=== PATIENT | male | born 1980 | race Caucasian/White ===

== ENCOUNTER 2021-04-05 15:45 | Emergency (ER) | payer MEDICAID, SELFPAY ==
[2021-04-05 18:05] VITALS: BP 154/89; PULSE 71; RESP 16; TEMP 36.3; O2SAT 97; BMI 42.0
[2021-04-05 18:43] LABS: Glucose, Whole Blood 102 mg/dL (60-115)
--- NOTE | 2021-04-07 09:09 | ED.EXTPRO ---
HPI - Extremity Problem General Chief complaint: Extremity Problem Stated complaint: diabetic..foot and hand pain Time Seen by Provider: 04/05/21 18:36 History of Present Illness HPI Narrative: Patient complains of several months of pain in both hands and both feet with no injury He is a diabetic who stopped using his insulin about a year ago, but he does periodically check his fingersticks when they are usually around 200 He has no other complaint no fever no chills no dizziness no weakness Related Data Previous Rx's Medication Instructions Recorded nitrofurantoin 100 mg PO Q12H 5 Days #10 cap 04/05/21 monohydrate/macrocrystals 100 mg capsule (Macrobid) Allergies Allergy/AdvReac Type Severity Reaction Status Date / Time No Known Allergies Allergy Unverified 12/24/19 16:14 [No Known Allergies*] Review of Systems Review of Systems: Bilateral hand and foot pain are positive Negatives are no fever no chills no dizziness no weakness no fainting no feeling faint no headache no neck pain no chest pain no abdominal pain no dysuria no muscle weakness Yes all other systems are reviewed and are negative [facility] Past Medical History Source: nursing notes reviewed Medical History (Updated 04/06/21 @ 00:00 by Background Daemon) Diabetes mellitus, type 2 Social History Social History Advance Directives: No Advance Directives Information Provided: No Physical Exam Vital Signs: Vital Signs: Last Vital Signs Temp 97.3 F 04/05/21 18:05 Pulse 71 04/05/21 18:05 Resp 16 04/05/21 18:05 BP 154/89 H 04/05/21 18:05 Pulse Ox 97 04/05/21 18:05 BMI result Body Mass Index 42.0 General appearance is no acute distress Head is normocephalic atraumatic The pupils equal round reactive to light extraocular motions intact Chest is clear to auscultation bilateral no respiratory distress Extremities full range of motion x4 Exam of both feet does not reveal any redness or swelling or wounds, pulses are 2+ and symmetrical in dorsalis pedis which was easily palpated Both hands are normal in appearance with full range of motion no swelling no wounds Course Course Course Narrative: Patient with possible diabetic neuropathy, no sign of any infection, pulses were all good no sign of any ischemia and hands or feet no wounds, ambulates easily was discharged, prescription for starting dose of Neurontin was sent to pharmacy and he has an appointment with his primary care doctor on the 19 of April in 2 weeks MDM - Extremity (Nontraumatic) Lab Data Labs: Lab Results 04/05/21 Range/Units 18:39 POC Glucose 102 (60-115) mg/dL Discharge Plan Discharge Clinical Impression: Diabetic neuropathy Patient Disposition: Home, Self-Care Additional Instructions: pain in feet and hands may be from diabetic neuropathy which may be caused by untreated diabetes follow with your dr as scheduled apr 19 . it is very important to treat your diabetes and follow with your doctor return any time if worse Prescriptions: New nitrofurantoin monohyd/m-cryst [Macrobid] 100 mg capsule 100 mg PO Q12H 5 Days Qty: 10 RF: 0 Stand Alone Forms: Work/School Release Interventions: ED Discharge Assessment Last Done: 04/05/21 19:11 Discharge Date/Time: 04/05/21 19:19
== END 2021-04-05 19:19 | disposition home or self-care (01) ==
PROVIDERS: Emergency Provider Emergency Medicine Emergency Medical Services; PCP Family Medicine
DX: E11.40 Type 2 diabetes mellitus with diabetic neuropathy, unspecified (principal); M79.642 Pain in left hand; M79.641 Pain in right hand; M79.672 Pain in left foot; M79.671 Pain in right foot; Z91.14 Patient's other noncompliance with medication regimen
CPT/HCPCS: 82947; 99283

== ENCOUNTER 2021-07-23 06:11 | Emergency (ER) | payer MEDICAID, SELFPAY ==
--- NOTE | ~2021-07-23 | CT_ITS ---
EXAMINATION: CT ABDOMEN AND PELVIS WITHOUT CONTRAST CLINICAL INFORMATION: Left flank pain COMPARISON: January 21, 2019 TECHNIQUE: Multidetector volumetric imaging was performed from the superior aspect of the liver through the pubic symphysis. Sagittal and coronal reformatted images were obtained on the technologist's workstation. This CT examination was performed using dose optimization techniques as appropriate, variously including the following: *Automated exposure control *Adjustment of mA and/or kV according to patient size (this includes techniques or standardized protocols for targeted exams where dose is matched to indication/reason for exam; i.e. extremities or head) *Use of iterative reconstruction technique DLP: 625 mGy-cm FINDINGS: LUNG BASES: The visualized lung bases are unremarkable. No pleural or pericardial effusion. LIVER, GALLBLADDER, AND BILIARY TREE: The liver is normal in size, shape, and attenuation. No focal hepatic lesion or biliary ductal dilatation is present. The gallbladder is unremarkable with no evidence of radiopaque gallstones, gallbladder wall thickening, or obvious pericholecystic inflammatory changes. PANCREAS: Unremarkable. No abnormal mass or peripancreatic inflammatory change. SPLEEN: Unremarkable. ADRENAL GLANDS: Unremarkable. KIDNEYS AND URETERS: The right kidney has a nonobstructing 2 mm calculus within the upper pole. No right hydronephrosis identified. No right renal mass is present. Right ureter appears unremarkable. There is mild hydronephrosis of the left upper collecting system. There is a 3 mm partially obstructing proximal left ureteral calculus present. There is also a 1 mm nonobstructing lower pole calculus. BLADDER: Unremarkable. GASTROINTESTINAL TRACT: No dilated loops of large or small bowel are seen. No free air or free fluid. No pericolonic inflammatory change. The appendix appears unremarkable. ABDOMINAL WALL: No significant hernia is appreciated. LYMPH NODES: No lymphadenopathy appreciated. VASCULAR: Unremarkable. PELVIC VISCERA: Prostate gland calcifications present. OSSEOUS STRUCTURES: Unremarkable. There is anterior bridging of the L3-L4 vertebral bodies. CT/CT abdomen pelvis wo con IMPRESSION: Partially obstructing 3 mm proximal left ureteral calculus with mild left hydronephrosis. Bilateral nephrolithiasis. Fleischner guidelines were followed.
[2021-07-23 06:20] VITALS: BP 140/89; PULSE 76; RESP 14; TEMP 36.7; O2SAT 99; BMI 41.1
[2021-07-23 07:26] VITALS: BP 128/82; PULSE 73; RESP 18; TEMP 36.9; O2SAT 97
[2021-07-23 07:40] LABS: MANUAL DIFF FLAG NO
[2021-07-23 07:41] LABS: Basophils Absolute Auto 0.1 X10*3/uL (0.0-0.2); Basophils Percent Auto 0.5 % (0-2); Eosinophils Absolute Auto 0.2 X10*3/uL (0.0-0.4); Eosinophils Percent Auto 1.5 % (0-4); Hematocrit 39.7 % (42.0-52.0); Hemoglobin 13.7 g/dl (14.0-18.0); Imm Gran Abs Auto 0.06 X10*3/uL (0.00-0.03); Imm Gran Pct Auto 0.6 % (0.0-0.4); Lymphocytes Absolute Auto 1.8 X10*3/uL (1.2-4.9); Lymphocytes Percent Auto 17.4 % (20-40); Mean Corpuscular HGB Conc 34.5 g/dl (31.0-36.0); Mean Corpuscular Hemoglobin 31.3 pg (27.0-33.0); Mean Corpuscular Volume 90.6 fL (80.0-98.0); Mean Platelet Volume 10.8 fL (9.4-12.4); Monocytes Absolute Auto 0.8 X10*3/uL (0.1-1.2); Monocytes Percent Auto 7.6 % (2-11); Neutrophils Absolute Auto 7.6 x10*3/uL (2.0-8.3); Neutrophils Percent Auto 72.4 % (45-73); Platelet Count 285 X10*3/uL (160-400); Red Blood Count 4.38 X10*6/uL (4.60-5.80); Red Cell Distribution Width 11.9 % (11.0-16.0); White Blood Count 10.4 X10*3/uL (4.8-10.8)
[2021-07-23 08:03] LABS: Alanine Aminotransferase 11 U/L (0-40); Albumin Level 4.1 g/dL (3.5-5.0); Alkaline Phosphatase 70 U/L (39-117); Anion Gap 12 (12-20); Aspartate Amino Transferase 13 U/L (5-37); Bilirubin Total 0.8 mg/dL (0.0-1.0); Blood Urea Nitrogen 17 mg/dL (9-16); Calcium 9.4 mg/dL (8.4-10.2); Carbon Dioxide 24 mmol/L (22-29); Chloride 105 mmol/L (96-108); Creatinine Clr Calc Pharmacy 131.9; Estimated Glomerular Filt Rate > 60; Glucose Random 144 mg/dL (60-115); Potassium 4.3 mmol/L (3.3-5.1); Sodium 137 mmol/L (135-145); Total Protein 7.2 g/dL (6.5-8.0)
--- NOTE | 2021-07-23 08:07 | ED_ITS ---
HPI - Back Pain/Injury General Chief Complaint: Back Pain/Injury Stated Complaint: left lower back pain Time Seen by Provider: 07/23/21 07:42 Source: patient Mode of arrival: ambulatory Limitations: no limitations History of Present Illness HPI Narrative: 40-year-old male came in for evaluation of left flank pain. Walked into the emergency department for left flank pain that started early this morning woke him up from sleep, pain started as 10/10 severe colicky pain that radiated to the left groin area, associated with dark urine but no blood, no fever, no chills, no nausea, no vomiting. Related Data Previous Rx's Medication Instructions Recorded nitrofurantoin 100 mg PO Q12H 5 Days #10 cap 04/05/21 monohydrate/macrocrystals 100 mg capsule (Macrobid) oxycodone 5 mg tablet 5 mg PO TID PRN #8 tab 07/23/21 prednisone 20 mg tablet 20 mg PO BID #10 tab 07/23/21 tamsulosin 0.4 mg capsule (Flomax) 0.4 mg PO DAILY #7 cap 07/23/21 Allergies Allergy/AdvReac Type Severity Reaction Status Date / Time No Known Allergies Allergy Unverified 12/24/19 16:14 [No Known Allergies*] Review of Systems Review of Systems: All other systems are reviewed and are negative Constitutional: Reports as per HPI and Reports no additional constitutional complaints Eyes: Reports as per HPI and Reports no additional eye complaints Reports system reviewed and no additional complaints, except as documented Cardiovascular: Reports as per HPI and Reports no additional cardiovascular complaints Respiratory: Reports as per HPI and Reports no additional respiratory complaints Gastrointestinal: Reports as per HPI and Reports no additional gastrointestinal complaints Genitourinary: Reports no additional female genitourinary complaints Musculoskeletal: Reports no additional musculoskeletal complaints Skin/Breast: Reports system reviewed and no additional complaints, except as docu Psychiatric: Reports no additional psychiatric complaints Endocrine: Reports no additional endocrine complaints Hematologic/Lymphatic: Reports no additional hematologic/lymphatic complaints Allergic/Immunologic: Reports no additional allergic/immunologic complaints Reports system reviewed and no additional complaints, except as documented and Reports Abnormal speech present [facility] Past Medical History Medical History Diabetes mellitus, type 2 Social History Social History Advance Directives: Yes Advance Directives Information Provided: Yes Advance Directives on File: No Physical Exam Vital Signs: Vital Signs: Last Vital Signs Temp 98.4 F 07/23/21 07:26 Pulse 73 07/23/21 07:26 Resp 18 07/23/21 07:26 BP 128/82 07/23/21 07:26 Pulse Ox 97 07/23/21 07:26 BMI result Body Mass Index 41.1 Vital signs have been reviewed as appeared to be correct. Blood pressure normal. Heart rate normal. Respiration rate normal. Temperature normal. Oxygen saturation normal. Appearance: Alert. Oriented X3. No acute distress. Head: Normal external exam. Normocephalic. Atraumatic. No [place] signs noted. No raccoon eyes noted Eyes: PERRLA. EOMI. Conjunctiva and sclera normal. Eyelids normal. ENT: TM's Normal. Pharynx normal. Uvula midline. Moist mucous membranes. No trismus noted. No drooling noted. No muffled voice noted. Neck: Normal inspection. Neck supple. FROM. No adenopathy. Thyroid Normal. No m eningeal signs. No neck mass noted. CVS: Normal heart rate and rhythm. Heart sound normal. No murmurs noted. Pulses normal throughout. Respiratory: No respiratory distress. Painless inspiration. Breath sounds normal. No wheezes/rales/rhonchi noted. Chest nontender. No accessory muscle usage noted or decreased air movement noted. Abdomen: Soft and nontender. Bowel sounds normal in all 4 quadrants. No distention noted. No organomegaly noted. No visible injury noted. Back: Left CVA tenderness. Full range of motion noted. Skin: Skin warm and dry. Normal skin color. Normal skin turgor. No rashes/lesions/lacerations noted. Extremities: No lower extremity edema. Extremities exhibit normal range of motion. Extremities nontender. Neuro: Oriented X 3. Cranial nerve exam: II-XII are grossly intact No motor deficit. No sensory deficit. Reflexes normal. Course Course Course Narrative: Assessment and plan. 40-year-old male came in with left flank/left abdominal pain, physical exam/CT abdomen and pelvis is consistent with left ureteric 3 mm proximal stone with hydronephrosis, patient now is comfortable. Will discharge the patient on Flomax/prednisone/oxycodone. Patient stated that he does not have an ID which may be an issue for pharmacy to fill the narcotic prescription. Patient is able to tolerate p.o. intake. MDM - Back Pain/Injury Medical Records Attestation: I reviewed the patient's medical records. Lab Data Attestation: I reviewed the patient's lab results. Result diagrams: 07/23/21 07:34 07/23/21 07:34 Labs: Lab Results 07/23/21 07/23/21 07/23/21 Range/Units 07:34 07:34 08:48 WBC 10.4 (4.8-10.8) X10*3/uL RBC 4.38 L (4.60-5.80) X10*6/uL Hgb 13.7 L (14.0-18.0) g/dl Hct 39.7 L (42.0-52.0) % MCV 90.6 (80.0-98.0) fL MCH 31.3 (27.0-33.0) pg MCHC 34.5 (31.0-36.0) g/dl RDW 11.9 (11.0-16.0) % Plt Count 285 (160-400) X10*3/uL MPV 10.8 (9.4-12.4) fL Immature Gran % (Auto) 0.6 H (0.0-0.4) % Neut % (Auto) 72.4 (45-73) % Lymph % (Auto) 17.4 L (20-40) % [place] % (Auto) 7.6 (2-11) % Eos % (Auto) 1.5 (0-4) % Baso % (Auto) 0.5 (0-2) % Lymph # (Auto) 1.8 (1.2-4.9) X10*3/uL [place] # (Auto) 0.8 (0.1-1.2) X10*3/uL Eos # (Auto) 0.2 (0.0-0.4) X10*3/uL Baso # (Auto) 0.1 (0.0-0.2) X10*3/uL Abs Immat Gran (auto) 0.06 H (0.00-0.03) X10*3/uL Absolute Neuts (auto) 7.6 (2.0-8.3) x10*3/uL Absolute Nucleated RBC 0.000 (0.0-0.012) X10*3/uL Nucleated RBC % (auto) 0.0 (0.0-0.2) /100WBC Sodium 137 (135-145) mmol/L Potassium 4.3 (3.3-5.1) mmol/L Chloride 105 (96-108) mmol/L Carbon Dioxide 24 (22-29) mmol/L Anion Gap 12 (12-20) BUN 17 H (9-16) mg/dL Creatinine 0.79 (0.5-1.4) mg/dL Estim Creat Clear Calc 131.9 Estimated GFR > 60 Random Glucose 144 H (60-115) mg/dL Calcium 9.4 (8.4-10.2) mg/dL Total Bilirubin 0.8 (0.0-1.0) mg/dL AST 13 (5-37) U/L ALT 11 (0-40) U/L Alkaline Phosphatase 70 (39-117) U/L Total Protein 7.2 (6.5-8.0) g/dL Albumin 4.1 (3.5-5.0) g/dL Urine Color YELLOW Urine Appearance CLOUDY Urine pH 5.5 (5.0-8.0) Ur Specific [place] >= 1.030 H (1.005-1.025) Urine Protein 1+ H (NEG-TRACE) MG/DL Urine Glucose (UA) NEG (NEG) MG/DL Urine Ketones NEG (NEG) MG/DL Urine Blood 3+ H (NEG) Urine Nitrite NEG (NEG) Ur Leukocyte Esterase NEG (NEG) Urine RBC TNTC H (0) /HPF Urine WBC 0-2 (0-4) /HPF Ur Squamous Epith Cells TRACE /LPF Urine Bacteria TRACE /LPF Urine Mucus TRACE /LPF Imaging Data Abdomen pelvis CT: Attestation: I personally reviewed and interpreted this imaging study as follows: Radiologist's impression: Partially obstructing 3 mm proximal left ureteral calculus with mild left hydronephrosis. ? Discharge Plan Discharge Clinical Impression: Renal colic, Calculus of left ureter Patient Disposition: Home, Self-Care Instructions: Renal Colic (ED) Additional Instructions: Drink plenty of fluid. Prescriptions: New tamsulosin [Flomax] 0.4 mg capsule 0.4 mg PO DAILY Qty: 7 0RF prednisone 20 mg tablet 20 mg PO BID Qty: 10 0RF oxycodone 5 mg tablet 5 mg PO TID PRN (Reason: pain) Qty: 8 0RF No Action nitrofurantoin monohyd/m-cryst [Macrobid] 100 mg capsule 100 mg PO Q12H 5 Days Qty: 10 0RF Rx Instructions: must administer with a meal/food Referrals: Jeremias Oakes MD [Physician] -
[2021-07-23] MEDS: Ketorolac Tromethamine 30 MG/ML VIAL IVPUSH (08:46)
[2021-07-23] MEDS: Morphine Sulfate 2 MG/ML CARTRIDGE 1 MG IVPUSH (08:46)
[2021-07-23 08:58] LABS: Appearance Urine CLOUDY; Color Urine YELLOW; Glucose Urine UA NEG (NEG); Leukocyte Esterase Urine NEG (NEG); Nitrite Urine NEG (NEG); PH 5.5 (5.0-8.0); Specific Gravity - Urine >= 1.030 (1.005-1.025); UACC Culture Trigger NO; Urine Blood 3+ (NEG); Urine Ketones NEG (NEG); Urine Protein 1+ MG/DL (NEG-TRACE)
[2021-07-23 09:06] LABS: Bacteria Urine TRACE /LPF; Mucus Urine TRACE /LPF; RBC Urine TNTC /HPF (0); Squamous Epithelial Cell Urine TRACE /LPF; WBC Urine 0-2 /HPF (0-4)
== END 2021-07-23 11:13 | disposition home or self-care (01) ==
PROVIDERS: Emergency Provider Emergency Medicine
DX: N13.2 Hydronephrosis with renal and ureteral calculous obstruction (principal); E11.9 Type 2 diabetes mellitus without complications
CPT/HCPCS: 36415; 74176; 80053; 81001; 81003; 85025; 96374; 96375; 99284; J1885; J2270

== ENCOUNTER 2021-09-20 08:23 | Outpatient (REF) | payer MEDICAID, SELFPAY ==
--- NOTE | ~2021-09-20 | XR_ITS ---
EXAMINATION: BILATERAL FOOT X-RAY CLINICAL INFORMATION: Pain COMPARISON: None TECHNIQUE: 3 views each foot FINDINGS: Right: Bone alignment is normal. No fracture or dislocation is seen. The joint spaces are normal. There are calcaneal spurs. Left: There is orthopedic hardware with 2 screws in the medial malleolus. Bone alignment is normal. No acute fracture or dislocation is seen the joint spaces are normal. There are calcaneal spurs. XR/XR foot RT min 3V IMPRESSION: Bilateral calcaneal spurs. Orthopedic hardware in the left medial malleolus.
--- NOTE | ~2021-09-20 | XR_ITS ---
EXAMINATION: BILATERAL KNEE X-RAY CLINICAL INFORMATION: Pain COMPARISON: None TECHNIQUE: 3 views of each knee FINDINGS: Left: Bone alignment is normal. No fracture or dislocation is seen. Joint spaces are normal. There is no joint effusion. Right knee: Bone alignment is normal. No fracture or dislocation is seen. Joint spaces are normal. There is no joint effusion. XR/XR knee LT 3V IMPRESSION: Unremarkable exam.
--- NOTE | ~2021-09-20 | XR_ITS ---
EXAMINATION: BILATERAL KNEE X-RAY CLINICAL INFORMATION: Pain COMPARISON: None TECHNIQUE: 3 views of each knee FINDINGS: Left: Bone alignment is normal. No fracture or dislocation is seen. Joint spaces are normal. There is no joint effusion. Right knee: Bone alignment is normal. No fracture or dislocation is seen. Joint spaces are normal. There is no joint effusion. XR/XR knee RT 3V IMPRESSION: Unremarkable exam.
--- NOTE | ~2021-09-20 | XR_ITS ---
EXAMINATION: BILATERAL FOOT X-RAY CLINICAL INFORMATION: Pain COMPARISON: None TECHNIQUE: 3 views each foot FINDINGS: Right: Bone alignment is normal. No fracture or dislocation is seen. The joint spaces are normal. There are calcaneal spurs. Left: There is orthopedic hardware with 2 screws in the medial malleolus. Bone alignment is normal. No acute fracture or dislocation is seen the joint spaces are normal. There are calcaneal spurs. XR/XR foot LT min 3V IMPRESSION: Bilateral calcaneal spurs. Orthopedic hardware in the left medial malleolus.
--- NOTE | 2021-09-20 08:36 | EMG_ITS ---
HISTORY OF PRESENT ILLNESS: This is a 40-year-old man with a 5 year history of type 1 diabetes, on insulin, who comes in with 3 month history of pins and needles paresthesia and pain in his lower extremities. PHYSICAL EXAMINATION: On examination, his strength is normal. No atrophy or fasciculations. Normal reflexes and sensation. IMPRESSION: Rule out peripheral neuropathy. 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 Normal EMG of the right L4 through S1 innervated muscles. MD LUZ ELENA Fernandez/ROMULO / [id number]
== END 2021-09-20 08:24 | disposition home or self-care (01) ==
LOC: HO.NEURO 08:23
PROVIDERS: PCP Family Medicine; Visit Provider Family Medicine
DX: M25.561 Pain in right knee (principal); M25.562 Pain in left knee; M79.671 Pain in right foot; M79.672 Pain in left foot; M79.604 Pain in right leg; M79.605 Pain in left leg; E11.42 Type 2 diabetes mellitus with diabetic polyneuropathy
CPT/HCPCS: 73562; 73630; 95885; 95911

== ENCOUNTER 2021-12-03 20:08 | Emergency (ER) | payer MEDICAID, SELFPAY ==
[2021-12-03 20:12] VITALS: BP 135/74; PULSE 74; RESP 17; TEMP 36.7; O2SAT 100; BMI 36.6
--- NOTE | 2021-12-03 20:44 | ED_ITS ---
HPI - Wound/Laceration General Chief Complaint: Wound/Laceration Stated Complaint: bubble in nail popped, nail coming out, diabetic Source: patient Mode of arrival: ambulatory Limitations: no limitations History of Present Illness HPI narrative: 40-year-old male presents with left 2nd toenail avulsion. States that he is diabetic and is concerned about infection. He does not report fevers or chills, and does not report pain on ambulation. Onset (ago): week(s) Extremity Location: left: foot (Second toe) Place: home Patient tetanus UTD: Yes Context: accidental Associated symptoms: none Related Data Previous Rx's Medication Instructions Recorded nitrofurantoin 100 mg PO Q12H 5 days #10 caps 04/05/21 monohydrate/macrocrystals 100 mg capsule (Macrobid) oxycodone 5 mg tablet 5 mg PO TID PRN pain #8 tabs 07/23/21 prednisone 20 mg tablet 20 mg PO BID #10 tabs 07/23/21 tamsulosin 0.4 mg capsule (Flomax) 0.4 mg PO DAILY #7 caps 07/23/21 tamsulosin 0.4 mg capsule 0.4 mg PO DAILY 7 days #7 caps 07/25/21 Allergies Allergy/AdvReac Type Severity Reaction Status Date / Time No Known Allergies Allergy Verified 12/03/21 20:14 [No Known Allergies*] Review of Systems Review of Systems: Constitutional: No Fever, No Chills ENT/Mouth: No Ear Pain, No Hoarseness, No sore throat Eyes: No Eye Pain, No Swelling, No Redness, No Foreign Body Cardiovascular: No Chest Pain, No SOB Respiratory: No Cough, No Dyspnea Gastrointestinal: No Nausea, No Vomiting, No Diarrhea, No abdominal Pain Genitourinary: No Dysuria, No Hematuria Musculoskeletal: No joint pain, No Myalgias, No Joint Swelling Skin: Left 2nd toe toenail avulsion, No Skin lacerations, No rash Neuro: No Weakness, No Numbness, No Paresthesias, No Loss of Consciousness, No Dizziness, No Headache Psych: No Anxiety/Panic, No Depression Heme/Lymph: no easy bruising, no Lymphadenopathy Endocrine: No Polyuria, No Polydipsia Yes all other systems are reviewed and are negative PMFSH Past Medical History Attestation statement: The following information was validated with the patient. Source: old records reviewed Medical History Diabetes mellitus, type 2 Social History Social History Advance Directives: No Advance Directives Information Provided: No Physical Exam Vital Signs: Vital Signs: Last Vital Signs Temp 98.1 F 12/03/21 20:12 Pulse 74 12/03/21 20:12 Resp 17 12/03/21 20:12 BP 135/74 12/03/21 20:12 Pulse Ox 100 12/03/21 20:12 O2 Del Method 12/03/21 20:12 BMI result Body Mass Index 36.6 Appearance: Alert. Oriented X3. No acute distress. Eyes: Pupils equal, round and reactive to light. ENT: Pharynx normal. Neck: Normal inspection. Neck supple. CVS: Normal heart rate and rhythm. Pulses normal. Respiratory: No respiratory distress. Breath sounds normal. Abdomen: Soft and nontender. Skin: Left 2nd toenail avulsion, Skin warm and dry. Normal skin color. Normal skin turgor. Extremities: No lower extremity edema. Gait well-balanced well coordinated. Neuro: No motor deficit. No sensory deficit. Cranial nerves 2-12 intact Course Course Course Narrative: 40-year-old male presents for evaluation for a left 2nd toenail avulsion, it appears that this toenail has been avulsed from his nail bed for quite some time, there is no tenderness, erythema, or purulent drainage from the site. No indication of infection. Patient was able to remove his toenail in the emergency department without any difficulty. Will have patient follow-up with Podiatry as he is diabetic. No further action required at this time. Patient verbalized understanding of and agrees to plan of care of signs and symptoms indicating need for emergent intervention. MDM - Wound/Laceration Differential Diagnosis Differential diagnosis: Likely avulsion of skin Medical Records Attestation: I reviewed the patient's medical records. Discharge Plan Discharge Clinical Impression: Avulsed toenail Patient Disposition: Home, Self-Care Instructions: Nail Avulsion (ED), Nail Removal (ED) Additional Instructions: You were evaluated for a toenail avulsion. You removed the toenail on her own while you were in the emergency department. There are no signs of infection. Please follow-up with a rehabilitation services manager. You should follow-up with a rehabilitation services manager at least once a year or as recommended because of your diabetes. Return to the emergency department for any new, concerning, or worsening symptoms. Prescriptions: No Action tamsulosin 0.4 mg capsule 0.4 mg PO DAILY 7 Days Qty: 7 0RF nitrofurantoin monohyd/m-cryst [Macrobid] 100 mg capsule 100 mg PO Q12H 5 Days Qty: 10 0RF Rx Instructions: must administer with a meal/food tamsulosin [Flomax] 0.4 mg capsule 0.4 mg PO DAILY Qty: 7 0RF prednisone 20 mg tablet 20 mg PO BID Qty: 10 0RF oxycodone 5 mg tablet 5 mg PO TID PRN (Reason: pain) Qty: 8 0RF Referrals: Martin Escamilla [Physician] - 1 week (Toenail avulsion, diabetic foot check) Interventions: ED Discharge Assessment Last Done: 12/03/21 21:03 Discharge Date/Time: 12/03/21 21:05
== END 2021-12-03 21:05 | disposition home or self-care (01) ==
PROVIDERS: Emergency Provider Internal Medicine; PCP Family Medicine
DX: S91.205A Unspecified open wound of left lesser toe(s) with damage to nail, initial encounter (principal); X58.XXXA Exposure to other specified factors, initial encounter; Y93.9 Activity, unspecified; Y92.9 Unspecified place or not applicable; Y99.9 Unspecified external cause status
CPT/HCPCS: 99282

== ENCOUNTER 2022-08-09 10:26 | Emergency (ER) | payer MEDICAID, SELFPAY ==
[2022-08-09 11:10] VITALS: BP 151/95; PULSE 85; RESP 16; TEMP 36.2; O2SAT 97; BMI 41.1
--- NOTE | 2022-08-09 11:11 | ED_ITS ---
HPI - General Adult General Chief complaint: Abdominal Pain <MADI Beth - Last Filed: 08/09/22 11:13> Stated complaint: vomiting diarrhea abd pain <MADI Beth - Last Filed: 08/09/22 11:13> Time Seen by Provider: 08/09/22 16:02 <MADI Beth - Last Filed: 08/09/22 11:13> Source: patient, RN notes reviewed and old records reviewed <Tommie Rae - Last Filed: 08/09/22 16:17> Mode of arrival: ambulatory <Tommie Rae - Last Filed: 08/09/22 16:17> Limitations: no limitations <Tommie Rae - Last Filed: 08/09/22 16:17> History of Present Illness HPI narrative: 41-year-old male with past medical history significant for diabetes and asthma presents for evaluation of abdominal pain and vomiting Patient reports that his symptoms started yesterday morning. His pain has been intermittent and he has had associated non bloody diarrhea Currently, he actually reports that his pain has resolved and he is not nauseous He denies any history of abdominal surgeries. 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 Denies recent travel or sick contacts <Tommie Rae - Last Filed: 08/09/22 16:17> Related Data Home medications: Previous Rx's Medication Instructions Recorded nitrofurantoin 100 mg PO Q12H 5 days #10 caps 04/05/21 monohydrate/macrocrystals 100 mg capsule (Macrobid) oxycodone 5 mg tablet 5 mg PO TID PRN pain #8 tabs 07/23/21 prednisone 20 mg tablet 20 mg PO BID #10 tabs 07/23/21 tamsulosin 0.4 mg capsule (Flomax) 0.4 mg PO DAILY #7 caps 07/23/21 tamsulosin 0.4 mg capsule 0.4 mg PO DAILY 7 days #7 caps 07/25/21 ondansetron 4 mg disintegrating 4 mg PO Q8H PRN nausea and 08/09/22 tablet vomiting #20 tabs <MADI Beth Last Filed: 08/09/22 11:13> Allergies/adverse reactions: Allergies Allergy/AdvReac Type Severity Reaction Status Date / Time No Known Allergies Allergy Verified 08/09/22 11:10 [No Known Allergies*] <MADI Beth - Last Filed: 08/09/22 11:13> Review of Systems Constitutional: Constitutional: Reports as per HPI, Denies chills, Denies fatigue, Denies fever(s) and Denies headache(s) <Tommie Rae - Last Filed: 08/09/22 16:17> ENT: Denies headache(s) <Tommie Rae - Last Filed: 08/09/22 16:17> Cardiovascular: Cardiovascular: Denies chest pain and Denies dyspnea <Tommie Rae - Last Filed: 08/09/22 16:17> Respiratory: Respiratory: Denies cough and Denies dyspnea <Tommie Rae Last Filed: 08/09/22 16:17> Gastrointestinal: Gastrointestinal: Reports abdominal pain, Denies hematochezia, Denies constipation, Reports diarrhea, Reports nausea and Reports vomiting <Tommie Rae - Last Filed: 08/09/22 16:17> Genitourinary: Genitourinary: Denies difficulty urinating and Denies dysuria <Tommie Rae - Last Filed: 08/09/22 16:17> Neurologic: Denies headache(s) and Denies focal weakness <Tommie Rae - Last Filed: 08/09/22 16:17> Endocrine: Endocrine: Denies fatigue <Tommie Rae - Last Filed: 08/09/22 16:17> [facility] Past Medical History Medical History: Medical History Diabetes mellitus, type 2 <MADI Beth - Last Filed: 08/09/22 11:13> Social History Social History: Social History Advance Directives: No <MADI Beth - Last Filed: 08/09/22 11:13> Physical Exam ED Vital Signs: Vital Signs - 24 hr 08/09/22 11:10 08/09/22 15:53 Temperature 97.1 F Pulse Rate 85 84 Respiratory Rate 16 16 Blood Pressure 151/95 H 146/95 H Pulse Oximetry 97 98 Oxygen Delivery Method Room Air Room Air BMI result Body Mass Index 41.1 <MADI Beth - Last Filed: 08/09/22 11:13> Vital Signs - 24 hr 08/09/22 11:10 08/09/22 15:53 Temperature 97.1 F Pulse Rate 85 84 Respiratory Rate 16 16 Blood Pressure 151/95 H 146/95 H Pulse Oximetry 97 98 Oxygen Delivery Method Room Air Room Air BMI result Body Mass Index 41.1 <Tommie Rae - Last Filed: 08/09/22 16:17> Const General: healthy appearing, comfortable, no acute distress, alert and awake <Tommie Rae - Last Filed: 08/09/22 16:17> Nutritional Appearance: well nourished <Tommie Rae - Last Filed: 08/09/22 16:17> Orientation/consciousness: patient oriented x3 <Tommie Rae - Last Filed: 08/09/22 16:17> HENMT Head: Yes normocephalic and Yes atraumatic <Tommie Rae - Last Filed: 08/09/22 16:17> Throat: Yes posterior oropharynx normal <Tommie Rae - Last Filed: 08/09/22 16:17> Eyes Eyelids: Yes eyelids normal <Tommie Rae - Last Filed: 08/09/22 16:17> Conjunctivae: conjunctivae normal <Tommie Rae - Last Filed: 08/09/22 16:17> Sclerae: sclerae normal <Tommie Rae - Last Filed: 08/09/22 16:17> Corneas: corneas normal <Tommie Rae - Last Filed: 08/09/22 16:17> Pupils: Equal, round and reactive pupils present <Tommie Rae - Last Filed: 08/09/22 16:17> EOM: EOMs intact bilaterally <Tommie Rae - Last Filed: 08/09/22 16:17> Neck Neck: Yes full ROM <Tommie Rae - Last Filed: 08/09/22 16:17> Resp Effort & Inspection: normal respiratory effort, able to speak in complete sentences, no audible wheezes and not labored <Tommie Rae - Last Filed: 08/09/22 16:17> Auscultation: clear to auscultation bilaterally <Tommie Rae - Last Filed: 08/09/22 16:17> Cardio Rate: regular rate <Tommie Rae - Last Filed: 08/09/22 16:17> Rhythm: regular rhythm <Tommie Rae - Last Filed: 08/09/22 16:17> GI Inspection: No distended <Tommie Rae - Last Filed: 08/09/22 16:17> Palpation (GI): Soft to palpation, not firm, nontender, no guarding and not rigid <Tommie Rae - Last Filed: 08/09/22 16:17> Auscultation: normoactive bowel sounds <Tommie Rae - Last Filed: 08/09/22 16:17> Skin General skin exam: no rashes or lesions noted and elasticity normal <Tommie Rae - Last Filed: 08/09/22 16:17> Neuro General: patient oriented x3 <Tommie Rae - Last Filed: 08/09/22 16:17> Cranial nerves: Yes Equal, round and reactive pupils present and Yes Bilaterally intact EOM present <Tommie Rae - Last Filed: 08/09/22 16:17> Cognition (Neuro): normal cognition <Tommie Rae - Last Filed: 08/09/22 16:17> Extrem Other: Moving all extremities well without any obvious deformities <Tommie Rae - Last Filed: 08/09/22 16:17> Course Course Course Narrative: This is an RME: Additional HPI, ROS, PE not included below will be deferred to primary provider. 41 year old male hx of neuropathy, DM and asthma presents w/ diffuse abd pain, N/V/D X 2 days also reports funny smelling burps. No fevers or chills. No sick contacts PE- benign, well appearing. Plan- labs <MADI Beth - Last Filed: 08/09/22 11:13> Medications Administered Discontinued Medications Generic Name Dose Route Start Last Admin Trade Name Freq PRN Reason Stop Dose Admin Al Hydroxide/Mg Hydroxide 30 ml 08/09/22 11:11 08/09/22 15:57 Magnesium Hydrox/Alum Hydrox 30 Ml Oral.Susp PO 08/09/22 11:12 30 ml ONCE ONE Administration <MADI Beth - Last Filed: 08/09/22 11:13> Medications Administered Discontinued Medications Generic Name Dose Route Start Last Admin Trade Name Freq PRN Reason Stop Dose Admin Al Hydroxide/Mg Hydroxide 30 ml 08/09/22 11:11 08/09/22 15:57 Magnesium Hydrox/Alum Hydrox 30 Ml Oral.Susp PO 08/09/22 11:12 30 ml ONCE ONE Administration <Tommie Rae - Last Filed: 08/09/22 16:17> Medical Decision Making Medical Decision Making [facility] Narrative: 41-year-old male past medical history stated for diabetes and asthma presents for evaluation of abdominal pain and vomiting. At the time my evaluation he reports he feels much better is not having abdominal pain or nausea. His physical exam is reassuring as he is nontender. The patient is mildly hypertensive otherwise his vital signs are within normal limits. Patient has a slight leukocytosis of 13.4kwhich may be reactive related to his vomiting. He has a sodium of 134 over just below normal and a mild hyperglycemia of 170 but no evidence of DKA. Discussed possible CT imaging with the patient, however because he is feeling much better and has reassuring exam I feel this is not necessary at this time and the patient agrees. <Tommie Rae - Last Filed: 08/09/22 16:17> Differential Diagnosis Abdominal pain Gastroenteritis Colitis Diverticulitis Cholecystitis Acute appendicitis <Tommie Rae - Last Filed: 08/09/22 16:17> Lab Data [facility] Lab Attestation statement: I reviewed the patient's lab results. <Tommie Rae - Last Filed: 08/09/22 16:17> Result Diagrams: 08/09/22 11:18 08/09/22 11:18 <MADI Beth - Last Filed: 08/09/22 11:13> Labs: Lab Results 08/09/22 08/09/2223 Range/Units 11:18 11:18 11:18 WBC 13.4 H (4.8-10.8) X10*3/uL RBC 4.85 (4.60-5.80) X10*6/uL Hgb 15.1 (14.0-18.0) g/dl Hct 43.8 (42.0-52.0) % MCV 90.3 (80.0-98.0) fL MCH 31.1 (27.0-33.0) pg MCHC 34.5 (31.0-36.0) g/dl RDW 12.0 (11.0-16.0) % Plt Count 300 (160-400) X10*3/uL MPV 10.7 (9.4-12.4) fL Immature Gran % (Auto) 0.7 H (0.0-0.4) % Neut % (Auto) 71.6 (45-73) % Lymph % (Auto) 14.8 L (20-40) % [place] % (Auto) 9.9 (2-11) % Eos % (Auto) 2.6 (0-4) % Baso % (Auto) 0.4 (0-2) % Lymph # (Auto) 2.0 (1.2-4.9) X10*3/uL [place] # (Auto) 1.3 H (0.1-1.2) X10*3/uL Eos # (Auto) 0.4 (0.0-0.4) X10*3/uL Baso # (Auto) 0.1 (0.0-0.2) X10*3/uL Abs Immat Gran (auto) 0.10 H (0.00-0.03) X10*3/uL Absolute Neuts (auto) 9.6 H (2.0-8.3) x10*3/uL Absolute Nucleated RBC 0.000 (0.0-0.012) X10*3/uL Nucleated RBC % (auto) 0.0 (0.0-0.2) /100WBC Sodium 134 L (135-145) mmol/L Potassium 4.4 (3.3-5.1) mmol/L Chloride 107 (96-108) mmol/L Carbon Dioxide 20 L (22-29) mmol/L Anion Gap 11 L (12-20) BUN 14 (9-16) mg/dL Creatinine 0.85 (0.5-1.4) mg/dL Estim Creat Clear Calc 121.4 Estimated GFR > 60 Random Glucose 170 H (60-115) mg/dL Calcium 9.4 (8.4-10.2) mg/dL Magnesium 1.9 (1.6-2.6) mg/dL Total Bilirubin 0.8 (0.0-1.0) mg/dL AST 14 (5-37) U/L ALT 15 (0-40) U/L Alkaline Phosphatase 92 (39-117) U/L Total Protein 7.8 (6.5-8.0) g/dL Albumin 4.5 (3.5-5.0) g/dL Lipase 40 (8-78) U/L COVID-19 (ROMI) (Negative) COVID-19 Clin Com Influenza Type A (ABUNDIO) Negative (Negative) Influenza Type B (ABUNDIO) Negative (Negative) Influenza A & B Note See Note 08/09/22 Range/Units 11:18 WBC (4.8-10.8) X10*3/uL RBC (4.60-5.80) X10*6/uL Hgb (14.0-18.0) g/dl Hct (42.0-52.0) % MCV (80.0-98.0) fL MCH (27.0-33.0) pg MCHC (31.0-36.0) g/dl RDW (11.0-16.0) % Plt Count (160-400) X10*3/uL MPV (9.4-12.4) fL Immature Gran % (Auto) (0.0-0.4) % Neut % (Auto) (45-73) % Lymph % (Auto) (20-40) % [place] % (Auto) (2-11) % Eos % (Auto) (0-4) % Baso % (Auto) (0-2) % Lymph # (Auto) (1.2-4.9) X10*3/uL [place] # (Auto) (0.1-1.2) X10*3/uL Eos # (Auto) (0.0-0.4) X10*3/uL Baso # (Auto) (0.0-0.2) X10*3/uL Abs Immat Gran (auto) (0.00-0.03) X10*3/uL Absolute Neuts (auto) (2.0-8.3) x10*3/uL Absolute Nucleated RBC (0.0-0.012) X10*3/uL Nucleated RBC % (auto) (0.0-0.2) /100WBC Sodium (135-145) mmol/L Potassium (3.3-5.1) mmol/L Chloride (96-108) mmol/L Carbon Dioxide (22-29) mmol/L Anion Gap (12-20) BUN (9-16) mg/dL Creatinine (0.5-1.4) mg/dL Estim Creat Clear Calc Estimated GFR Random Glucose (60-115) mg/dL Calcium (8.4-10.2) mg/dL Magnesium (1.6-2.6) mg/dL Total Bilirubin (0.0-1.0) mg/dL AST (5-37) U/L ALT (0-40) U/L Alkaline Phosphatase (39-117) U/L Total Protein (6.5-8.0) g/dL Albumin (3.5-5.0) g/dL Lipase (8-78) U/L COVID-19 (ROMI) Negative (Negative) COVID-19 Clin Com See Note Influenza Type A (ABUNDIO) (Negative) Influenza Type B (ABUNDIO) (Negative) Influenza A & B Note <MADI Beth - Last Filed: 08/09/22 11:13> Lab Results 08/09/22 08/09/22 08/09/22 Range/Units 11:18 11:18 11:18 WBC 13.4 H (4.8-10.8) X10*3/uL RBC 4.85 (4.60-5.80) X10*6/uL Hgb 15.1 (14.0-18.0) g/dl Hct 43.8 (42.0-52.0) % MCV 90.3 (80.0-98.0) fL MCH 31.1 (27.0-33.0) pg MCHC 34.5 (31.0-36.0) g/dl RDW 12.0 (11.0-16.0) % Plt Count 300 (160-400) X10*3/uL MPV 10.7 (9.4-12.4) fL Immature Gran % (Auto) 0.7 H (0.0-0.4) % Neut % (Auto) 71.6 (45-73) % Lymph % (Auto) 14.8 L (20-40) % [place] % (Auto) 9.9 (2-11) % Eos % (Auto) 2.6 (0-4) % Baso % (Auto) 0.4 (0-2) % Lymph # (Auto) 2.0 (1.2-4.9) X10*3/uL [place] # (Auto) 1.3 H (0.1-1.2) X10*3/uL Eos # (Auto) 0.4 (0.0-0.4) X10*3/uL Baso # (Auto) 0.1 (0.0-0.2) X10*3/uL Abs Immat Gran (auto) 0.10 H (0.00-0.03) X10*3/uL Absolute Neuts (auto) 9.6 H (2.0-8.3) x10*3/uL Absolute Nucleated RBC 0.000 (0.0-0.012) X10*3/uL Nucleated RBC % (auto) 0.0 (0.0-0.2) /100WBC Sodium 134 L (135-145) mmol/L Potassium 4.4 (3.3-5.1) mmol/L Chloride 107 (96-108) mmol/L Carbon Dioxide 20 L (22-29) mmol/L Anion Gap 11 L (12-20) BUN 14 (9-16) mg/dL Creatinine 0.85 (0.5-1.4) mg/dL Estim Creat Clear Calc 121.4 Estimated GFR > 60 Random Glucose 170 H (60-115) mg/dL Calcium 9.4 (8.4-10.2) mg/dL Magnesium 1.9 (1.6-2.6) mg/dL Total Bilirubin 0.8 (0.0-1.0) mg/dL AST 14 (5-37) U/L ALT 15 (0-40) U/L Alkaline Phosphatase 92 (39-117) U/L Total Protein 7.8 (6.5-8.0) g/dL Albumin 4.5 (3.5-5.0) g/dL Lipase 40 (8-78) U/L COVID-19 (ROMI) (Negative) COVID-19 Clin Com Influenza Type A (ABUNDIO) Negative (Negative) Influenza Type B (ABUNDIO) Negative (Negative) Influenza A & B Note See Note 08/09/22 Range/Units 11:18 WBC (4.8-10.8) X10*3/uL RBC (4.60-5.80) X10*6/uL Hgb (14.0-18.0) g/dl Hct (42.0-52.0) % MCV (80.0-98.0) fL MCH (27.0-33.0) pg MCHC (31.0-36.0) g/dl RDW (11.0-16.0) % Plt Count (160-400) X10*3/uL MPV (9.4-12.4) fL Immature Gran % (Auto) (0.0-0.4) % Neut % (Auto) (45-73) % Lymph % (Auto) (20-40) % [place] % (Auto) (2-11) % Eos % (Auto) (0-4) % Baso % (Auto) (0-2) % Lymph # (Auto) (1.2-4.9) X10*3/uL [place] # (Auto) (0.1-1.2) X10*3/uL Eos # (Auto) (0.0-0.4) X10*3/uL Baso # (Auto) (0.0-0.2) X10*3/uL Abs Immat Gran (auto) (0.00-0.03) X10*3/uL Absolute Neuts (auto) (2.0-8.3) x10*3/uL Absolute Nucleated RBC (0.0-0.012) X10*3/uL Nucleated RBC % (auto) (0.0-0.2) /100WBC Sodium (135-145) mmol/L Potassium (3.3-5.1) mmol/L Chloride (96-108) mmol/L Carbon Dioxide (22-29) mmol/L Anion Gap (12-20) BUN (9-16) mg/dL Creatinine (0.5-1.4) mg/dL Estim Creat Clear Calc Estimated GFR Random Glucose (60-115) mg/dL Calcium (8.4-10.2) mg/dL Magnesium (1.6-2.6) mg/dL Total Bilirubin (0.0-1.0) mg/dL AST (5-37) U/L ALT (0-40) U/L Alkaline Phosphatase (39-117) U/L Total Protein (6.5-8.0) g/dL Albumin (3.5-5.0) g/dL Lipase (8-78) U/L COVID-19 (ROMI) Negative (Negative) COVID-19 Clin Com See Note Influenza Type A (ABUNDIO) (Negative) Influenza Type B (ABUNDIO) (Negative) Influenza A & B Note <Tommie Rae - Last Filed: 08/09/22 16:17> Discharge Plan Discharge Clinical Impression: Acute nausea with nonbilious vomiting <MADI Beth - Last Filed: 08/09/22 11:13> Patient Disposition: Home, Self-Care <MADI Beth - Last Filed: 08/09/22 11:13> Instructions: Acute Nausea and Vomiting (ED) <MADI Beth - Last Filed: 08/09/22 11:13> Additional Instructions: Your pain and vomiting is most likely related to a stomach virus Your blood work was reassuring Take Zofran as needed for any further nausea and vomiting Use Tylenol as needed for pain Return to the ER if your pain returns or if you develop a fever for possible CT imaging Follow-up with your primary doctor <MADI Beth - Last Filed: 08/09/22 11:13> Prescriptions: New ondansetron 4 mg tablet,disintegrating 4 mg PO Q8H PRN (Reason: nausea and vomiting) Qty: 20 0RF No Action tamsulosin 0.4 mg capsule 0.4 mg PO DAILY 7 Days Qty: 7 0RF nitrofurantoin monohyd/m-cryst [Macrobid] 100 mg capsule 100 mg PO Q12H 5 Days Qty: 10 0RF Rx Instructions: must administer with a meal/food tamsulosin [Flomax] 0.4 mg capsule 0.4 mg PO DAILY Qty: 7 0RF prednisone 20 mg tablet 20 mg PO BID Qty: 10 0RF oxycodone 5 mg tablet 5 mg PO TID PRN (Reason: pain) Qty: 8 0RF <MADI Beth - Last Filed: 08/09/22 11:13> Stand Alone Forms: Work/School Release <MADI Beth - Last Filed: 08/09/22 11:13>
[2022-08-09 11:23] LABS: MANUAL DIFF FLAG NO
[2022-08-09 11:30] LABS: Basophils Absolute Auto 0.1 X10*3/uL (0.0-0.2); Basophils Percent Auto 0.4 % (0-2); Eosinophils Absolute Auto 0.4 X10*3/uL (0.0-0.4); Eosinophils Percent Auto 2.6 % (0-4); Hematocrit 43.8 % (42.0-52.0); Hemoglobin 15.1 g/dl (14.0-18.0); Imm Gran Pct Auto 0.7 % (0.0-0.4); Lymphocytes Percent Auto 14.8 % (20-40); Mean Corpuscular HGB Conc 34.5 g/dl (31.0-36.0); Mean Corpuscular Hemoglobin 31.1 pg (27.0-33.0); Mean Corpuscular Volume 90.3 fL (80.0-98.0); Mean Platelet Volume 10.7 fL (9.4-12.4); Monocytes Absolute Auto 1.3 X10*3/uL (0.1-1.2); Monocytes Percent Auto 9.9 % (2-11); Neutrophils Absolute Auto 9.6 x10*3/uL (2.0-8.3); Neutrophils Percent Auto 71.6 % (45-73); Platelet Count 300 X10*3/uL (160-400); Red Blood Count 4.85 X10*6/uL (4.60-5.80); White Blood Count 13.4 X10*3/uL (4.8-10.8)
[2022-08-09 11:45] LABS: COVID-19 Test Negative (Negative); IDNOW Serial# BCCEAD1C
[2022-08-09 11:46] LABS: IDNOW Serial# 9DB6401D; Influenza A Negative (Negative); Influenza B2 Negative (Negative)
[2022-08-09 11:49] LABS: Alanine Aminotransferase 15 U/L (0-40); Albumin Level 4.5 g/dL (3.5-5.0); Alkaline Phosphatase 92 U/L (39-117); Anion Gap 11 (12-20); Aspartate Amino Transferase 14 U/L (5-37); Bilirubin Total 0.8 mg/dL (0.0-1.0); Blood Urea Nitrogen 14 mg/dL (9-16); Calcium 9.4 mg/dL (8.4-10.2); Carbon Dioxide 20 mmol/L (22-29); Chloride 107 mmol/L (96-108); Creatinine Clr Calc Pharmacy 121.4; Estimated Glomerular Filt Rate > 60; Glucose Random 170 mg/dL (60-115); Lipase 40 U/L (8-78); Magnesium 1.9 mg/dL (1.6-2.6); Potassium 4.4 mmol/L (3.3-5.1); Sodium 134 mmol/L (135-145); Total Protein 7.8 g/dL (6.5-8.0)
[2022-08-09 15:53] VITALS: BP 146/95; PULSE 84; RESP 16; O2SAT 98
[2022-08-09] MEDS: Magnesium Hydrox/Alum Hydrox 30 ML ORAL.SUSP PO (15:57)
== END 2022-08-09 16:21 | disposition home or self-care (01) ==
PROVIDERS: Physician Assistant; Emergency Provider Student in an Organized Health Care Education/Training Program; PCP Family Medicine
DX: R11.2 Nausea with vomiting, unspecified (principal); E11.9 Type 2 diabetes mellitus without complications; Z20.822 Contact with and (suspected) exposure to COVID-19; Z79.899 Other long term (current) drug therapy
CPT/HCPCS: 80053; 83690; 83735; 85025; 87502; 87635; 99282; 99283

== ENCOUNTER 2023-01-01 12:55 | Outpatient (AMB) | payer MEDICAID, SELFPAY ==
--- NOTE | 2023-01-01 12:56 | MHC.OFFVIS ---
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 Patient states I have neuropathy and I'm constantlly moving in my bed, the mask was too uncomfortable. im also having issues falling alseep. Allergies No Known Allergies [No Known Allergies*] Allergy (Verified 01/01/23 13:04) Medication List - Last Reconciled 01/01/23 by Tasha Ha CNP gabapentin 400 mg PO BEDTIME insulin glargine (Lantus Solostar U-100 Insulin) 10 units subcut QPM insulin lispro (Humalog Cristian KwikPen (U-100)) 1 sliding scale dose subcut USEASDIRECTD lisinopril 10 mg PO DAILY nitrofurantoin monohyd/m-cryst 100 mg (Macrobid) 100 mg PO Q12H 5 days ondansetron 4 mg PO Q8H PRN oxycodone 5 mg PO TID PRN tamsulosin (Flomax) 0.4 mg PO DAILY tamsulosin 0.4 mg PO DAILY 7 days HPI HPI Comments History of Present Illness Details 42 y/o male patient with HTN, T2DM and ALEC presents for new in-person visit to manage ALEC. Pt was diagnosed with ALEC in November 2021, and tried CPAP. Pt did not tolerate CPAP at that time and returned CPAP. His noticed that his symptoms has been worsened. He gained about 40 lb since the last sleep study and snores more. He has non refreshing sleep, wakes up at least 4 times at night and having daytime tiredness and sleepiness. Sleep questionnaire: Have you ever been diagnosed with a sleep disorder? Yes, ALEC and PLMD. Have you ever had a sleep study in the past? Yes. Have you ever been treated for a sleep disorder? Yes, CPAP but very short time of period. Do you take medications for a sleep disorder? gabapentin 400 mg. Do you snore? Yes. Do you wake up gasping at night? No. Do you have episodes of apneas? Yes. If yes, are they witnessed? Yes, by his . Do you have episodes of nocturnal chest pain or dyspnea? Yes. Do you have difficulty initiating sleep? Yes. Do you have difficulty maintaining sleep? Yes. Do you wake up tired? Yes. Do you have headaches upon awakening? No. Do you wake up with dry mouth or throat? Yes. Do you have GERD? No. Do you have nocturia? Yes, 3-4 times at night. Do you have nocturnal leg cramps? Yes. Do you have symptoms of restless legs? Yes. Do you act out your dreams? No. Sleep hygiene questionnaire: What is your usual sleep routine? Usual bedtime is at 10 pm; Usual wake up time is at 6 am. Do you take naps? No. Is your sleep environment cool, dark, and quiet? No, TV is on. Do you exercise? Not really, but work and not sitting at work. Do you take caffeine or other stimulants? 2 cup of coffee a day. Do you use electronics in bed? Yes, watches TV. What is your work schedule? 7 am to 3 pm. Hypersomnolence questionnaire: Do you have daytime tiredness or fatigue? Yes. Do you easily fall asleep when inactive? Yes. Have you ever had episodes of sudden weakness? No. Have you ever had episodes of sudden weakness associated with strong emotions? No. [facility] Medical History (Updated 01/01/23 @ 13:42 by Tasha Ha CNP) Diabetes mellitus, type 2 Surgical History (Updated 01/01/23 @ 13:06 by ANNAMARIA Marmloejo) History of ankle surgery Family History (Updated 01/01/23 @ 13:07 by ANNAMARIA Marmolejo) Father Cancer Mother Cancer Social History (Updated 01/01/23 @ 13:07 by ANNAMARIA Marmolejo) Alcohol intake: never Patient Tobacco Use Status: Never used Tobacco Review of Systems Const All systems reviewed & are unremarkable except as noted in HPI and below ENT Reports Normal hearing present Neuro Reports Normal hearing present Physical Exam Vital Signs: Last Vital Signs Pulse 97 01/01/23 13:07 BP 144/72 H 01/01/23 13:07 Pulse Ox 98 01/01/23 13:07 Oxygen Delivery Method Room Air 01/01/23 13:07 BMI result Body Mass Index 43.5 Const General: cooperative and tired appearing Nutritional Appearance: obese Orientation/consciousness: patient oriented x3 Neck Neck: Yes full ROM and Yes supple Resp Effort & Inspection: normal respiratory effort and able to speak in complete sentences Neuro General: patient oriented x3, gait normal and moves all extremities Cranial nerves: Yes Bilaterally intact EOM present, Yes Normal facial strength present, Yes Midline tongue present, Yes Symmetric palate elevation present, Yes Normal hearing present, Yes Ability to bilaterally rotate head present and Yes Ability to bilaterally elevate shoulders present Cognition (Neuro): normal cognition Gait exam (Neuro): Normal gait present Motor exam (neuro): 5/5 motor strength present throughout and Pronator motor function not present Psych Appearance: grossly normal Mental Status: mental status grossly normal Speech and movement: Normal speech and movement present Affect: normal affect Attitude: cooperative Assessment & Plan Assessment & Plan (1) Excessive daytime sleepiness: Code(s): G47.19 - Other hypersomnia (2) ALEC (obstructive sleep apnea): Code(s): G47.33 - Obstructive sleep apnea (adult) (pediatric) Plan Pt is advised to undergo in lab sleep study to assess for sleep apnea. Will f/u with pt after study to discuss results and appropriate treatment options. Wt reduction advised. Sleep hygiene education provided. Pt to call with any worsening concerns or questions. Orders: Orders RT PSG in-lab sleep study 01/01/23 E11.9 - Type 2 diabetes mellitus without complications, E66.01 - Morbid (severe) obesity due to excess calories, G47.19 - Other hypersomnia, G47.33 - Obstructive sleep apnea (adult) (pediatric), I10 - Essential (primary) hypertension Medications: New B-complex with vitamin C 1 cap PO DAILY 30 caps 5RF 30 days Coding Level of Care Code New Pt Level 4 (65997) Diagnoses Excessive daytime sleepiness G47.19 ALEC (obstructive sleep apnea) G47.33
[2023-01-01 13:07] VITALS: BP 144/72; PULSE 97; O2SAT 98; BMI 43.5
== END 2023-01-01 13:47 | disposition home or self-care (01) ==
LOC: HO.HSMC 12:55
PROVIDERS: PCP Family Medicine; Visit Provider Nurse Practitioner Family
DX: G47.19 Other hypersomnia (principal); G47.33 Obstructive sleep apnea (adult) (pediatric)
CPT/HCPCS: 99204

== ENCOUNTER → 2023-01-01 12:55 | Outpatient (BNVA) | payer OTHER, SELFPAY | PROVIDERS: PCP Family Medicine; Visit Provider Nurse Practitioner Family | DX: G47.33 Obstructive sleep apnea (adult) (pediatric) (principal); G47.19 Other hypersomnia | CPT/HCPCS: 99212 ==

== ENCOUNTER 2023-01-07 11:30 | Outpatient (REF) | payer OTHER, SELFPAY ==
[2023-01-07 14:14] LABS: Microalbum/Creatinine Ratio Ur 23.5 ug/mg cr (<30)
[2023-01-07 14:29] LABS: Alanine Aminotransferase 21 U/L (0-40); Albumin Level 4.4 g/dL (3.5-5.0); Alkaline Phosphatase 101 U/L (39-117); Anion Gap 16 (12-20); Aspartate Amino Transferase 17 U/L (5-37); Bilirubin Total 0.5 mg/dL (0.0-1.0); Blood Urea Nitrogen 17 mg/dL (9-16); Calcium 10.1 mg/dL (8.4-10.2); Carbon Dioxide 23 mmol/L (22-29); Chloride 100 mmol/L (96-108); Estimated Glomerular Filt Rate > 60; Glucose Random 307 mg/dL (60-115); Magnesium 1.9 mg/dL (1.6-2.6); Potassium 4.6 mmol/L (3.3-5.1); Sodium 134 mmol/L (135-145); TSH reflex Free T4 0.96 uIU/mL (0.32-4.0); Total Protein 8.1 g/dL (6.5-8.0)
[2023-01-07 14:48] LABS: Cholesterol 170 mg/dL (<200); HDL Cholesterol 38 mg/dL (>40); LDL Cholesterol Calculated 104 mg/dL (<100); Triglycerides 142 mg/dL (<150)
[2023-01-07 15:03] LABS: Prostate Specific Antigen 0.56 ng/mL (<0.05-4.0); Vitamin B12 453 pg/mL (200-900)
[2023-01-07 15:04] LABS: ~HepC Num1 0.11 S/CO (0.00-0.79); ~Hepatitis C Antibody Nonreactive (Nonreactive)
[2023-01-07 15:47] LABS: Reflex LDLD? No
== END 2023-01-07 11:31 | disposition home or self-care (01) ==
LOC: HO.HHCL 11:30
PROVIDERS: Visit Provider Family Medicine
DX: Z12.5 Encounter for screening for malignant neoplasm of prostate (principal); E11.42 Type 2 diabetes mellitus with diabetic polyneuropathy; R39.11 Hesitancy of micturition; R25.2 Cramp and spasm; Z79.4 Long term (current) use of insulin
CPT/HCPCS: 36415; 80053; 80061; 82043; 82570; 82607; 82746; 83735; 84153; 84443; 86803

== ENCOUNTER 2023-03-19 15:28 | Outpatient (REF) | payer OTHER, SELFPAY ==
[2023-03-19 16:47] LABS: Anion Gap 13 (12-20); Blood Urea Nitrogen 16 mg/dL (9-16); Calcium 9.9 mg/dL (8.4-10.2); Carbon Dioxide 28 mmol/L (22-29); Chloride 100 mmol/L (96-108); Estimated Glomerular Filt Rate > 60; Glucose Random 272 mg/dL (60-115); Potassium 4.4 mmol/L (3.3-5.1); Sodium 137 mmol/L (135-145)
== END 2023-03-19 15:29 | disposition home or self-care (01) ==
LOC: HO.HHCL 15:28
PROVIDERS: Visit Provider Family Medicine
DX: I10 Essential (primary) hypertension (principal)
CPT/HCPCS: 36415; 80048

== ENCOUNTER 2023-03-22 12:24 | Emergency (ER) | payer OTHER, SELFPAY ==
--- NOTE | ~2023-03-22 | CT_ITS ---
EXAMINATION: CT HEAD WITHOUT CONTRAST CLINICAL INFORMATION: Dizziness and headache. COMPARISON: No relevant prior imaging. TECHNIQUE: Contiguous axial imaging was performed from the skull base to vertex without intravenous administration of contrast. This CT examination was performed using dose optimization techniques as appropriate, variously including the following: *Automated exposure control *Adjustment of mA and/or kV according to patient size (this includes techniques or standardized protocols for targeted exams where dose is matched to indication/reason for exam; i.e. extremities or head) *Use of iterative reconstruction technique DLP: 755 mGy-cm FINDINGS: There is no acute intracranial hemorrhage or abnormal extra-axial collection. No intracranial mass effect or midline shift. Lateral and third ventricles are normal. No hydrocephalus. Serra-white matter differentiation is preserved and there is no evidence of acute territorial infarct. The calvarium and skull base are intact. Mastoid air cells and middle ear cavities are well aerated. There is a retention cyst is partially visualized within the alveolar recess of the left maxillary sinus and there is partial opacification of the ethmoid air cells. CT/CT head/brain wo IV con IMPRESSION: Unremarkable CT scan of the head. No evidence of acute territorial infarct or hemorrhage.
--- NOTE | ~2023-03-22 | XR_ITS ---
EXAMINATION: XR CHEST CLINICAL INFORMATION: Dizziness. COMPARISON: None available. TECHNIQUE: 2 views of the chest were obtained. FINDINGS: No significant abnormality is noted involving the heart, lungs, mediastinum, bony thorax or soft tissues. XR/XR chest 2V IMPRESSION: Unremarkable chest examination.
[2023-03-22 12:30] VITALS: BP 136/88; PULSE 89; RESP 20; TEMP 36.1; O2SAT 96; BMI 42.1
--- NOTE | 2023-03-22 12:30 | ED_ITS ---
HPI - General Adult General Chief complaint: General Medical Stated complaint: Headache Dizzy High Blood Pressure Time Seen by Provider: 03/22/23 13:01 Source: patient Mode of arrival: ambulatory Limitations: no limitations History of Present Illness HPI narrative: 42 yo male with PMH of obesity, HTN, DM, ALEC notes for the past week his BP have been running 170/100 with some AM headaches and dizziness at times but no weakness, numbness or chest pain. He went to urgent care and they increased his lisinopril to 20mg from 10mg and start amlodipine 2.5mg. He notes he has been taking it x 2 days and his BP is still up. He also notes due to insurance issues he has not been able to use his CPAP. He has also gained some weight. MD complaint: HTN Onset (ago): week(s) (1) Location: head Radiation: non-radiation Severity: mild Quality: aching Pain Consistency: intermittent Relieving factors: none Exacerbating factors: medication Associated symptoms: denies other symptoms Treatments prior to arrival: other (both BP medications) Related Data Home Medications Medication Instructions Recorded Confirmed gabapentin 400 mg capsule 400 mg PO BEDTIME 01/01/23 01/01/23 insulin glargine 100 unit/mL (3 10 unit subcut QPM 01/01/23 01/01/23 mL) subcutaneous pen (Lantus Solostar U-100 Insulin) insulin lispro 100 unit/mL 1 sliding scale dose subcut 01/01/23 01/01/23 subcutaneous half-unit pen USEASDIRECTD (Humalog Cristian KwikPen (U-100)) lisinopril 10 mg tablet 10 mg PO DAILY 01/01/23 01/01/23 Previous Rx's Medication Instructions Recorded nitrofurantoin 100 mg PO Q12H 5 days #10 caps 04/05/21 monohydrate/macrocrystals 100 mg capsule (Macrobid) oxycodone 5 mg tablet 5 mg PO TID PRN pain #8 tabs 07/23/21 tamsulosin 0.4 mg capsule (Flomax) 0.4 mg PO DAILY #7 caps 07/23/21 tamsulosin 0.4 mg capsule 0.4 mg PO DAILY 7 days #7 caps 07/25/21 ondansetron 4 mg disintegrating 4 mg PO Q8H PRN nausea and 08/09/22 tablet vomiting #20 tabs B-complex with vitamin C 1 cap PO DAILY 30 days #30 caps 01/01/23 amlodipine 5 mg tablet 5 mg PO DAILY #30 tabs 03/22/23 Allergies Allergy/AdvReac Type Severity Reaction Status Date / Time No Known Allergies Allergy Verified 01/01/23 13:04 [No Known Allergies*] Review of Systems 2 Review of Systems: Constitutional : No Fever, No Chills, No Fatigue ENT/Mouth : No sore throat, No Rhinorrhea Eyes: No Eye Pain, No Swelling, No Redness Cardiovascular : No Chest Pain, No SOB, No Dyspnea on Exertion Respiratory : No Cough, No Sputum Gastrointestinal : No Nausea, No Vomiting, No Diarrhea, No abdominal Pain Genitourinary : No Dysuria, No Urinary Frequency, No Hematuria, Musculoskeletal : No joint pain, No Myalgias, No Joint Swelling Skin : No Skin Lesions, No rash Neuro : No Weakness, No Numbness, pos Dizziness, positive Headache Psych : No Anxiety/Panic, No Depression Heme/Lymph: No Bruising, No Bleeding,No Lymphadenopathy Endocrine : No Polyuria, No Polydipsia All other systems reviewed and are negative FORMERLY [facility], [facility]–1983 Past Medical History Attestation statement: The following information was validated with the patient. Source: old records reviewed Medical History Diabetes mellitus, type 2 Surgical History History of ankle surgery Family History Family History (Updated 01/01/23 @ 13:07 by ANNAMARIA Marmolejo) Father Cancer Mother Cancer Social History Social History Alcohol intake: never Patient Tobacco Use Status: Never used Tobacco Advance Directives: No Advance Directives Information Provided: Yes Physical Exam ED Vital Signs: Vital Signs - 24 hr 03/22/23 12:30 03/22/23 14:32 Temperature 97.0 F 98.3 F Pulse Rate 89 89 Respiratory Rate 20 18 Blood Pressure 136/88 137/88 Pulse Oximetry 96 98 Oxygen Delivery Method Room Air Room Air BMI result Body Mass Index 42.1 Appearance: Alert. Oriented X3. No acute distress. Eyes: Pupils equal, round and reactive to light. ENT: Pharynx normal. Neck: Normal inspection. Neck supple. CVS: Normal heart rate and rhythm. Pulses normal. Respiratory: No respiratory distress. Breath sounds normal. Abdomen: Soft and nontender. Skin: Skin warm and dry. Normal skin color. Normal skin turgor. Extremities: No lower extremity edema. No calf ttp Neuro: Oriented X 3. No motor deficit. No sensory deficit. normal gait Course Course Course Narrative: RME performed by Ashlee Mckeon PA-C. Patient is a 42 year old assigned male at presenting to the emergency department with a headache and dizziness. Patient has a history of HTN and is concerned his pressure is too high. Patient states that he took his medicine as prescribed. Labs, imaging, and swabs ordered. Patient placed back in the waiting room pending room availability and results. Medical Decision Making Medical Decision Making [facility] Narrative: 42 yo male with PMH of obesity, HTN, DM, ALEC here with elevated BP x 1 week and mild symptoms of headache and dizziness at times mostly in the AM. He has no focal weakness or numbness, no chest pain. Just increased his lisinopril to 20mg and started on amlodipine 2.5mg 2 days ago. He does not use his CPAP so this could be the cause of his AM symptoms. At thist vivian basic labs, given persistent HTN after 2 days of medications may increase his amlodipine to 5mg daily. Doubt end organ damage. Differential Diagnosis Differential Diagnoses: The differential diagnosis associated with the presentation includes HTN, poor compliance with CPAP Admission/Observation Consideration of admission/observation: Escalation of care including admission/observation considered BP stable, work up negative stable for DC Lab Data [facility] Lab Attestation statement: I reviewed the patient's lab results. 03/22/23 12:49 03/22/23 12:49 Labs: Lab Results 03/22/23 Range/Units 12:49 WBC 8.4 (4.8-10.8) X10*3/uL RBC 4.58 L (4.60-5.80) X10*6/uL Hgb 13.8 L (14.0-18.0) g/dl Hct 40.6 L (42.0-52.0) % MCV 88.6 (80.0-98.0) fL MCH 30.1 (27.0-33.0) pg MCHC 34.0 (31.0-36.0) g/dl RDW 12.3 (11.0-16.0) % Plt Count 302 (160-400) X10*3/uL MPV 10.7 (9.4-12.4) fL Immature Gran % (Auto) 1.4 H (0.0-0.4) % Neut % (Auto) 60.1 (45-73) % Lymph % (Auto) 25.3 (20-40) % [place] % (Auto) 8.0 (2-11) % Eos % (Auto) 4.2 H (0-4) % Baso % (Auto) 1.0 (0-2) % Lymph # (Auto) 2.1 (1.2-4.9) X10*3/uL [place] # (Auto) 0.7 (0.1-1.2) X10*3/uL Eos # (Auto) 0.4 (0.0-0.4) X10*3/uL Baso # (Auto) 0.1 (0.0-0.2) X10*3/uL Abs Immat Gran (auto) 0.12 H (0.00-0.03) X10*3/uL Absolute Neuts (auto) 5.0 (2.0-8.3) x10*3/uL Absolute Nucleated RBC 0.000 (0.0-0.012) X10*3/uL Nucleated RBC % (auto) 0.0 (0.0-0.2) /100WBC PT 11.0 L (11.1-13.3) SEC INR 0.9 (0.9-1.1) APTT 29.8 (26.0-36.4) SEC Sodium 137 (135-145) mmol/L Potassium 4.5 (3.3-5.1) mmol/L Chloride 102 (96-108) mmol/L Carbon Dioxide 28 (22-29) mmol/L Anion Gap 12 (12-20) BUN 13 (9-16) mg/dL Creatinine 0.87 (0.5-1.4) mg/dL Estim Creat Clear Calc 118.9 Estimated GFR > 60 Random Glucose 197 H (60-115) mg/dL Calcium 9.6 (8.4-10.2) mg/dL Magnesium 2.0 (1.6-2.6) mg/dL Total Bilirubin 0.5 (0.0-1.0) mg/dL AST 20 (5-37) U/L ALT 24 (0-40) U/L Alkaline Phosphatase 87 (39-117) U/L Troponin I High Sens < 2.7 (<3.5-35.0) ng/L Total Protein 8.0 (6.5-8.0) g/dL Albumin 4.3 (3.5-5.0) g/dL Influenza Type A (PCR) NEGATIVE (Negative) Influenza Type B (PCR) NEGATIVE (Negative) RSV RNA Qual (PCR) NEGATIVE (Negative) SARS-CoV-2 RNA (RT-PCR) NEGATIVE (Negative) Independent Interpretation I performed an independent interpretation of an: EKG, Plain X-Ray (normal ) and CT Scan (normal ) Interpretation: Rate: 90 Rhythm: NSR [place]: normal Normal P waves. Normal SAMANTHA. Normal QRS complex. ST T wave : normal no MELINDA qTC: normal prior studies: no acute ischemia The study has been interpreted contemporaneously by me. . Radiology Impression Discussion of test interpretation with radiology: I have reviewed the radiologist's reading. External Record Review External record reviewed: Office record Prescription Management I considered prescription management with: Other Chronic Conditions Patient?s care impacted by: Hypertension Discharge Plan Discharge Clinical Impression: HTN (hypertension) Qualifiers: Hypertension type: unspecified Qualified Code(s): I10 - Essential (primary) hypertension Patient Disposition: Home, Self-Care Instructions: Chronic Hypertension (ED) Additional Instructions: you need to talk to your doctor and follow up in the next 2 weeks about your CPAP. at this time start on amlodipine 5mg if you notice your blood pressure is still elevated tomorrow > 150/100. hold the amlodipine if your blood pressure is less than 100. return for weakness, numbness, dizziness, or any other concerns. Prescriptions: New amlodipine 5 mg tablet 5 mg PO DAILY Qty: 30 0RF No Action tamsulosin 0.4 mg capsule 0.4 mg PO DAILY 7 Days Qty: 7 0RF nitrofurantoin monohyd/m-cryst [Macrobid] 100 mg capsule 100 mg PO Q12H 5 Days Qty: 10 0RF Rx Instructions: must administer with a meal/food tamsulosin [Flomax] 0.4 mg capsule 0.4 mg PO DAILY Qty: 7 0RF oxycodone 5 mg tablet 5 mg PO TID PRN (Reason: pain) Qty: 8 0RF ondansetron 4 mg tablet,disintegrating 4 mg PO Q8H PRN (Reason: nausea and vomiting) Qty: 20 0RF gabapentin 400 mg capsule 400 mg PO BEDTIME insulin glargine [Lantus Solostar U-100 Insulin] 100 unit/mL (3 mL) insulin pen 10 unit subcut QPM insulin lispro [Humalog Cristian KwikPen U-100] 100 unit/mL insulin pen, half- unit 1 sliding scale dose subcut USEASDIRECTD lisinopril 10 mg tablet 10 mg PO DAILY B-complex with vitamin C Capsule 1 cap PO DAILY 30 Days Qty: 30 5RF Stand Alone Forms: Work/School Release
--- NOTE | 2023-03-22 12:31 | ECG_ITS ---
Test Reason : htn Blood Pressure : / mmHG Vent. Rate : 090 BPM Atrial Rate : 090 BPM P-R Int : 166 ms QRS Dur : 078 ms QT Int : 338 ms P-R-T Axes : 037 007 023 degrees QTc Int : 413 ms Normal sinus rhythm Normal ECG When compared to the previous EKG of No significant changes seen Referred By: Ashlee Mckeon Electronically Signed By:Fredo Kwok
[2023-03-22 12:55] LABS: MANUAL DIFF FLAG NO
[2023-03-22 13:00] LABS: Basophils Absolute Auto 0.1 X10*3/uL (0.0-0.2); Eosinophils Absolute Auto 0.4 X10*3/uL (0.0-0.4); Eosinophils Percent Auto 4.2 % (0-4); Hematocrit 40.6 % (42.0-52.0); Hemoglobin 13.8 g/dl (14.0-18.0); Imm Gran Abs Auto 0.12 X10*3/uL (0.00-0.03); Imm Gran Pct Auto 1.4 % (0.0-0.4); Lymphocytes Absolute Auto 2.1 X10*3/uL (1.2-4.9); Lymphocytes Percent Auto 25.3 % (20-40); Mean Corpuscular Hemoglobin 30.1 pg (27.0-33.0); Mean Corpuscular Volume 88.6 fL (80.0-98.0); Mean Platelet Volume 10.7 fL (9.4-12.4); Monocytes Absolute Auto 0.7 X10*3/uL (0.1-1.2); Neutrophils Percent Auto 60.1 % (45-73); Platelet Count 302 X10*3/uL (160-400); Red Blood Count 4.58 X10*6/uL (4.60-5.80); Red Cell Distribution Width 12.3 % (11.0-16.0); White Blood Count 8.4 X10*3/uL (4.8-10.8)
[2023-03-22 13:01] LABS: INTERNATIONAL NORM RATIO 0.9 (0.9-1.1)
[2023-03-22 13:03] LABS: Partial Thromboplastin Time 29.8 SEC (26.0-36.4)
[2023-03-22 13:10] LABS: Alanine Aminotransferase 24 U/L (0-40); Albumin Level 4.3 g/dL (3.5-5.0); Alkaline Phosphatase 87 U/L (39-117); Anion Gap 12 (12-20); Aspartate Amino Transferase 20 U/L (5-37); Bilirubin Total 0.5 mg/dL (0.0-1.0); Blood Urea Nitrogen 13 mg/dL (9-16); Calcium 9.6 mg/dL (8.4-10.2); Carbon Dioxide 28 mmol/L (22-29); Chloride 102 mmol/L (96-108); Creatinine Clr Calc Pharmacy 118.9; Estimated Glomerular Filt Rate > 60; Glucose Random 197 mg/dL (60-115); Potassium 4.5 mmol/L (3.3-5.1); Sodium 137 mmol/L (135-145)
[2023-03-22 13:18] LABS: Troponin-I High Sensitivity < 2.7 ng/L (<3.5-35.0)
[2023-03-22 13:34] LABS: Influenza A PCR NEGATIVE (Negative); Influenza B PCR NEGATIVE (Negative); Resp Syncy Virus RNA Qual PCR NEGATIVE (Negative); SARS COV2 PCR INHOUSE NEGATIVE (Negative)
[2023-03-22 14:32] VITALS: BP 137/88; PULSE 89; RESP 18; TEMP 36.8; O2SAT 98
== END 2023-03-22 14:56 | disposition home or self-care (01) ==
PROVIDERS: Physician Assistant Medical; Emergency Provider Emergency Medicine; PCP Family Medicine
DX: R51.9 Headache, unspecified (principal); R42 Dizziness and giddiness; I10 Essential (primary) hypertension; Z79.899 Other long term (current) drug therapy; Z20.822 Contact with and (suspected) exposure to COVID-19; Z20.828 Contact with and (suspected) exposure to other viral communicable diseases
CPT/HCPCS: 0241U; 70450; 71046; 80053; 83735; 84484; 85025; 85610; 85730; 93005; 99283; 99284

== ENCOUNTER → 2023-03-22 12:31 | Outpatient (BNV) | payer MEDICAID, SELFPAY | PROVIDERS: Emergency Provider Emergency Medicine; PCP Family Medicine; Visit Provider Internal Medicine Cardiovascular Disease | DX: I10 Essential (primary) hypertension (principal) | CPT/HCPCS: 93010 ==

== ENCOUNTER 2023-08-25 10:27 | Emergency (ER) | payer MEDICAID, SELFPAY ==
--- NOTE | ~2023-08-25 | CT_ITS ---
EXAMINATION: CT ANGIOGRAM HEAD CT ANGIOGRAM NECK CLINICAL INFORMATION: Reason for Exam diplopia with waking COMPARISON: CT head 03/22/2023 TECHNIQUE: Test bolus sequences followed by intravenous administration 70 mL of Omnipaque 350. Helical imaging was performed in the axial plane from the aortic arch to the skull vertex. Delayed postcontrast imaging of the head was also performed. The data was processed at the chemical engineering technologist's workstation for generation of MIP sequences. Angled MIPs and volume rendered reformatted images were also generated at an offline 3D workstation. Stenoses are assessed in accordance with Marshall et al. Quantification of Carotid Stenosis on CT Angiography. AJR 2006. 27(1):13-19. This CT examination was performed using dose optimization techniques as appropriate, variously including the following: *Automated exposure control *Adjustment of mA and/or kV according to patient size (this includes techniques or standardized protocols for targeted exams where dose is matched to indication/reason for exam; i.e. extremities or head) *Use of iterative reconstruction technique DLP: 2486 mGy-cm FINDINGS: CT HEAD: The ventricles and sulci are normal in size and configuration without significant volume loss or hydrocephalus. There is no abnormal attenuation within the brain parenchyma. No territorial loss of saldivar-white differentiation. No acute intracranial hemorrhage or extra-axial fluid collection. No mass lesion, significant mass effect, or herniation pattern. No pathologic intra-axial enhancement or regional oligemia. Enlargement of several bilateral extraocular muscles that may be seen in the setting of thyroid eye disease and can be correlated with thyroid function tests. Mild mucosal disease in the right greater than left maxillary sinuses with retention cyst on the left and bilateral sclerotic wall thickening on the basis of chronic sinusitis. No mastoid effusion. Osseous structures are intact. CTA HEAD: No hemodynamically significant stenosis or occlusion in the anterior or posterior circulation. Partially calcified atherosclerotic plaque of the bilateral supraclinoid internal carotid arteries contributes to moderate right and mild left supraclinoid ICA stenosis (image 386, series 10). No aneurysms and no high flow vascular malformations. Timing of the contrast bolus allows assessment of the major dural venous sinuses, which all opacify normally CTA NECK: Two vessel branching pattern of the arch with left common carotid artery arising from the brachiocephalic trunk. Origins of the great vessels are widely patent. Limited diagnostic assessment of the great vessels related to beam hardening artifact from adjacent venous contrast bolus. The common carotid arteries are widely patent. The carotid bifurcations and bilateral internal carotid arteries are widely patent. Partially retropharyngeal course of the proximal right cervical ICA. The vertebral arteries are codominant The vertebral artery ostia are widely patent. Both vertebral arteries are widely patent throughout their extracranial cervical course. CT NECK: Significant scattered periodontal disease associated with the maxillary and mandibular dentition with reactive osteitis of the surrounding alveoli. Mildly prominent bilateral level 2A and level 1B lymph nodes with preservation of the normal fatty evan, presumably reactive. Suggestion of mild thyromegaly. CT/CT angio head neck IMPRESSION: 1. No acute intracranial findings. 2. No proximal large vessel occlusion. No hemodynamically significant stenosis in the neck. Atherosclerosis contributes to moderate right and mild left supraclinoid ICA stenosis. No arterial dissection or intracranial saccular aneurysm. 3. Enlargement of several bilateral extraocular muscles that may be seen in the setting of thyroid eye disease and can be correlated with thyroid function tests. 4. Suggestion of mild thyromegaly. 5. Significant scattered periodontal disease associated with the maxillary and mandibular dentition with reactive osteitis of the surrounding alveoli; correlation with dental examination is advised.
[2023-08-25 10:44] VITALS: BP 134/79; PULSE 85; RESP 18; TEMP 36.1; O2SAT 97; BMI 44.1
--- NOTE | 2023-08-25 11:52 | ED.EYEPROB ---
HPI - Eye Problem General Chief complaint: Eye Problems Stated complaint: R eye pain Time Seen by Provider: 08/25/23 11:39 Source: patient Mode of arrival: ambulatory Limitations: no limitations History of Present Illness HPI Narrative: 42-year-old male who has history of insulin-dependent diabetes and hypertension who wears corrective lenses for distance presents to the ER with complaints bilateral double vision since yesterday with waking. patient reports that when he wears his corrective lenses he notices with both eyes open that the distance is double vision. He describes this as vertical double vision. When he covers each of his eye it resolves when both eyes are open the double vision continues. Reports the last few days has had bilateral eye soreness. 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 He denies any eye pain, eye itching, recent upper respiratory symptoms or allergy symptoms. He does see ophthalmology yearly at [facility] but does not know the name of his clinical documentation improvement specialist. He last saw them last spring. He denies any associated dizziness, headache, numbness, tingling, weakness of the upper lower extremities or face. Related Data Home Medications ?Medication ?Instructions ?Recorded ?Confirmed gabapentin 400 mg capsule 400 mg PO BEDTIME 01/01/23 01/01/23 insulin glargine 100 unit/mL (3 10 unit subcut QPM 01/01/23 01/01/23 mL) subcutaneous pen (Lantus Solostar U-100 Insulin) insulin lispro 100 unit/mL 1 sliding scale dose subcut 01/01/23 01/01/23 subcutaneous half-unit pen USEASDIRECTD (Humalog Cristian KwikPen (U-100)) lisinopril 10 mg tablet 10 mg PO DAILY 01/01/23 01/01/23 Previous Rx's ?Medication ?Instructions ?Recorded nitrofurantoin 100 mg PO Q12H 5 days #10 caps 04/05/21 monohydrate/macrocrystals 100 mg capsule (Macrobid) oxycodone 5 mg tablet 5 mg PO TID PRN pain #8 tabs 07/23/21 tamsulosin 0.4 mg capsule (Flomax) 0.4 mg PO DAILY #7 caps 07/23/21 tamsulosin 0.4 mg capsule 0.4 mg PO DAILY 7 days #7 caps 07/25/21 ondansetron 4 mg disintegrating 4 mg PO Q8H PRN nausea and 08/09/22 tablet vomiting #20 tabs amlodipine 5 mg tablet 5 mg PO DAILY #30 tabs 03/22/23 B-complex with vitamin C 1 cap PO DAILY 30 days #30 caps 07/30/23 Allergies Allergy/AdvReac Type Severity Reaction Status Date / Time No Known Allergies Allergy Verified 08/25/23 10:46 [No Known Allergies*] Review of Systems Review of Systems: Yes all other systems are reviewed and are negative Constitutional: Constitutional: Reports no additional constitutional complaints, Denies body ache(s), Denies chills, Denies fever(s), Denies headache(s) and Denies weakness Eyes: Eyes: Reports no additional eye complaints, Denies blurry vision, Denies change in vision, Reports diplopia, Reports eye discharge, Denies irritation, Denies eye pain, Reports requires corrective lenses, Denies seeing flashes and Denies photophobia ENT: Reports system reviewed and no additional complaints, except as documented, Denies dizziness, Denies headache(s), Denies nasal congestion, Denies nasal discharge and Denies neck pain Cardiovascular: Cardiovascular: Reports no additional cardiovascular complaints, Denies chest pain, Denies leg edema and Denies dyspnea Respiratory: Respiratory: Reports no additional respiratory complaints, Denies cough and Denies dyspnea Gastrointestinal: Gastrointestinal: Reports no additional gastrointestinal complaints, Denies abdominal pain, Denies diarrhea, Denies nausea and Denies vomiting Genitourinary: Genitourinary: Denies urinary incontinence Musculoskeletal: Musculoskeletal: Reports no additional musculoskeletal complaints, Denies back pain, Denies arthralgias, Denies joint swelling, Denies neck pain, Denies numbness and Denies tingling Integumentary/Breasts: Skin/Breast: Reports system reviewed and no additional complaints, except as docu and Denies rash Neurologic: Reports system reviewed and no additional complaints, except as documented, Denies Abnormal speech present, Denies dizziness, Denies headache(s), Denies numbness, Denies tingling and Denies weakness PMFSH Past Medical History Attestation statement: The following information was validated with the patient. Source: old records reviewed and nursing notes reviewed Medical History Diabetes mellitus, type 2 Surgical History History of ankle surgery Family History Family History Father Cancer Mother Cancer Social History Social History Alcohol intake: never Patient Tobacco Use Status: Never used Tobacco Advance Directives: No Advance Directives Information Provided: Yes Physical Exam Vital Signs: Vital Signs: Last Vital Signs Temp 97.3 F 08/25/23 14:48 Pulse 78 08/25/23 14:48 Resp 18 08/25/23 14:48 BP 128/72 08/25/23 14:48 Pulse Ox 98 08/25/23 14:48 O2 Del Method Room Air 08/25/23 14:48 BMI result Body Mass Index 44.1 Const: General: cooperative, healthy appearing, comfortable and no acute distress Orientation/consciousness: patient oriented x3 Limitations: no limitations HEENT: Head: Yes normal to inspection Ears: hearing grossly normal bilaterally and TM's normal bilaterally General nose exam: Normal external nose present Face and sinus: Yes normal facial exam Mouth: Normal oral and palatal mucosa present Throat: Yes posterior oropharynx normal, Yes tonsils normal and Yes uvula midline Eyes: Other: slight lag with eye movement right eye when moving medially, ?baseline R eye IOP 22 L eye IOP 25 General: appearance normal, both eyes and all related structures Periorbital: periorbital findings normal Eyelids: Yes eyelids normal Conjunctivae: conjunctivae normal Sclerae: sclerae normal Corneas: corneas normal Pupils: Equal, round and reactive pupils present EOM: Nystagmus present Direct Ophthalmoscopy: normal light reflex, no photophobia and No photophobia Neck: Neck: Yes normal visual inspection, Yes full ROM, Yes no lymphadenopathy and Yes no meningeal signs Chest: Chest palpation & inspection: normal inspection of the chest Resp: Effort & Inspection: normal respiratory effort Auscultation: clear to auscultation bilaterally Cardio: Rate: regular rate Rhythm: regular rhythm Peripheral pulses: Peripheral pulses 2+ throughout GI: Inspection: Yes normal to inspection Palpation (GI): Soft to palpation and nontender Auscultation: normal bowel sounds Back/Spine/Pelvis: Thoracic/Lumbar Spine: thoracic and lumbar spine normal to inspection Skin: General skin exam: no rashes or lesions noted Neuro: General: patient oriented x3, moves all extremities, no meningeal signs, no focal motor deficits and normal sensation to monofilament Cranial nerves: Yes CN's II-XII intact bilaterally, Yes Equal, round and reactive pupils present, Yes Normal facial strength present, Yes Midline tongue present and Yes Nystagmus present Cognition (Neuro): normal cognition Speech: No Abnormal speech present Gait exam (Neuro): Normal gait present Motor exam (neuro): 5/5 motor strength present throughout Sensory Exam: Normal double simultaneous stimulation for sensation Coordination: [id number] test normal, [id number] test normal and tandem gait normal Extrem: General: Yes normal to inspection Course Course Course Narrative: lab work is unremarkable with the exception of some mild hyperglycemia. CT head and neck are negative. EKG is nonischemic with no signs of AFib. Patient's IOPs are normal. He does have an outpatient clinical documentation improvement specialist who I recommend he follow-up with as well as his primary care doctor. Reviewed worrisome signs and symptoms when to return to the emergency room. Comfortable plan for discharge home. Medications Administered Discontinued Medications Generic Name Dose Route Start Last Admin Trade Name Freq PRN Reason Stop Dose Admin Iohexol 70 ml 08/25/23 13:41 08/25/23 13:41 Iohexol 350 Mg/Ml 100 Ml Infus..Btl IV 08/25/23 13:42 70 ml ONCE ONE Administration Tetracaine HCl 1 drop 08/25/23 12:01 08/25/23 12:14 Tetracaine Hcl/Pf 0.5% Oph Romelia 4 Ml Drops EYE-BOTH 08/25/23 12:02 1 drop ONCE ONE Administration Medical Decision Making Medical Decision Making [facility] Narrative: 42-year-old male who has history of insulin-dependent diabetes and hypertension who wears corrective lenses for distance presents to the ER with complaints bilateral double vision since yesterday with waking. patient reports that when he wears his corrective lenses he notices with both eyes open that the distance is double vision. He describes this as vertical double vision. When he covers each of his eye it resolves when both eyes are open the double vision continues. Reports the last few days has had bilateral eye soreness. 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 He denies any eye pain, eye itching, recent upper respiratory symptoms or allergy symptoms. He does see ophthalmology yearly at [facility] but does not know the name of his clinical documentation improvement specialist. He last saw them last spring. He denies any associated dizziness, headache, numbness, tingling, weakness of the upper lower extremities or face. -Binocular diplopia acute x 24 hr Has some difficulty with EOM right eye with slight lag to midline but patient reports he has a history of eye muscle weaknes on this side so unclear if acute on chronic Will need visual acuity, IOP check, labs, CTA Differential Diagnosis Differential Diagnoses: The differential diagnosis associated with the presentation includes cerebellar infarct, space-occupying lesion, intracranial hemorrhage, acute angle glaucoma Admission/Observation Consideration of admission/observation: Escalation of care including admission/observation considered patient with symptoms greater than 24 hours with no focal deficit with negative imaging. Discussed case with the attending physician Dr. Barnard. Patient will be discharged home with aspirin with recommendations to follow up with his outpatient provider Lab Data MDM Lab Attestation statement: I reviewed the patient's lab results. 08/25/23 12:31 08/25/23 12:31 Labs: Lab Results 08/25/23 Range/Units 12:31 WBC 8.1 (4.8-10.8) X10*3/uL RBC 4.27 L (4.60-5.80) X10*6/uL Hgb 12.9 L (14.0-18.0) g/dl Hct 38.2 L (42.0-52.0) % MCV 89.5 (80.0-98.0) fL MCH 30.2 (27.0-33.0) pg MCHC 33.8 (31.0-36.0) g/dl RDW 12.3 (11.0-16.0) % Plt Count 252 (160-400) X10*3/uL MPV 11.5 (9.4-12.4) fL Immature Gran % (Auto) 0.9 H (0.0-0.4) % Neut % (Auto) 62.3 (45-73) % Lymph % (Auto) 26.0 (20-40) % [place] % (Auto) 8.0 (2-11) % Eos % (Auto) 2.3 (0-4) % Baso % (Auto) 0.5 (0-2) % Lymph # (Auto) 2.1 (1.2-4.9) X10*3/uL [place] # (Auto) 0.7 (0.1-1.2) X10*3/uL Eos # (Auto) 0.2 (0.0-0.4) X10*3/uL Baso # (Auto) 0.0 (0.0-0.2) X10*3/uL Abs Immat Gran (auto) 0.07 H (0.00-0.03) X10*3/uL Absolute Neuts (auto) 5.0 (2.0-8.3) x10*3/uL Absolute Nucleated RBC 0.000 (0.0-0.012) X10*3/uL Nucleated RBC % (auto) 0.0 (0.0-0.2) /100WBC PT 11.6 (11.1-13.3) SEC INR 1.0 (0.9-1.1) Sodium 135 (135-145) mmol/L Potassium 4.2 (3.3-5.1) mmol/L Chloride 100 (96-108) mmol/L Carbon Dioxide 25 (22-29) mmol/L Anion Gap 14 (12-20) BUN 10 (9-16) mg/dL Creatinine 0.84 (0.5-1.4) mg/dL Estim Creat Clear Calc 126.5 Estimated GFR > 60 Random Glucose 349 H (60-115) mg/dL Calcium 9.3 (8.4-10.2) mg/dL Magnesium 1.8 (1.6-2.6) mg/dL Total Bilirubin 0.6 (0.0-1.0) mg/dL Direct Bilirubin 0.2 (0.0-0.5) mg/dL AST 16 (5-37) U/L ALT 20 (0-40) U/L Alkaline Phosphatase 85 (39-117) U/L Total Protein 7.2 (6.5-8.0) g/dL Albumin 3.8 (3.5-5.0) g/dL Independent Interpretation I performed an independent interpretation of an: EKG and CT Scan Interpretation: I independently reviewed the CT scan agree with Radiology report I independently reviewed the EKG which shows sinus rhythm with a rate of 78, normal [place], normal QRS, normal QT Radiology Impression Discussion of test interpretation with radiology: I have reviewed the radiologist's reading. Radiologist Impression: [address] [address] [address] Scan Report Signed Patient: Zeb Topete MR#: [id number] : 1980 Acct:[id number] Age/Sex: 42 / M ADM Date: 08/25/23 Loc: HO.ED Attending Dr: Ordering Physician: Galina Vyas NP Date of Service: 08/25/23 Procedure(s): CT angio head neck Accession Number(s): [id number] cc: Hanna Moyer MD; Galina Vyas NP~ EXAMINATION: CT ANGIOGRAM HEAD CT ANGIOGRAM NECK CLINICAL INFORMATION: Reason for Exam diplopia with waking COMPARISON: CT head 03/22/2023 TECHNIQUE: Test bolus sequences followed by intravenous administration 70 mL of Omnipaque 350. Helical imaging was performed in the axial plane from the aortic arch to the skull vertex. Delayed postcontrast imaging of the head was also performed. The data was processed at the dairy technologist's workstation for generation of MIP sequences. Angled MIPs and volume rendered reformatted images were also generated at an offline 3D workstation. Stenoses are assessed in accordance with Marshall et al. Quantification of Carotid Stenosis on CT Angiography. AJR 2006. 27(1):13-19. This CT examination was performed using dose optimization techniques as appropriate, variously including the following: *Automated exposure control *Adjustment of mA and/or kV according to patient size (this includes techniques or standardized protocols for targeted exams where dose is matched to indication/reason for exam; i.e. extremities or head) *Use of iterative reconstruction technique DLP: 2486 mGy-cm FINDINGS: CT HEAD: The ventricles and sulci are normal in size and configuration without significant volume loss or hydrocephalus. There is no abnormal attenuation within the brain parenchyma. No territorial loss of saldivar-white differentiation. No acute intracranial hemorrhage or extra-axial fluid collection. No mass lesion, significant mass effect, or herniation pattern. No pathologic intra-axial enhancement or regional oligemia. Enlargement of several bilateral extraocular muscles that may be seen in the setting of thyroid eye disease and can be correlated with thyroid function tests. Mild mucosal disease in the right greater than left maxillary sinuses with retention cyst on the left and bilateral sclerotic wall thickening on the basis of chronic sinusitis. No mastoid effusion. Osseous structures are intact. CTA HEAD: No hemodynamically significant stenosis or occlusion in the anterior or posterior circulation. Partially calcified atherosclerotic plaque of the bilateral supraclinoid internal carotid arteries contributes to moderate right and mild left supraclinoid ICA stenosis (image 386, series 10). No aneurysms and no high flow vascular malformations. Timing of the contrast bolus allows assessment of the major dural venous sinuses, which all opacify normally CTA NECK: Two vessel branching pattern of the arch with left common carotid artery arising from the brachiocephalic trunk. Origins of the great vessels are widely patent. Limited diagnostic assessment of the great vessels related to beam hardening artifact from adjacent venous contrast bolus. The common carotid arteries are widely patent. The carotid bifurcations and bilateral internal carotid arteries are widely patent. Partially retropharyngeal course of the proximal right cervical ICA. The vertebral arteries are codominant The vertebral artery ostia are widely patent. Both vertebral arteries are widely patent throughout their extracranial cervical course. CT NECK: Significant scattered periodontal disease associated with the maxillary and mandibular dentition with reactive osteitis of the surrounding alveoli. Mildly prominent bilateral level 2A and level 1B lymph nodes with preservation of the normal fatty evan, presumably reactive. Suggestion of mild thyromegaly. CT/CT angio head neck IMPRESSION: 1. No acute intracranial findings. 2. No proximal large vessel occlusion. No hemodynamically significant stenosis in the neck. Atherosclerosis contributes to moderate right and mild left supraclinoid ICA stenosis. No arterial dissection or intracranial saccular aneurysm. 3. Enlargement of several bilateral extraocular muscles that may be seen in the setting of thyroid eye disease and can be correlated with thyroid function tests. 4. Suggestion of mild thyromegaly. 5. Significant scattered periodontal disease associated with the maxillary and mandibular dentition with reactive osteitis of the surrounding alveoli; correlation with dental examination is advised. Discharge Plan Discharge Clinical Impression: Diplopia Patient Disposition: Home, Self-Care Instructions: Diplopia (ED) Additional Instructions: take a baby aspirin 81 mg daily your lab work, EKG and CT scan are reassuring. You may need additional testing done outpatient by her primary care doctor so please call them to follow-up. Please also follow-up with your clinical documentation improvement specialist Prescriptions: No Action tamsulosin 0.4 mg capsule 0.4 mg PO DAILY 7 Days Qty: 7 0RF B-complex with vitamin C Capsule 1 cap PO DAILY 30 Days Qty: 30 5RF nitrofurantoin monohyd/m-cryst [Macrobid] 100 mg capsule 100 mg PO Q12H 5 Days Qty: 10 0RF Rx Instructions: must administer with a meal/food tamsulosin [Flomax] 0.4 mg capsule 0.4 mg PO DAILY Qty: 7 0RF oxycodone 5 mg tablet 5 mg PO TID PRN (Reason: pain) Qty: 8 0RF ondansetron 4 mg tablet,disintegrating 4 mg PO Q8H PRN (Reason: nausea and vomiting) Qty: 20 0RF amlodipine 5 mg tablet 5 mg PO DAILY Qty: 30 0RF gabapentin 400 mg capsule 400 mg PO BEDTIME insulin glargine [Lantus Solostar U-100 Insulin] 100 unit/mL (3 mL) insulin pen 10 unit subcut QPM insulin lispro [Humalog Cristian KwikPen U-100] 100 unit/mL insulin pen, half-unit 1 sliding scale dose subcut USEASDIRECTD lisinopril 10 mg tablet 10 mg PO DAILY Referrals: Hanna Moyer MD [Primary Care Provider] - 1 week Interventions: ED Discharge Assessment Last Done: 08/25/23 14:48 Discharge Date/Time: 08/25/23 14:49 Print Language: Welsh
[2023-08-25] MEDS: Tetracaine HCl/PF 0.5% Oph Sol 4 ML DROPS 1 DROP EYE-BOTH (12:14)
[2023-08-25 12:37] LABS: MANUAL DIFF FLAG NO
[2023-08-25 12:38] LABS: Basophils Percent Auto 0.5 % (0-2); Eosinophils Absolute Auto 0.2 X10*3/uL (0.0-0.4); Eosinophils Percent Auto 2.3 % (0-4); Hematocrit 38.2 % (42.0-52.0); Hemoglobin 12.9 g/dl (14.0-18.0); Imm Gran Abs Auto 0.07 X10*3/uL (0.00-0.03); Imm Gran Pct Auto 0.9 % (0.0-0.4); Lymphocytes Absolute Auto 2.1 X10*3/uL (1.2-4.9); Mean Corpuscular HGB Conc 33.8 g/dl (31.0-36.0); Mean Corpuscular Hemoglobin 30.2 pg (27.0-33.0); Mean Corpuscular Volume 89.5 fL (80.0-98.0); Mean Platelet Volume 11.5 fL (9.4-12.4); Monocytes Absolute Auto 0.7 X10*3/uL (0.1-1.2); Neutrophils Percent Auto 62.3 % (45-73); Platelet Count 252 X10*3/uL (160-400); Red Blood Count 4.27 X10*6/uL (4.60-5.80); Red Cell Distribution Width 12.3 % (11.0-16.0); White Blood Count 8.1 X10*3/uL (4.8-10.8)
--- NOTE | 2023-08-25 12:39 | PC.NURSE ---
pt a&ox3, iv inserted, labs drawn, visual acuity performed, pt medicated by provider per orders, pt to have ct scan will continue to monitor
[2023-08-25 12:43] LABS: Prothrombin Time 11.6 SEC (11.1-13.3)
[2023-08-25 13:01] LABS: Alanine Aminotransferase 20 U/L (0-40); Albumin Level 3.8 g/dL (3.5-5.0); Alkaline Phosphatase 85 U/L (39-117); Anion Gap 14 (12-20); Aspartate Amino Transferase 16 U/L (5-37); Bilirubin Direct 0.2 mg/dL (0.0-0.5); Bilirubin Total 0.6 mg/dL (0.0-1.0); Blood Urea Nitrogen 10 mg/dL (9-16); Calcium 9.3 mg/dL (8.4-10.2); Carbon Dioxide 25 mmol/L (22-29); Chloride 100 mmol/L (96-108); Creatinine Clr Calc Pharmacy 126.5; Estimated Glomerular Filt Rate > 60; Glucose Random 349 mg/dL (60-115); Magnesium 1.8 mg/dL (1.6-2.6); Potassium 4.2 mmol/L (3.3-5.1); Sodium 135 mmol/L (135-145); Total Protein 7.2 g/dL (6.5-8.0)
--- NOTE | 2023-08-25 13:30 | PC.NURSE ---
pt going to CT scan.
[2023-08-25] MEDS: iohexoL 350 MG/ML 100 ML INFUS..BTL 70 ML IV (13:41)
--- NOTE | 2023-08-25 14:26 | ECG_ITS ---
Test Reason : QUESTION OF AFIB Blood Pressure : / mmHG Vent. Rate : 078 BPM Atrial Rate : 078 BPM P-R Int : 182 ms QRS Dur : 090 ms QT Int : 358 ms P-R-T Axes : 036 019 020 degrees QTc Int : 408 ms Normal sinus rhythm Normal ECG When compared with ECG of 22-MAR-2023 12:44, No significant change was found Referred By: Galina Garcia Electronically Signed By:Fredo Kwok
--- NOTE | 2023-08-25 14:46 | PC.NURSE ---
ekg performed, nsr
[2023-08-25 14:48] VITALS: BP 128/72; PULSE 78; RESP 18; TEMP 36.3; O2SAT 98
== END 2023-08-25 14:49 | disposition home or self-care (01) ==
PROVIDERS: Nurse Practitioner Family; Emergency Provider Emergency Medicine; PCP Family Medicine
DX: H53.2 Diplopia (principal); H57.11 Ocular pain, right eye; E11.9 Type 2 diabetes mellitus without complications; Z79.4 Long term (current) use of insulin
CPT/HCPCS: 36415; 70496; 70498; 80048; 80076; 83735; 85025; 85610; 93005; 99284; Q9967

== ENCOUNTER → 2023-08-25 14:26 | Outpatient (BNV) | payer MEDICAID, SELFPAY | PROVIDERS: Emergency Provider Emergency Medicine; PCP Family Medicine; Visit Provider Internal Medicine Cardiovascular Disease | DX: I10 Essential (primary) hypertension (principal) | CPT/HCPCS: 93010 ==

== ENCOUNTER 2023-08-28 10:53 | Outpatient (REF) | payer MEDICAID, SELFPAY ==
[2023-08-28 13:23] LABS: Estimated Average Glucose 266 mg/dL; Hemoglobin A1c % 10.9 % (<6.0)
[2023-08-28 13:47] LABS: Alanine Aminotransferase 20 U/L (0-40); Alkaline Phosphatase 80 U/L (39-117); Aspartate Amino Transferase 17 U/L (5-37); Bilirubin Direct 0.2 mg/dL (0.0-0.5); Bilirubin Total 0.6 mg/dL (0.0-1.0); Cholesterol 130 mg/dL (<200); HDL Cholesterol 38 mg/dL (>40); LDL Cholesterol Calculated 74 mg/dL (<100); Total Protein 7.8 g/dL (6.5-8.0); Triglycerides 91 mg/dL (<150)
[2023-08-28 14:04] LABS: TSH reflex Free T4 1.07 uIU/mL (0.32-4.0)
[2023-08-28 14:05] LABS: Folate 13.3 ng/mL (> or = 4.0); Vitamin B12 318 pg/mL (200-900)
[2023-08-28 14:48] LABS: Reflex LDLD? No
== END 2023-08-28 10:54 | disposition home or self-care (01) ==
LOC: HO.HHCL 10:53
PROVIDERS: Visit Provider Family Medicine
DX: E11.65 Type 2 diabetes mellitus with hyperglycemia (principal); Z79.4 Long term (current) use of insulin; I10 Essential (primary) hypertension; H53.2 Diplopia
CPT/HCPCS: 36415; 80061; 80076; 82607; 82746; 83036; 84443

== ENCOUNTER 2023-08-29 21:19 | Emergency (ER) | payer MEDICAID, SELFPAY ==
[2023-08-29 21:44] VITALS: BP 150/91; PULSE 89; RESP 20; TEMP 36.9; O2SAT 99; BMI 44.1
[2023-08-29 22:04] LABS: MANUAL DIFF FLAG NO
[2023-08-29 22:06] LABS: Basophils Absolute Auto 0.1 X10*3/uL (0.0-0.2); Basophils Percent Auto 0.4 % (0-2); Eosinophils Absolute Auto 0.2 X10*3/uL (0.0-0.4); Eosinophils Percent Auto 1.1 % (0-4); Hematocrit 39.3 % (42.0-52.0); Hemoglobin 13.5 g/dl (14.0-18.0); Imm Gran Abs Auto 0.06 X10*3/uL (0.00-0.03); Imm Gran Pct Auto 0.4 % (0.0-0.4); Lymphocytes Absolute Auto 1.6 X10*3/uL (1.2-4.9); Mean Corpuscular HGB Conc 34.4 g/dl (31.0-36.0); Mean Corpuscular Hemoglobin 30.6 pg (27.0-33.0); Mean Corpuscular Volume 89.1 fL (80.0-98.0); Mean Platelet Volume 11.3 fL (9.4-12.4); Monocytes Absolute Auto 1.3 X10*3/uL (0.1-1.2); Monocytes Percent Auto 9.3 % (2-11); Neutrophils Absolute Auto 10.4 x10*3/uL (2.0-8.3); Neutrophils Percent Auto 76.8 % (45-73); Platelet Count 262 X10*3/uL (160-400); Red Blood Count 4.41 X10*6/uL (4.60-5.80); Red Cell Distribution Width 12.1 % (11.0-16.0); White Blood Count 13.6 X10*3/uL (4.8-10.8)
[2023-08-29 22:07] LABS: Appearance Urine Clear; Color Urine Yellow; Glucose Urine UA >=1000 mg/dL (Negative); Leukocyte Esterase Urine Negative (Negative); Nitrite Urine Negative (Negative); Specific Gravity - Urine 1.025 (1.005-1.025); UMIC TRIGGER UACC YES; Urine Blood Moderate (2+) (Negative); Urine Ketones Trace mg/dL (Negative); Urine Protein Trace mg/dL (Neg-Trace)
[2023-08-29 22:17] LABS: Bacteria Urine None Seen (None Seen); Hyaline Casts Urine 0-2 /LPF (0-2); RBC Urine >20 /HPF (0-2); Squamous Epithelial Cell Urine 0-2 /HPF (0-2); WBC Urine 0-5 /HPF (0-5)
[2023-08-29 22:24] LABS: Alanine Aminotransferase 21 U/L (0-40); Albumin Level 4.1 g/dL (3.5-5.0); Alkaline Phosphatase 87 U/L (39-117); Anion Gap 14 (12-20); Aspartate Amino Transferase 21 U/L (5-37); Bilirubin Total 0.5 mg/dL (0.0-1.0); Blood Urea Nitrogen 13 mg/dL (9-16); Calcium 9.6 mg/dL (8.4-10.2); Carbon Dioxide 26 mmol/L (22-29); Chloride 101 mmol/L (96-108); Creatinine Clr Calc Pharmacy 92.3; Estimated Glomerular Filt Rate > 60; Glucose Random 224 mg/dL (60-115); Lipase 26 U/L (8-78); Potassium 4.4 mmol/L (3.3-5.1); Sodium 137 mmol/L (135-145); Total Protein 7.8 g/dL (6.5-8.0)
== END 2023-08-30 01:12 | disposition left against medical advice (07) ==
PROVIDERS: Emergency Provider Emergency Medicine; PCP Family Medicine
DX: R11.2 Nausea with vomiting, unspecified (principal); R68.83 Chills (without fever)
CPT/HCPCS: 36415; 80053; 81001; 83690; 85025; 99282; 99283

== ENCOUNTER 2023-09-04 15:37 | Outpatient (REF) | payer MEDICAID, SELFPAY ==
[2023-09-04 17:35] LABS: Free T4 (Free Thyroxine) 1.16 ng/dL (0.71-1.85); Thyroid Stimulating Hormone 0.67 uIU/mL (0.32-4.0)
== END 2023-09-04 15:38 | disposition home or self-care (01) ==
LOC: HO.HHCL 15:37
PROVIDERS: Visit Provider Family Medicine
DX: R93.0 Abnormal findings on diagnostic imaging of skull and head, not elsewhere classified (principal)
CPT/HCPCS: 36415; 84439; 84443

== ENCOUNTER 2023-11-18 11:32 | Outpatient (REF) | payer MEDICAID, SELFPAY ==
--- NOTE | ~2023-11-18 | XR_ITS ---
EXAMINATION: XR HIP, RIGHT CLINICAL INFORMATION: Right hip pain. COMPARISON: CT abdomen/pelvis dated 07/23/2021. TECHNIQUE: Two views of the right hip. FINDINGS: No acute fracture or dislocation. No joint space narrowing or marginal osteophytes. No osseous erosion. No evidence of avascular necrosis. No abnormal soft tissue calcification. XR/XR hip RT min 2V IMPRESSION: Unremarkable examination.
[2023-11-18 13:10] LABS: MANUAL DIFF FLAG NO
[2023-11-18 13:19] LABS: Basophils Absolute Auto 0.1 X10*3/uL (0.0-0.2); Basophils Percent Auto 0.8 % (0-2); Eosinophils Absolute Auto 0.2 X10*3/uL (0.0-0.4); Eosinophils Percent Auto 2.1 % (0-4); Hematocrit 41.9 % (42.0-52.0); Hemoglobin 14.1 g/dl (14.0-18.0); Imm Gran Abs Auto 0.12 X10*3/uL (0.00-0.03); Imm Gran Pct Auto 1.1 % (0.0-0.4); Lymphocytes Absolute Auto 2.8 X10*3/uL (1.2-4.9); Lymphocytes Percent Auto 26.3 % (20-40); Mean Corpuscular HGB Conc 33.7 g/dl (31.0-36.0); Mean Corpuscular Hemoglobin 29.7 pg (27.0-33.0); Mean Corpuscular Volume 88.2 fL (80.0-98.0); Mean Platelet Volume 11.8 fL (9.4-12.4); Monocytes Absolute Auto 0.9 X10*3/uL (0.1-1.2); Monocytes Percent Auto 8.6 % (2-11); Neutrophils Absolute Auto 6.4 x10*3/uL (2.0-8.3); Neutrophils Percent Auto 61.1 % (45-73); Platelet Count 273 X10*3/uL (160-400); Red Blood Count 4.75 X10*6/uL (4.60-5.80); Red Cell Distribution Width 12.6 % (11.0-16.0); White Blood Count 10.4 X10*3/uL (4.8-10.8)
[2023-11-18 13:46] LABS: Creatinine Urine 84.62 mg/dL; Microalbum/Creatinine Ratio Ur 23.6 ug/mg cr (<30)
[2023-11-18 13:48] LABS: TSH reflex Free T4 1.46 uIU/mL (0.32-4.0)
== END 2023-11-18 11:33 | disposition home or self-care (01) ==
LOC: HO.HHCL 11:32
PROVIDERS: Visit Provider Family Medicine
DX: E01.0 Iodine-deficiency related diffuse (endemic) goiter (principal); E11.65 Type 2 diabetes mellitus with hyperglycemia; Z79.4 Long term (current) use of insulin; R23.3 Spontaneous ecchymoses; M25.551 Pain in right hip; G89.29 Other chronic pain
CPT/HCPCS: 36415; 73502; 82043; 82570; 84443; 85025

== ENCOUNTER 2024-06-18 08:36 | Outpatient (REF) | payer MEDICAID, SELFPAY ==
--- OUTSIDE RECORDS SUMMARY | 2024-06-18 09:16 | XMS_ITS | Clinical Summary ---
Author Organization [employer] Address [address] [place] [address] Care Team Providers Care Manager Float Name Role Phone Hanna Moyer MD Primary Care Provider [phone] Valentín Anguiano PharmD Unavailable [phone] Allergies Active Allergy Reactions Criticality Noted Date Comments Exenatide 10/13/2015 Medications Blood Pressure Monitor kit Check blood pressure once daily and as needed 1 kit 07/11/19 23 Active Alcohol Swabs (Alcohol Prep) 70 % pads USE THREE TIMES DAILY AND NEEDED 100 each 11 10/12/19 23 Active Continuous Blood Gluc Transit Manager (FreeStyle Zulay 2 [place]) device Use as directed 1 each 1 01/14/20 23 Active simethicone (Mylicon) 125 MG chewable tablet CHEW 1 TABLET BY MOUTH 4 TIMES A DAY IN THE MORNING, AT NOON, IN THE EVENING, AND AT BEDTIME NEEDED FOR GAS 30 tablet 03/05/20 23 Active insulin pen needle (UltiCare Short Pen [place]) 31G X 8 mm miscIndications: Type 2 diabetes mellitus with hyperglycemia, with long-term current use of insulin (CMS/HCC) USE FOUR TIMES DAILY 100 each 11 08/29/19 24 Active insulin lispro (HumaLOG KWIKPEN) 100 UNIT/ML injectionIndicat ions:Type 2 diabetes mellitus with hyperglycemia, with long-term current use of insulin (CMS/HCC) Inject 20 units under the skin three times daily before meals 45 mL 3 10/23/19 24 Active insulin degludec (Tresiba) 100 UNIT/ML injectionIndicat ions:Type 2 diabetes mellitus with hyperglycemia, with long-term current use of insulin (CMS/HCC) Inject 56 units under the skin once daily 45 mL 3 10/23/19 24 Active glucose blood (FreeStyle Precision Kane Test) test stripIndications :Type 2 diabetes mellitus with hyperglycemia, with long-term current use of insulin ([facility]) USE DIRECTED TO TEST BLOOD SUGAR THREE TIMES DAILY 50 strip 11 12/10/19 24 Active atorvastatin (Lipitor) 10 MG tabletIndication s:Type 2 diabetes mellitus with hyperglycemia, with long-term current use of insulin (CMS/HCC) TAKE 1 TABLET BY MOUTH EVERY DAY 90 tablet 3 12/18/19 24 Active B Complex-C (b complex-vitamin c) tablet Take 1 tablet by mouth Once per day. 10/29/19 24 Active empagliflozin (Jardiance) 25 MGIndications:Ty pe 2 diabetes mellitus with hyperglycemia, with long-term current use of insulin ([facility]) Take 1 tablet (25 mg) by mouth Once per day. 30 tablet 01/01/20 24 025 Active Continuous Glucose Sensor (FreeStyle Zulay 2 Sensor) miscIndications: Type 2 diabetes mellitus with hyperglycemia, with long-term current use of insulin ([facility]) Use as directed 2 each 11 01/15/20 24 Active FreeStyle lancets 1 each by Other route 3 times daily. Check blood glucose 100 each 11 02/19/20 24 Active lisinopril 20 MG tabletIndication s:Primary hypertension TAKE 1 TABLET BY MOUTH EVERY MORNING 90 tablet 3 03/09/20 24 Active hydrocortisone 1 % cream Apply topically 2 times daily. 20 g 1 04/14/19 25 Active amLODIPine (Norvasc) 5 MG tabletIndication s:Primary hypertension TAKE 1 TABLET BY MOUTH EVERY DAY IN THE MORNING 90 tablet 1 05/12/19 25 Active gabapentin (Neurontin) 400 MG capsuleIndicatio ns:Type 2 diabetes mellitus with diabetic polyneuropathy, with long-term current use of insulin ([facility]) TAKE 1 CAPSULE BY MOUTH TWICE DAILY 60 capsule 06/03/19 25 Active gabapentin (Neurontin) 400 MG capsuleIndicatio ns:Type 2 diabetes mellitus with diabetic polyneuropathy, with long-term current use of insulin ([facility]) TAKE 1 CAPSULE BY MOUTH TWICE DAILY 60 capsule 03/31/20 24 025 Discontinued Active Problems Problem Noted Date Diagnosed Date Chronic left shoulder pain 04/20/2024 Rash 04/20/2024 Mood disorder 04/20/2024 Assessment & Plan (04/20/2024 6:47 AM EST): - PHQ9 score 14 and GAD7 score 13 - patient declines medications or behavioral health service referral Chronic right hip pain 11/18/2023 Assessment & Plan (11/18/2023 11:22 AM EDT): - Referred to PT - ordered XR to further evaluate Thyromegaly 11/18/2023 Assessment & Plan (11/18/2023 4:22 PM EDT): - check lab, including peroxidase antibody Petechiae 11/18/2023 Diplopia 09/26/2023 Assessment & Plan (11/18/2023 11:07 AM EDT): - seen by Dr. Kimball, [facility], for diplopia. 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 Diplopia is attributed to diabetes. - Dr. Kimball recommends further evaluation for Kori's thyroiditis. Neck pain 02/17/2023 Assessment & Plan (02/17/2023 1:33 PM EST): Pt w neck pain ,appears muscular in nature Pt is afebrile,there is no neck rigidity so concern for possible meningitis is less likely -supportive tx -warm compresses -tylenol prn -alarm signs and symptoms discussed in case worsening WADE and neck rigidity Restless leg syndrome 10/14/2022 Assessment & Plan (11/18/2023 4:19 PM EDT): - consider trial of ropinirole - continue judicious use of gabapentin since he has diabetic neuropathy Assessment & Plan (10/14/2022 5:46 PM EDT): - consider trial of ropinirole - continue judicious use of gabapentin since he has diabetic neuropathy Type 2 diabetes mellitus 10/10/2022 Assessment & Plan (04/20/2024 6:45 AM EST): - A1C 9.6% on 04/13/24, no improvement from 9.4% on 11/18/23 - Increase basal insulin: Tresiba 58 units - Continue bolus insulin: Humalog pen - Continue empagliflozin 25 mg daily - Treatment hx: previously on Metformin, but discontinued due to GI side effects. Pt has not used Lantus for more than 1 year. Tried GLP-1 agonist (Bydureon) but developed abdominal pain. Patient did not tolerate dulaglutide (Trulicity)'s side effect. - Continue working on lifestyle modifications - follow up in 3 mo or sooner prn Last eye exam: Nov 2022, [facility], Mild nonproliferative diabetic retinopathy without macular edema. Last foot exam: 11/18/23 Last microalbumin test: Jan 2023 Last lipid profile: 08/28/23 Last dental exam: overdue Assessment & Plan (11/18/2023 4:31 PM EDT): - A1C 9.4% on 11/18/23, about the same, but slightly increased. - Continue basal insulin: Tresiba 56 units - Continue bolus insulin: Humalog pen - Start empagliflozin 10 mg daily - Treatment hx: previously on Metformin, but discontinued due to GI side effects. Pt has not used Lantus for more than 1 year. Tried GLP-1 agonist (Bydureon) but developed abdominal pain. Pt would like to try dulaglutide. Patient did not tolerate dulaglutide (Trulicity)'s side effect. - Continue working on lifestyle modifications - follow up in 3 mo or sooner prn Last eye exam: Nov 2022, [facility], Mild nonproliferative diabetic retinopathy without macular edema. Last foot exam: 11/18/23 Last microalbumin test: Jan 2023 Last lipid profile: 08/28/23 Last dental exam: overdue Assessment & Plan (01/13/2023 6:39 AM EDT): - A1C 9.1% on 01/07/23, plateau in last 6 mo - Continue basal insulin: Lantus 20 units daily (pt is vague about medication dose; will ask PharmD to reconcile med) - Continue bolus insulin: Humalog pen 5-6 units with meals, U with regular meals, 4U with small meals. - Start dulaglutide 0.75 mg weekly - Treatment hx: previously on Metformin, but discontinued due to GI side effects. Pt has not used Lantus for more than 1 year. Tried GLP-1 agonist (Bydureon) but developed abdominal pain. Pt would like to try dulaglutide - Emphasized the importance of SMBG; will try CGM - Continue working on lifestyle modifications - upcoming appt with Pharm D for CDTM - follow up in 3 mo or sooner prn Last eye exam: 10/18/21 HUGH Mild nonproliferative diabetic retinopathy without macular edema. Last foot exam: 07/10/22 Last microalbumin test:04/19/21 UACR 4 Last lipid profile: 04/19/21 TC 145; TG 85; HDL 31; DL 96; vit D 9; UACR 4 Last dental exam: overdue Assessment & Plan (10/14/2022 5:44 PM EDT): - A1C 7.1% on 10/11/22, worsenedfrom 8.2% on 07/10/22, 6.4% on 07/31/21 - pt's insulin dosage is very different from our medication list. Will need glucometer data. - Continue basal insulin: Lantus 10 units daily (per pt 60 units) - Continue bolus insulin: Humalog pen 6U with regular meals, 4U with small meals. Pt is not using it currently - Treatment hx: previously on Metformin, but discontinued due to GI side effects. Pt has not used Lantus for more than 1 year. Tried GLP-1 agonist (Bydureon) but developed abdominal pain. - Emphasized the importance of SMBG; consider CGM - Continue working on lifestyle modifications Last eye exam: 10/18/21 HUGH Mild nonproliferative diabetic retinopathy without macular edema. Last foot exam: 07/10/22 Last microalbumin test:04/19/21 UACR 4 Last lipid profile: 04/19/21 TC 145; TG 85; HDL 31; DL 96; vit D 9; UACR 4 Last dental exam: overdue Diabetic polyneuropathy asso ciated with type 2 diabetes mellitus 07/22/2022 Assessment & Plan (11/18/2023 4:14 PM EDT): -Pt had NCT/EMG on 09/20/21. Showed early sensory motor neuropathy. No radiculopathy. -Currently prescribed gabapentin, consider tapering down -Optimize diabetes management Assessment & Plan (10/14/2022 5:41 PM EDT): -Pt had NCT/EMG on 09/20/21. Showed early sensory motor neuropathy. No radiculopathy. -Pt is prescribed Gabapentin but not effective. -Consider trial of Ropinirole for restless leg Assessment & Plan (07/22/2022 5:27 PM EDT): -Pt had NCT/EMG on 09/20/21. Showed early sensory motor neuropathy. No radiculopathy. -Pt is prescribed Gabapentin but not effective. History of tobacco use 07/22/2022 Assessment & Plan (11/18/2023 4:37 PM EDT): - previously smoking - quit in 2022 - continue his effort to remain a non-smoker. Assessment & Plan (01/13/2023 6:32 AM EDT): - previously smoking - quit few months ago - continue working on smoking cessation Assessment & Plan (10/14/2022 5:44 PM EDT): - continue working on smoking cessation Assessment & Plan (07/22/2022 5:38 PM EDT): - continue working on smoking cessation Poor dentition 07/22/2022 Assessment & Plan (07/22/2022 5:38 PM EDT): - encouraged to make appt with dentist ALEC (obstructive sleep apnea) 07/22/2022 Assessment & Plan (04/14/2024 4:27 AM EST): - Sleep study on 11/26/21 shows ALEC and periodic limb movement disorder - It recommended CPAP titration study, but pt has not had one yet. Will contact the office regarding to CPAP titration study - continue working towards healthy weight Assessment & Plan (11/18/2023 4:16 PM EDT): - Sleep study on 11/26/21 shows ALEC and periodic limb movement disorder - It recommended CPAP titration study, but pt has not had one yet. Will contact the office regarding to CPAP titration study - continue working towards healthy weight Assessment & Plan (10/14/2022 5:41 PM EDT): - Sleep study on 11/26/21 shows ALEC and periodic limb movement disorder - It recommended CPAP titration study, but pt has not had one yet. Will contact the office regarding to CPAP titration study - continue working towards healthy weight Assessment & Plan (07/22/2022 5:45 PM EDT): - Sleep study on 11/26/21 shows ALEC and periodic limb movement disorder - It recommended CPAP titration study, but pt has not had one yet. Will contact the office regarding to CPAP titration study - continue working towards healthy weight Mild nonproliferative diabet ic retinopathy of both eyes without macular edema associated with type 2 diabetes mellitus 07/10/2022 Hypertension 07/10/2022 Assessment & Plan (04/14/2024 4:27 AM EST): - Goal BP < 140/90 per JNC-8 and < 130/80 per ACC/AHA guideline (Treatment threshold >= 130/80 ) - Co-managed with our pharmacist, Valentín Anguiano, Pharm D. - Continue working on lifestyle modifications - Recommended self-monitoring BP. - Continue current medications: Lisinopril 20 mg daily and amlodipine 5 mg daily - Treat ALEC - Follow up in 3 mo Assessment & Plan (11/18/2023 4:20 PM EDT): - Goal BP < 140/90 per JNC-8 and < 130/80 per ACC/AHA guideline (Treatment threshold >= 130/80 ) - Co-managed with our pharmacist, Valentín Anguiano Pharm D. - Continue working on lifestyle modifications - Recommended self-monitoring BP. - Continue current medications: Lisinopril 20 mg daily and amlodipine 5 mg daily - Treat ALEC - Follow up in 3 mo Assessment & Plan (02/17/2023 1:37 PM EST): BP elevated today , states to be complaint w BP meds Likely reactive with current likely viral syndrome -check home BP every 3 days and bring to apt w PCP in 8 weeks Assessment & Plan (01/13/2023 6:31 AM EDT): - Goal BP < 140/90 per JNC-8 and < 130/80 per ACC/AHA guideline (Treatment threshold >= 130/80 ) - BP elevated today - Continue working on lifestyle modifications - Recommended self-monitoring BP. - Continue current medications: Lisinopril 10 mg daily - Treat ALEC - Follow up in 3-6 mo, sooner if any problem arises - Referred to [facility] Assessment & Plan (10/14/2022 5:49 PM EDT): - Goal BP < 140/90 per JNC-8 and < 130/80 per ACC/AHA guideline (Treatment threshold >= 130/80 ) - BP elevated today - Continue working on lifestyle modifications - Recommended self-monitoring BP. - Continue current medications: Lisinopril 10 mg daily - Treatment Hx: - Follow up in 3-6 mo, sooner if any problem arises - Referred to [facility] Assessment & Plan (07/22/2022 5:30 PM EDT): - Goal BP < 140/90 per JNC-8 and < 130/80 per ACC/AHA guideline (Treatment threshold >= 130/80 ) - BP elevated today - Continue working on lifestyle modifications - Recommended self-monitoring BP. - Continue current medications: Lisinopril 10 mg daily - Treatment Hx: - Follow up in 3-6 mo, sooner if any problem arises Kidney stone 07/03/2016 Assessment & Plan (11/18/2023 4:21 PM EDT): - s/p ESWL on 02/25/2019. -Last Kidney Stone on 07/23/21, pt was given Tamsulosin, Prednisone and Oxycodone. -Encouraged to continue adequate hydration, 2L / day Assessment & Plan (10/14/2022 5:42 PM EDT): - s/p ESWL on 02/25/2019. -Last Kidney Stone on 07/23/21, pt was given Tamsulosin, Prednisone and Oxycodone. -Encouraged to continue adequate hydration, 2L / day Assessment & Plan (07/22/2022 5:32 PM EDT): - s/p ESWL on 02/25/2019. -Last Kidney Stone on 07/23/21, pt was given Tamsulosin, Prednisone and Oxycodone. -Encouraged to continue adequate hydration, 2L / day Asthma 02/04/2013 Assessment & Plan (04/14/2024 4:27 AM EST): - albuterol HFA prn - continue remaining non-smoker Assessment & Plan (11/18/2023 4:19 PM EDT): - albuterol HFA prn - continue remaining non-smoker Assessment & Plan (01/13/2023 6:30 AM EDT): - albuterol HFA prn - continue remaining non-smoker Assessment & Plan (10/14/2022 5:42 PM EDT): - albuterol HFA prn - continue remaining non-smoker Anemia 12/31/2011 Assessment & Plan (11/18/2023 4:32 PM EDT): - very mild - periodic monitoring - optimize chronic disease management Hypertriglyceridemia 12/31/2011 Assessment & Plan (04/14/2024 4:29 AM EST): - currently prescribed atorvastatin 10 mg at bedtime - Last lipid profile 08/29/23 - Continue lifestyle modification. Assessment & Plan (11/18/2023 11:22 AM EDT): - Previously on gemfibrozil. Will not restart at this time. - Likely need statin in the future, but no strong indication at this time due to his age. - Last lipid profile 08/29/23 - Continue lifestyle modification. Assessment & Plan (01/13/2023 6:33 AM EDT): - Previously on gemfibrozil. Will not restart at this time. - Likely need statin in the future, but no strong indication at this time due to his age. - Continue lifestyle modification. Assessment & Plan (10/14/2022 5:44 PM EDT): - Previously on gemfibrozil. Will not restart at this time. - Likely need statin in the future, but no strong indication for his age. - Continue lifestyle modification. Assessment & Plan (07/22/2022 5:36 PM EDT): - Previously on gemfibrozil. Will not restart at this time. - Likely need statin in the future, but no strong indication for his age. - Continue lifestyle modification. Obesity 12/31/2011 Resolved Problems Problem Noted Date Diagnosed Date Resolved Date Gastroenteritis 02/17/2023 11/18/2023 Assessment & Plan (02/17/2023 1:32 PM EST): Pt with 1 day of N/V/D and abd pain but improving since this morning abd exam is benign Likely viral gastroenteritis , Here COVID/Flu neg -supportive tx -hydration -zofran prn ,simethicone prn -alarm signs and symptoms discussed Irritant hand dermatitis 07/22/202203/2024 Assessment & Plan (07/22/2022 5:50 PM EDT): - avoid prolonged excessive moisture - take off gloves periodically to aerate hands - apply hydrocortisone cream Type 2 diabetes mellitus wit h diabetic polyneuropathy, without long-term current use of insulin 10/13/2015 11/18/2023 Assessment & Plan (01/13/2023 6:29 AM EDT): Continue gabapentin Improve diabetes management Assessment & Plan (10/14/2022 5:43 PM EDT): - A1C 7.1% on 10/11/22, worsenedfrom 8.2% on 07/10/22, 6.4% on 07/31/21 - pt's insulin dosage is very different from our medication list. Will need glucometer data. - Continue basal insulin: Lantus 10 units daily (per pt 60 units) - Continue bolus insulin: Humalog pen 6U with regular meals, 4U with small meals. Pt is not using it currently - Treatment hx: previously on Metformin, but discontinued due to GI side effects. Pt has not used Lantus for more than 1 year. Tried GLP-1 agonist (Bydureon) but developed abdominal pain. - Emphasized the importance of SMBG; consider CGM - Continue working on lifestyle modifications Last eye exam: 10/18/21 HUGH Mild nonproliferative diabetic retinopathy without macular edema. Last foot exam: 07/10/22 Last microalbumin test:04/19/21 UACR 4 Last lipid profile: 04/19/21 TC 145; TG 85; HDL 31; DL 96; vit D 9; UACR 4 Last dental exam: overdue Assessment & Plan (07/22/2022 5:27 PM EDT): - A1c 8.2% on 07/10/22 today, worsened from 6.4% on 07/31/21 - Continue basal insulin: Lantus 10 units daily (switch to pen) - Continue bolus insulin: Humalog pen 6U with regular meals, 4U with small meals. - Treatment hx: previously on Metformin, but discontinued due to GI side effects. Pt has not used Lantus for more than 1 year. Tried GLP-1 agonist (Bydureon) but developed abdominal pain. - Emphasized the importance of SMBG; consider CGM - Continue working on lifestyle modifications Last eye exam: 10/18/21 HUGH Mild nonproliferative diabetic retinopathy without macular edema. 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 Orders 06/03/2024 Refill [facility] [address] [place], [place] [phone] Hanna Moyer MD Type 2 diabetes mellitus with diabetic polyneuropathy, with long-term current use of insulin ([facility]) 05/11/2024 Refill [facility] [address] [place] [id number] Hanna Moyer MD Primary hypertension 04/14/2024 11:30 AM EST Office Visit [address] [id number] Hanna Moyer MD ALEC (obstructive sleep apnea) (Primary Dx); Mild intermittent asthma without complication; Primary hypertension; Type 2 diabetes mellitus with hyperglycemia, with long-term current use of insulin ([facility]); Mild nonproliferative diabetic retinopathy of both eyes without macular edema associated with type 2 diabetes mellitus ([facility]); Class 3 severe obesity due to excess calories with serious comorbidity and body mass index (BMI) of 40.0 to 44.9 in adult ([facility]); Diabetic polyneuropathy associated with type 2 diabetes mellitus ([facility]); Hypertriglyceridemia; Encounter for immunization; Chronic left shoulder pain; Rash; Mood disorder ([facility]); Dietary counseling; Exercise counseling 04/14/[address] [address] Hanna Moyer MD 04/14/2024 Travel 04/13/2024 Telephone [facility] [address] [place] [id number] Rosy Bowens MA chart prep 03/30/2024 10:30 AM EST Telemedicine [address] [address] Valentín Anguiano, LeannD Type 2 diabetes mellitus with hyperglycemia, with long-term current use of insulin ([facility]) (Primary Dx); Primary hypertension 03/30/2024 Refill [facility] [address], [place] [phone] Lisa Guerrero MD Type 2 diabetes mellitus with diabetic polyneuropathy, with long-term current use of insulin ([facility]) from Last 3 Months Immunizations Name Administration Dates Next Due Hep B, adult 03/30/2019,11/15/2016,10/13/2015 Influenza Injectable Quadriv alant Preservative Free IIV4 MDCK 01/07/2023 Influenza injectable quadriv alent preservative free 03/27/2016 Influenza, IIV3, injectable 02/18/2014, 2,01/02/2010 Influenza, Split (incl. dominique fied surface antigen) 01/15/2013,12/31/2011 Influenza, seasonal, injecta ble, preservative free 04/14/2024 Pfizer Covid-19 Vaccine 12+ 04/14/2024, Pneumococcal Conjugate PCV 20 07/10/2022 Pneumococcal Polysaccharide PPSV23 06/21/2011 Td (adult), 5 Lf tetanus tox oid, preservative free, adsorbed 11/01/2012 Tdap 07/31/2021,01/02/2010 Family History Medical History Relation Name Comments Kidney disease Father Liver cancer Father Diabetes Maternal Grandmother Diabetes Mother Stomach cancer Mother Relation Name Status Comments Father Maternal Grandmother Mother Social History Tobacco Use Types Packs/Day Years Used Date Smoking Tobacco: Former Cigarettes Q uit: 12/31/2022 Passive Smoke Exposure: Past Smokeless Tobacco: Never Alcohol Use Standard Drinks/Week Comments Never 0 (1 standard drink = 0.6 oz pur e alcohol) Depression Answer Date Recorded Patient Health Questionnaire-9 Score 14 04/14/2024 Patient Health Questionnaire-9 Score 14 04/14/2024 Last PHQ-9: Questionnaire Data Not on file 0 04/14/2024 Housing Stability Answer Date Recorded What is your housing situation today? I have kamini daniels 11/05/[address] you li ve. Do you have problems with any of the following? None of the above;Pests such as bugs, ants, or mice 11/05/2023 Food Insecurity Answer Date Recorded Within the past 12 months, y ou worried that your food would run out before you got money to buy more: Sometimes True 2023 Within the past 12 months,th e food you bought just didn't last and you didn't have enough money to get more: Sometimes True 11/05/2023 Transportation Answer Date Recorded In the past 12 months, has l ack of transportation kept you from medical appts, meetings, work or from getting things needed for daily living? No 01/23/2023 Utilities Answer Date Recorded In the past 12 months, has t he electric, gas, oil or water company threatened to shut off services in your home? No 01/23/2023 Depression Answer Date Recorded Patient Health Questionnaire-2 Score 5 04/14/2024 Internet Access Answer Date Recorded Internet Access Q1 Yes 12/08/2023 Internet Access Q2 Not on file 12/08/2023 Sex and Gender Information Value Date Recorded Sex Assigned at Male 02/05/2022 10:14 AM EDT Legal Sex Male 10:14 AM EDT Gender Identity Male 02/05/2022 10:14 AM EDT Sexual Orientation Don't know 02/05/2022 10 :14 AM EDT Last Filed Vital Signs Vital Sign Reading Time Taken Comments Blood Pressure 123/80 04/14/2024 11:50 AM EST Pulse 93 04/14/2024 11:50 AM EST Temperature 35.6 ??C (96.1 ??F) 04/14/2024 11:[address] Respiratory Rate 19 04/14/2024 11:50 AM EST Oxygen Saturation 96% 04/14/2024 11:50 AM EST Inhaled Oxygen Concentration - - Weight 112 kg (247 lb 3.2 oz) 04/14/2024 11:50 A M EST Height 159.1 cm (5' 2.65 ) 04/14/2024 11:[address] Body Mass Index 44.28 04/14/2024 11:50 AM EST Plan of Treatment Upcoming Encounters Date Type Department Care Team (Late st Contact Info) Description 07/30/2024 10:15 AM EDT Office Visit [facility] MEDICINE [address] [place] [address] Hanna Moyer MD [address] [place] [address] Health Maintenance Due Date Last Done Comments Family Planning (PISQ) 1997 Diabetes: Hemoglobin A1C 07/13/2024 025, 11/19/2023, 08/28/2023, Additional history exists Lipid Panel 08/27/2024 08/28/2023, 10/0 05/2022, 04/19/2021 Eye Exam 09/03/2024 09/04/2023, 08/07, 09/04/2023, Additional history exists Depression Monitoring (PHQ-9) 10/12/2024 04/14/2024, 04/14/2024 SDOH Screening 11/04/2024 11/05/2023 Diabetes: Foot Exam 11/17/2024 11/18/2023, 11/18/2023, 11/18/2023, Additional history exists Diabetes: Urine Protein Screening 11/17/2024 11/18/2023, 01/07/2023, 04/19/2021 Alcohol/Substance Use Screening 04/14/2025 04/14/2024 Depression Screening 04/14/2025 04/14/2024, 04/14/19 Tobacco Screening 04/20/2025 04/20/2024 DTaP/Tdap/Td Vaccines (4 - Td or Tdap) 08/01/2031 07/31/2021, 11/01/2012, 01/02/2010 Zoster Vaccines (1 of 2) 2032 RSV Patients and Patients Aged 60 years or older (1 - 1-dose 75+ series) 2057 Hepatitis B Vaccines Completed 03/30/2019, 11/15/2016, 10/13/2015 HIV Screening Completed 04/19/2021 Pneumococcal Vaccine: Pediatrics (0 to 5 Years) and At-Risk Patients (6 to 49) Years) Completed 07/10/2022, 06/21/2011 Hepatitis C Screening Completed 01/07/2023, 022 COVID-19 Vaccine Completed 04/14/2024, 05/2022, 01/26/2022, Additional history exists Influenza Vaccine Completed 04/14/2024, , 03/27/2016, Additional history exists HIB Vaccines Aged Out No longer eligi ble based on patient's age to complete this topic HPV Vaccines Aged Out No longer eligi ble based on patient's age to complete this topic Hepatitis A Vaccines Aged Out No long er eligible based on patient's age to complete this topic IPV Vaccines Aged Out No longer eligi ble based on patient's age to complete this topic Meningococcal Vaccine Aged Out No shant ron eligible based on patient's age to complete this topic RSV under 20 months Aged Out No longe r eligible based on patient's age to complete this topic Rotavirus Vaccines Aged Out No longer eligible based on patient's age to complete this topic Goals Goal Patient Goal Type Associated Problems Recent Progress Patient-Stated? Author Blood Pressure < 140/90 Blood Pressure 123/80(2024 11:50 AM EST) No Valentín Anguiano PharmD Hemoglobin A1c < 7 Result Component 9.6( 11:53 AM EST) No Valentín Anguiano PharmD Procedures Procedure Name Priority Date/Time Associated Diagnosis Comments POCT GLUCOSE Routine 04/14/2024 11:54 AM EST Type 2 diabetes mellitus with hyperglycemia, with long-term current use of insulin ([facility]) POCT GLYCOSYLATED HEMOGLOBIN (HGB A1C) Routine 04/14/2024 11:53 AM EST Type 2 diabetes mellitus with hyperglycemia, with long-term current use of insulin ([facility]) ALBUMIN, RANDOM URINE W/CREATININE Routine 11/18/2023 11:34 AM EDT Type 2 diabetes mellitus with hyperglycemia, with long-term current use of insulin ([facility]) Petechiae LIPID PANEL, STANDARD Routine 08/28/2023 10:55 AM EDT HEPATITIS C AB W/REFL TO HCV RNA, QN, PCR Routine 01/07/2023 11:35 AM EDT Type 2 diabetes mellitus with diabetic polyneuropathy, with long-term current use of insulin ([facility]) HIV 1/2 ANTIGEN/ANTIBODY, FOURTH GENERATION W/RFL Routine 04/19/2021 9:19 AM EST from Last 3 Months or Most Recently Relevant to Health Maintenance Results * POCT glucose manually resulted (04/14/2024 11:54 AM EST) Glucose Blood, POC 194 60 - 200 mg/dL QC Media Lot # [id number] Lot# Expiration Date [id number] Blood Capillary blood specimen / Unknown 04/14/2024 11:54 AM EST Hanna Moyer MD POINT OF CARE TEST ENTER/EDIT OR DERABLES Final Result * (ABNORMAL) POCT glycosylated hemoglobin (Hgb A1c) (04/14/2024 11:53 AM EST) Hemoglobin A1C 9.6(A) 4.0 - 6.0 % QC Media Lot # [id number] Lot# Expiration Date ,827 Blood Capillary blood specimen / Unknown 04/14/2024 11:53 AM EST Hanna Moyer MD POINT OF CARE TEST ENTER/EDIT OR DERABLES Final Result * Albumin, Random Urine W/Creatinine (11/18/2023 11:34 AM EDT) Creatinine, Urine 84.62 mg/dL [facility] Microalbumin Urine 20.0 mg/L [facility] Microalbum Creatinine Ratio Ur 23.6 <30 ug/mg cr [facility] Comment:Albumin/Creatinine R atio Reference Ranges: Normal: < 30 ug/mg creatinine Microalbuminuria: 30 - 300 ug/mg creatinineClinical Albuminuria: > 300 ug/mg creatinine Urine 11/18/2023 11:3 4 AM EDT 11/18/2023 12:57 PM EDT Hanna Moyer MD LAB URINE ORDERABLES Final Resul t [facility] [address] [place] [address] [phone] * (ABNORMAL) Lipid Panel, Standard (08/28/2023 10:55 AM EDT) Triglycerides 91 <150 mg/dL [facility] Comment:Desirable Triglyceri de: less than 150 mg/dLBorderline High Triglyceride 150-199 mg/dLHigh Triglyceride: 200-499 mg/dLVery High Triglyceride: greater than or equal to 5OO mg/dL Cholesterol 130 <200 mg/dL [facility] Comment:Desirable Cholestero l: less than 200 mg/dLBorderline High Cholesterol: 200-239 mg/dLHigh Cholesterol: greater than 239 mg/dL LDL Cholesterol Calculated 74 <100 mg/dL [facility] Comment:Desirable LDL: less than 100 mg/dLNear Optimal/Above Optimal LDL: 110- 129 mg/dLBorderline High LDL: 130-159 mg/dLHigh LDL: 160-189 mg/dLVery High LDL: greater than or equal to 190 mg/dL HDL Cholesterol 38(L) >40 mg/dL [facility] Comment:Desirable HDL: great er than 40 mg/dL Note: This HDL assay may give artificially low results in patients with liver disease. 08/28/2023 10:5 5 AM EDT 08/28/2023 1:06 PM EDT Hanna Moyer MD LAB BLOOD ORDERABLES Final Resul t Performing Organization Address City/[facility] Co de Phone Number [facility] [address] [place] [phone] * Hepatitis C Antibody with Reflex to HCV, RNA, Quantitative, Real-Time PCR (01/07/2023 11:35 AM EDT) Hepatitis C Antibody Nonreactive Nonreactive [facility] Comment:Antibodies to HCV no t detected; does not exclude early acuteHCV infection. Blood Venous blood specimen / Unknown 01/07/2023 11:35 AM EDT 01/07/2023 1:12 PM EDT Hanna Moyer MD LAB BLOOD ORDERABLES Final Resul t Performing Organization Address [facility]/ZIP Co de Phone Number [facility] [address] [place] [phone] * HIV 1/2 ANTIGEN/ANTIBODY,FOURTH GENERATION W/RFL (04/19/2021 9:19 AM EST) HIV-1/2 ANTIGEN AND ANTIBODIES, 4TH GENERATION W/ REFLEX NON-REACT BRIGETTE NON-REACT BRIGETTE [facility] Comment: HIV-1 antigen and HIV-1/HIV-2 antibodies were not detected. There is no laboratory evidence of HIV infection. ?? PLEASE NOTE: This information has been disclosed to you from records whose confidentiality may be protected by state law. ??If your state requires such protection, then the state law prohibits you from making any further disclosure of the information without the specific written consent of the person to whom it pertains, or as otherwise permitted by law. A general authorization for the release of medical or other information is NOT sufficient for this purpose. ? For additional information please refer to http://education.[employer]/faq/HGT721 (This link is being provided for informational/ educational purposes only.) ? The performance of this assay has not been clinically validated in patients less than 2 years old. ?? 04/19/2021 9:19 AM EST us Hanna Moyer MD LAB BLOOD ORDERABLES Final Resul t [facility] [address] from Last 3 Months or Most Recently Relevant to Health Maintenance Insurance [facility] C3 Care Teams Manager Float Relationship Specialty Start Date End Date Hanna Moyer MD [address] [place] [address] PCP - General Family Medicine 10/08/11 Valentín Anguiano, PharmD [address] [place] [address] Pharmacist Internal Medicine 01/18/23
--- OUTSIDE RECORDS SUMMARY | 2024-06-18 09:16 | XMS_ITS | Encounter Summary ---
Author Organization [employer] Address [address] [facility] 7t [place] [address] Care Team Providers Care Pharmacy Ancillary Name Role Phone Hanna Moyer MD Primary Care Provider [phone] Valentín Anguiano PharmD Unavailable [phone] Reason for Visit * Reason Comments Med Refill Encounter Details Date Type Department Care Team (Late st Contact Info) Description 06/03/2024 Refill [facility] [address] [place], [place] [phone] Hanna Moyer MD [address] [place], [place] [phone] Type 2 diabetes mellitus with diabetic polyneuropathy, with long-term current use of insulin ([facility]) Social History Tobacco Use Types Packs/Day Years [...] Don't know 02/05/2022 10 :14 AM EDT documented as of this encounter Plan of Treatment Upcoming Encounters Date Type Department Care Team (Late st Contact Info) Description 07/30/2024 10:15 AM EDT Office Visit [facility] MEDICINE [address] [place] [address] Hanna Moyer MD [address] [place] [address] documented as of this encounter Goals Goal Patient Goal Type Associated Problems Recent Progress Patient-Stated? Author Blood Pressure < 140/90 Blood Pressure 123/80(2024 11:50 AM EST) No Valentín Anguiano, Sean Hemoglobin A1c < 7 Result Component 9.6( 11:53 AM EST) No Valentín Anguiano PharmD documented as of this encounter Visit Diagnoses Diagnosis Type 2 diabetes mellitus with diabetic polyneuropathy, with long-term current use of insulin ([facility]) documented in this encounter Additional Health Concerns Assessment Noted Time PHQ-9 Depression Total Score: 14 025 12:01 PM EST documented as of this encounter Care Teams Pharmacy Ancillary Relationship Specialty Start Date End Date Hanna Moyer MD [address] [place] [address] PCP - General Family Medicine 10/08/11 Valentín Anguiano, PharmD [address] [place] [phone] Pharmacist Internal Medicine 01/18/23 documented as of this encounter
--- OUTSIDE RECORDS SUMMARY | 2024-06-18 09:16 | XMS_ITS | Encounter Summary ---
Author Organization [employer] Address [address] [facility] 7t [place] [address] Care Team Providers Care City Supervisor Name Role Phone Hanna Moyer MD Primary Care Provider [phone] Valentín Anguiano PharmD Unavailable [phone] Reason for Visit * Reason Onset Date Comments Lab Orders 06/17/2024 Encounter Details Date Type Department Care Team ([facility] st Contact Info) Description 06/17/2024 Telephone [facility] MEDICINE [address] [place] [address] Nallely Alfredo RN [address] [place] [address] Lab Orders Social History Tobacco Use Types Packs/Day Years [...] AM EDT documented as of this encounter Miscellaneous Notes * Telephone Encounter - Nandini Rodriguez LPN - 06/17/2024 10:19 AM EDT Contacted patient and made him aware of pended labs. Patient stated he will go to the lab at [facility] on06/18/24. Will await results. * Telephone Encounter - Nallely Alfredo RN - 06/17/2024 10:10 AM EDT Incoming call from Nandini in form's department stating pt needs titers for paperwork they have. Needs MMR, varicella, and t spot. Ordered. documented in this encounter Plan of Treatment Upcoming Encounters Date Type Department Care Team (Late st Contact Info) Description 07/30/2024 10:15 AM EDT Office Visit [facility] MEDICINE [address] [place] [address] Hanna Moyer MD [address] [place] [address] Scheduled Orders Name Type Priority Associated Diagnoses Orde r Schedule Measles, Mumps, and Rubella (MMR) Antibodies??(IgG) Panel, Immune Status Lab Routine Immunity status testing Expected: 06/17/2024 (Approximate), Expires: 06/17/2025 Varicella Zoster Antibody, IgG Lab Routine Immunity status testing Expected: 06/17/2024 (Approximate), Expires: 06/17/2025 T-SPOT??.TB Lab Routine Immunity status testing Expected: 06/17/2024 (Approximate), Expires: 06/17/2025 documented as of this encounter Goals Goal Patient Goal Type Associated Problems Recent Progress Patient-Stated? Author Blood Pressure < 140/90 Blood Pressure 123/80(2024 11:50 AM EST) No Valentín Anguiano, Sean Hemoglobin A1c < 7 Result Component 9.6( 11:53 AM EST) No Valentín Anguiano, Sean documented as of this encounter Visit Diagnoses Diagnosis Immunity status testing Antibody response examination documented in this encounter Additional Health Concerns Assessment Noted Time PHQ-9 Depression Total Score: 14 025 12:01 PM EST documented as of this encounter Care Teams City Supervisor Relationship Specialty Start Date End Date Hanna Moyer MD [address] [place] [address] PCP - General Family Medicine 10/08/11 Valentín Anguiano, LeannD [address] [place] [address] Pharmacist Internal Medicine 01/18/23 documented as of this encounter
--- OUTSIDE RECORDS SUMMARY | 2024-06-18 09:17 | XMS_ITS | Encounter Summary ---
Author Organization [employer] Address [address] [facility] 7t [place] [address] Care Team Providers Care Clinical Orthoptist Name Role Phone Hanna Moyer MD Primary Care Provider [phone] Valentín Anguiano PharmD Unavailable [phone] Encounter Details Date Type Department Care Team (Late st Contact Info) Description 08/26/2023 Orders Only [facility] MEDICINE [address] [place], [place] [phone] Hanna Moyer MD [address] [place], [place] [phone] Primary hypertension (Primary Dx); Type 2 diabetes mellitus with hyperglycemia, with long-term current use of insulin ([facility]); Diplopia Social History Tobacco Use Types Packs/Day Years Used Date Smoking Tobacco: Former Cigarettes Q uit: 12/31/2022 Passive Smoke Exposure: Current Smokeless Tobacco: Never Alcohol Use Standard Drinks/Week Comments Never 0 (1 standard drink = 0.6 oz pur e alcohol) Depression Answer Date Recorded Patient Health Questionnaire-9 Score 0 01/07/2023 Housing Stability Answer Date Recorded What is your housing situation today? I have kamini daniels 01/13/[address] you li ve. Do you have problems with any of the following? Pests such as bugs, ants, or mice 01/13/2023 Food Insecurity Answer Date Recorded Within the past 12 months, y ou worried that your food would run out before you got money to buy more: Never True 01/23/2023 Within the past 12 months,th e food you bought just didn't last and you didn't have enough money to get more: Never True Transportation Answer Date Recorded In the past [...] Answer Date Recorded Patient Health Questionnaire-2 Score 0 01/07/2023 Sex and Gender Information Value Date Recorded Sex Assigned at Male 02/05/2022 10:14 AM EDT Legal Sex Male 10:14 AM EDT Gender Identity Male 02/05/2022 10:14 AM EDT Sexual Orientation Don't know 02/05/2022 10 :14 AM EDT documented as of this encounter Plan of Treatment Upcoming Encounters Date Type Department Care Team (Late st Contact Info) Description 07/30/2024 10:15 AM EDT Office Visit [facility] MEDICINE [address] [place] [address] Hanna Moyer MD [address] [place], [place] [phone] Scheduled Orders Name Type Priority Associated Diagnoses Orde r Schedule Albumin, Random Urine W/Creatinine Lab Routine Type 2 diabetes mellitus with hyperglycemia, with long-term current use of insulin ([facility]) Expected: 08/26/2023 (Approximate), Expires: 08/25/2024 Lipid Panel with Reflex to Direct LDL Lab Routine Type 2 diabetes mellitus with hyperglycemia, with long-term current use of insulin ([facility]) Expected: 08/26/2023 (Approximate), Expires: 08/25/2024 documented as of this encounter Goals Goal Patient Goal Type Associated Problems Recent Progress Patient-Stated? Author Blood Pressure < 140/90 Blood Pressure 123/80(2024 11:50 AM EST) No Valentín Anguiano, PharmGopal Hemoglobin A1c < 7 Result Component 9.6( 11:53 AM EST) No Valentín Anguiano, Sean documented as of this encounter Procedures Procedure Name Priority Date/Time Associated Diagnosis Comments VITAMIN B12/FOLATE, SERUM PANEL Routine 08/28/2023 10:55 AM EDT Type 2 diabetes mellitus with hyperglycemia, with long-term current use of insulin ([facility]) TSH W/REFLEX TO FT4 Routine 08/28/2023 1 0:55 AM EDT Primary hypertension Diplopia HEMOGLOBIN A1C Routine 08/28/2023 10:55 AM EDT Type 2 diabetes mellitus with hyperglycemia, with long-term current use of insulin ([facility]) documented in this encounter Results * TSH with Reflex to Free T4 (08/28/2023 10:55 AM EDT) TSH reflex Free T4 1.07 0.32 - 4.0 uIU/mL [facility] Blood 08/28/2023 10:5 5 AM EDT 08/28/2023 1:06 PM EDT us Hanna Moyer MD LAB BLOOD ORDERABLES Final Resul t Performing Organization Address City/[facility]/ZIP Co de Phone Number [facility] [address] [place] [phone] * (ABNORMAL) Hemoglobin A1c (08/28/2023 10:55 AM EDT) Hemoglobin A1c 10.9(H) <6.0 % [facility] Comment:Hemoglobin A1C Refer ence Range Adults: 4.8 - 6.0 % Non diabetic: < 6.0 % Goal: < 7.0 %Additional Action Suggested: > 8.0 %Note: Hemoglobin A1c results are invalid for patients with abnormal amounts of HbF. Blood transfusions may impact the HbA1c concentration in the patient sample. Estimated Average Glucose 266 mg/dL [facility] Comment:eAG = Estimated ave rage glucose which is %A1C expressed asaverage glucose, using the formula of the C2S-NerydfsFvvcnft Glucose study (ADAG), Diabetes Care, Vol.31,#8,Nov. 2007 Blood Venous blood specimen / Unknown 08/28/2023 10:55 AM EDT 08/28/2023 1:06 PM EDT us Hanna Moyer MD LAB BLOOD ORDERABLES Final Resul t [facility] [address] [place] [phone] * Vitamin B12/Folate, Serum Panel (08/28/2023 10:55 AM EDT) Vitamin B12 318 200 - 900 pg/mL [facility] Comment:NORMAL 200-900 PG/ML INDETERMINATE 160-199 PG/ML DEFICIENT < 160 PG/ML Folate 13.3 > or = 4.0 ng/mL [facility] Comment:Reference Values:> o r = 4.0 ng/mL< 4.0 ng/mL suggests folate deficiency Methotrexate, aminopterin and folinic acid(leucovorin) are chemotherapeutic agents whose molecularstructures are similar to folate; therefore, the Architectfolate assay cannot be used for patients using these drugs. 08/28/2023 10:5 5 AM EDT 08/28/2023 1:06 PM EDT Hanna Moyer MD LAB BLOOD ORDERABLES Final Resul t Performing Organization Address [facility] Co de Phone Number [facility] [address] [place] [phone] documented in this encounter Visit Diagnoses Diagnosis Primary hypertension- Primary Unspecified essential hypertension Type 2 diabetes mellitus with hyperglycemia, with long-term current use of insulin ([facility]) Diplopia documented in this encounter Additional Health Concerns Assessment Noted Time PHQ-9 Depression Total Score: 0 01/08/20 23 10:24 AM EDT documented as of this encounter Care Teams Clinical Orthoptist Relationship Specialty Start Date End Date Hanna Moyer MD [address] [place] [address] PCP - General Family Medicine 10/08/11 Valentín Anguiano, LeannD [address] [place] [address] Pharmacist Internal Medicine 01/18/23 documented as of this encounter
--- OUTSIDE RECORDS SUMMARY | 2024-06-18 09:17 | XMS_ITS | Encounter Summary ---
Author Organization [employer] Address [address] [facility] 7t [place] [address] Care Team Providers Care Rn Diabetes Name Role Phone Hanna Moyer MD Primary Care Provider [phone] Valentín Anguiano PharmD Unavailable [phone] Reason for Visit * Reason Comments Med Refill Encounter Details Date Type Department Care Team (Late st Contact Info) Description 10/11/2023 Refill [facility] MEDICINE [address] [place], [place] [phone] Hanna Moyer MD [address] [place], [place] [phone] Type 2 diabetes mellitus with diabetic polyneuropathy, with long-term current use of insulin ([facility]) Social History Tobacco Use Types [...] Description 07/30/2024 10:15 AM EDT Office Visit [facility] MEDICINE [address] [place] [phone] Hanna Moyer MD [address] [place] [phone] documented as of this encounter Goals Goal [...] polyneuropathy, with long-term current use of insulin ([facility]) documented in this encounter Additional Health Concerns Assessment Noted Time PHQ-9 Depression Total Score: 0 01/08/20 23 10:24 AM EDT documented as of this encounter Care Teams Rn Diabetes Relationship Specialty Start Date End Date Hanna Moyer MD [address] [place] [phone] PCP - General Family Medicine 10/08/11 Valentín Anguiano PharmD [address] [place] [phone] Pharmacist Internal Medicine 01/18/23 documented as of this encounter
--- OUTSIDE RECORDS SUMMARY | 2024-06-18 09:17 | XMS_ITS | Encounter Summary ---
Author Organization [email or web address] [facility] Address [address] [facility] 7t h Floor [place] [id number] Care Team Providers Care Window Draper Name Role Phone Hanna Moyer MD Primary Care Provider [phone] Valentín Anguiano PharmD Unavailable [phone] Reason for Referral * Consultation (Routine) - Authorized Specialty Diagnoses / Procedures Referred By Contac t Referred To Contact Pharmacy Diagnoses Type 2 diabetes mellitus with hyperglycemia, with long-term current use of insulin (CMS/HCC) Primary hypertension Hanna Moyer MD [address] [place] [address] Phone: tel: fax: Referral ID Status Reason Start Date Expiration Date Visits Requested Visits Authorized [id number] Authorized Consult and Treat 01/17/2024 01/16/2025 6 6 Encounter Details Date Type Department Care Team (Late st Contact Info) Description 01/17/2024 Orders Only [facility] MEDICINE [address] [place] [address] [phone] Hanna Moyer MD [address] [place], [place] [phone] Type 2 diabetes mellitus with hyperglycemia, with long-term current use of insulin (CMS/HCC) (Primary Dx); Primary hypertension Social History Tobacco Use Types Packs/Day Years Used Date Smoking Tobacco: Former Cigarettes Q uit: 12/31/2022 Passive Smoke Exposure: Past Smokeless Tobacco: Never Alcohol Use Standard Drinks/Week Comments Never 0 (1 standard drink = 0.6 oz pur e alcohol) Depression Answer Date Recorded Patient Health Questionnaire-9 Score 0 01/07/2023 Housing Stability Answer Date Recorded What is your housing situation today? I have kamini sing 11/05/[address] you li [...] Recorded Patient Health Questionnaire-2 Score 0 01/07/2023 Internet Access Answer Date Recorded Internet Access [...] Description 07/30/2024 10:15 AM EDT Office Visit [facility] [address] [place] [address] Hanna Moyer MD [address] [place] [address] Scheduled Referrals Name Type Priority Associated Diagnoses Orde r Schedule Referral to Pharmacy CDTM Outpatient Referral Routine Type 2 diabetes mellitus with hyperglycemia, with long-term current use of insulin ([facility]) Primary hypertension Ordered: 01/17/2024 documented as of this encounter Goals Goal Patient Goal Type Associated Problems Recent Progress Patient-Stated? Author Blood Pressure < 140/90 Blood Pressure 123/80(2024 11:50 AM EST) No Valentín Anguiano PharmD Hemoglobin A1c < 7 Result Component 9.6( 11:53 AM EST) No Valentín Anguiano PharmD documented as of this encounter Visit Diagnoses Diagnosis Type 2 diabetes mellitus with hyperglycemia, with long-term current use of insulin ([facility])- Primary Primary hypertension Unspecified essential hypertension documented in this encounter Additional Health Concerns Assessment Noted Time PHQ-9 Depression Total Score: 0 01/08/20 10:24 AM EDT documented as of this encounter Care Teams Window Draper Relationship Specialty Start Date End Date Hanna Moyer MD [address] [place] [address] PCP - General Family Medicine 10/08/11 Valentín Anguiano PharmD [address] [place] [id number] Pharmacist Internal Medicine 01/18/23 documented as of this encounter
[2024-06-18 12:07] LABS: Alanine Aminotransferase 25 U/L (0-40); Alkaline Phosphatase 78 U/L (39-117); Anion Gap 11 (12-20); Aspartate Amino Transferase 24 U/L (5-37); Bilirubin Total 0.4 mg/dL (0.0-1.0); Blood Urea Nitrogen 18 mg/dL (9-16); Calcium 9.2 mg/dL (8.4-10.2); Carbon Dioxide 25 mmol/L (22-29); Chloride 106 mmol/L (96-108); Cholesterol 129 mg/dL (<200); Estimated Glomerular Filt Rate > 60; Glucose Random 135 mg/dL (60-115); HDL Cholesterol 35 mg/dL (>40); LDL Cholesterol Calculated 72 mg/dL (<100); Microalbum/Creatinine Ratio Ur 13.6 ug/mg cr (<30); Potassium 3.6 mmol/L (3.3-5.1); Sodium 138 mmol/L (135-145); Total Protein 7.9 g/dL (6.5-8.0); Triglycerides 112 mg/dL (<150)
[2024-06-18 12:43] LABS: Reflex LDLD? No
[2024-06-19 10:03] LABS: Thyroid Peroxidase Antibodies 1 IU/mL (<9)
[2024-06-19 13:23] LABS: Varicella IgG Antibody 4.51 S/CO
[2024-06-19 21:04] LABS: Rubella IgG Antibody 1.36 Index; Rubeola IgG (Measles) >300.00 AU/mL
[2024-06-22 00:13] LABS: TS Negative Control Passed; TS Panel A 0; TS Panel B 0; TS Positive Control Passed; TSpotTB Negative (Negative)
== END 2024-06-18 08:37 | disposition home or self-care (01) ==
LOC: HO.HHCL 08:36
PROVIDERS: Visit Provider Family Medicine
DX: E01.0 Iodine-deficiency related diffuse (endemic) goiter (principal); I10 Essential (primary) hypertension; E11.65 Type 2 diabetes mellitus with hyperglycemia; Z79.4 Long term (current) use of insulin; Z01.84 Encounter for antibody response examination; E78.1 Pure hyperglyceridemia
CPT/HCPCS: 36415; 80053; 80061; 82043; 82570; 86376; 86481; 86735; 86762; 86765; 86787

== ENCOUNTER 2024-07-23 12:43 | Outpatient (REF) | payer MEDICAID, SELFPAY | END 2024-07-23 12:44 | disposition home or self-care (01) | LOC: HO.HHCL 12:43 | PROVIDERS: Visit Provider Family Medicine | DX: Z13.89 Encounter for screening for other disorder (principal) ==

== ENCOUNTER 2024-07-23 12:48 | Outpatient (REF) | payer MEDICAID, SELFPAY ==
--- OUTSIDE RECORDS SUMMARY | 2024-07-23 15:36 | XMS_ITS | Encounter Summary ---
Author Organization [employer] Address [address] [facility] 7t [place] [address] Care Team Providers Care Wire Steward Name Role Phone Hanna Moyer MD Primary Care Provider [phone] Valentín Anguiano PharmD Unavailable [phone] Reason for Visit * Reason Comments Med Refill Encounter Details Date Type Department Care Team (Late st Contact Info) Description 10/11/2023 Refill [facility]INE [address] [place], [place] [phone] Hanna Moyer MD [address] [place], [place] [phone] Type 2 diabetes mellitus with diabetic polyneuropathy, with long-term current use of insulin ([facility]) Social History Tobacco Use Types Packs/Day Years [...] Description 07/30/2024 10:15 AM EDT Office Visit [facility] MED[facility] [address] [place] [address] Hanna Moyer MD [address] [place] [address] 09/25/2024 3:00 PM EDT Office Visit [facility] MEDICINE [address] [place] [address] Praveen Sanchez MD [address] [place] [address] 10/16/2024 9:00 AM EDT Office Visit [facility] OPTOMETRY [address] [place] [address] Marissa Kimball, OD [address] [place] [address] documented as of this encounter Goals Goal [...] polyneuropathy, with long-term current use of insulin ([facility]) documented in this encounter Additional Health Concerns Assessment Noted Time PHQ-9 Depression Total Score: 0 01/08/20 23 10:24 AM EDT documented as of this encounter Care Teams Wire Steward Relationship Specialty Start Date End Date Hanna Moyer MD [address] [place] [address] PCP - General Family Medicine 10/08/11 Valentín Anguiano, LeannD [address] [place] [address] Pharmacist Internal Medicine 01/18/23 documented as of this encounter
--- OUTSIDE RECORDS SUMMARY | 2024-07-23 15:36 | XMS_ITS | Encounter Summary ---
Author Organization [employer] [facility] Address [address] [facility] 7t h Floor [place] [phone] Care Team Providers Care Thin Film Technician Name Role Phone Hanna Moyer MD Primary Care Provider Valentín Anguiano PharmD Unavailable [phone] Reason for Referral * Consultation (Routine) - Authorized Specialty Diagnoses / Procedures Referred By Contac t Referred To Contact Pharmacy Diagnoses Type 2 diabetes mellitus with hyperglycemia, with long-term current use of insulin (CMS/HCC) Primary hypertension Hanna Moyer MD [address] [place] [address] Phone: tel: fax: Referral ID Status Reason Start Date Expiration Date Visits Requested Visits Authorized [id number] Authorized Consult and Treat 01/17/2024 01/16/2025 6 6 Encounter Details Date Type Department Care Team (Late st Contact Info) Description 01/17/2024 Orders Only [facility] MEDICINE [address] [place] [address] [phone] Hanna Moyer MD [address] [place], [place] [phone] Type 2 diabetes mellitus with hyperglycemia, with [...] Description 07/30/2024 10:15 AM EDT Office Visit [facility] MEDICINE [address] [place] [phone] Hanna Moyer MD [address] [place] [address] 09/25/2024 3:00 PM EDT Office Visit [facility] MEDICINE [address] [place] [address] Praveen Sanchez MD [address] [place] [address] 10/16/2024 9:00 AM EDT Office Visit [facility] OPTOMETRY [address] [place] [address] Marissa Kimball, OD [address] [place] [address] Scheduled Referrals Name Type Priority Associated Diagnoses Orde r Schedule Referral to Pharmacy CDTM Outpatient Referral Routine Type 2 diabetes mellitus with hyperglycemia, with long-term current use of insulin ([facility]) Primary hypertension Ordered: 01/17/2024 documented as of [...] hyperglycemia, with long-term current use of insulin ([facility])- Primary Primary hypertension Unspecified essential hypertension documented in this encounter Additional Health Concerns Assessment Noted Time PHQ-9 Depression Total Score: 0 01/08/20 23 10:24 AM EDT documented as of this encounter Care Teams Thin Film Technician Relationship Specialty Start Date End Date Hanna Moyer MD [address] [place] [address] PCP - General Family Medicine 10/08/11 Valentín Anguiano, Sean [address] [place] [address] Pharmacist Internal Medicine 01/18/23 documented as of this encounter
--- OUTSIDE RECORDS SUMMARY | 2024-07-23 15:36 | XMS_ITS | Encounter Summary ---
Author Organization [employer] Address [address] [facility] 7t [place] [address] Care Team Providers Care Senior System Operator Name Role Phone Hanna Moyer MD Primary Care Provider Valentín Anguiano PharmD Unavailable [phone] Reason for Visit * Reason Onset Date Comments chart prep 07/20/2024 Encounter Details Date Type Department Care Team ([facility] st Contact Info) Description 07/20/2024 Telephone [facility] MEDICINE [address] [place] [address] Hanna Moyer MD [address] [place] [address] chart prep Social History Tobacco Use Types Packs/Day Years [...] encounter Miscellaneous Notes * Telephone Encounter - Rosy Bowens [place] - 07/20/2024 9:38 AM EDT ..Chart Prep Labs: not applicable Images: not done xray shoulder Vaccines due: Updated Referrals: Completed Screenings: Not Applicable Overdue care gaps: A1C, Glucose, and Disability documented in this encounter Plan of Treatment Upcoming Encounters Date Type Department Care Team (Late st Contact Info) Description 07/30/2024 10:15 AM EDT Office Visit [facility] MEDICINE [address] [place] [phone] Hanna Moyer MD [address] [place] [address] 09/25/2024 3:00 PM EDT Office Visit [facility] MEDICINE [address] [place] [address] Praveen Sanchez MD [address] [place] [address] 10/16/2024 9:00 AM EDT Office Visit [facility] OPTOMETRY [address] [place] [address] Marissa Kimball OD [address] [place] [address] documented as of this encounter Goals Goal Patient Goal Type Associated Problems Recent Progress Patient-Stated? Author Blood Pressure < 140/90 Blood Pressure 123/80(2024 11:50 AM EST) No Valentín Anguiano PharmD Hemoglobin A1c < 7 Result Component 9.6( 11:53 AM EST) No Valentín Anguiano PharmD documented as of this encounter Visit Diagnoses Not on filedocumented in this encounter Additional Health Concerns Assessment Noted Time PHQ-9 Depression Total Score: 14 025 12:01 PM EST documented as of this encounter Care Teams Senior System Operator Relationship Specialty Start Date End Date Hanna Moyer MD [address] [place] [address] PCP - General Family Medicine 10/08/11 Valentín Anguiano PharmD [address] [place] [address] Pharmacist Internal Medicine 01/18/23 documented as of this encounter
--- OUTSIDE RECORDS SUMMARY | 2024-07-23 15:36 | XMS_ITS | Clinical Summary ---
Author Organization [employer] Address [address] [facility] [address] [place] [address] Care Team Providers Care Assembly Worker Name Role Phone Hanna Moyer MD Primary Care Provider [phone] Valentín Anguiano PharmD Unavailable [phone] Allergies Active Allergy Reactions Criticality Noted Date Comments Exenatide 10/13/2015 Medications Blood Pressure Monitor kit Check blood pressure once daily and as needed 1 kit 3 Active Alcohol Swabs (Alcohol Prep) 70 % pads USE THREE TIMES DAILY AND NEEDED 100 each 11 3 Active Continuous Blood Gluc Receiving Room Clerk (FreeStyle Zulay 2 Tickfaw) device Use as directed 1 each 1 3 Active simethicone (Mylicon) 125 MG chewable tablet CHEW 1 TABLET BY MOUTH 4 TIMES A DAY IN THE MORNING, AT NOON, IN THE EVENING, AND AT BEDTIME NEEDED FOR GAS 30 tablet 3 Active insulin pen needle (UltiCare Short Pen Weare) 31G X 8 mm miscIndications:T ype 2 diabetes mellitus with hyperglycemia, with long-term current use of insulin (CMS/[facility]) USE FOUR TIMES DAILY 100 each 11 4 Active insulin lispro (HumaLOG KWIKPEN) 100 UNIT/ML injectionIndicati ons:Type 2 diabetes mellitus with hyperglycemia, with long-term current use of insulin (CMS/HCC) Inject 20 units under the skin three times daily before meals 45 mL 3 4 Active insulin degludec (Tresiba) 100 UNIT/ML injectionIndicati ons:Type 2 diabetes mellitus with hyperglycemia, with long-term current use of insulin (CMS/[facility]) Inject 56 units under the skin once daily 45 mL 3 4 Active glucose blood (FreeStyle Precision Kane Test) test stripIndications: Type 2 diabetes mellitus with hyperglycemia, with long-term current use of insulin ([facility]) USE DIRECTED TO TEST BLOOD SUGAR THREE TIMES DAILY 50 strip 11 4 Active atorvastatin (Lipitor) 10 MG tabletIndications :Type 2 diabetes mellitus with hyperglycemia, with long-term current use of insulin ([facility]) TAKE 1 TABLET BY MOUTH EVERY DAY 90 tablet 3 4 Active B Complex-C (b complex-vitamin c) tablet Take 1 tablet by mouth Once per day. 4 Active empagliflozin (Jardiance) 25 MGIndications:Typ e 2 diabetes mellitus with hyperglycemia, with long-term current use of insulin ([facility]) Take 1 tablet (25 mg) by mouth Once per day. 30 tablet 11 4 01/01/20 25 Active Continuous Glucose Sensor (FreeStyle Zulay 2 Sensor) miscIndications:T ype 2 diabetes mellitus with hyperglycemia, with long-term current use of insulin ([facility]) Use as directed 2 each 11 4 Active FreeStyle lancets 1 each by Other route 3 times daily. Check blood glucose 100 each 11 4 Active lisinopril 20 MG tabletIndications :Primary hypertension TAKE 1 TABLET BY MOUTH EVERY MORNING 90 tablet 3 4 Active hydrocortisone 1 % cream Apply topically 2 times daily. 20 g 1 5 Active amLODIPine (Norvasc) 5 MG tabletIndications :Primary hypertension TAKE 1 TABLET BY MOUTH EVERY DAY IN THE MORNING 90 tablet 1 5 Active gabapentin (Neurontin) 400 MG capsuleIndication s:Type 2 diabetes mellitus with diabetic polyneuropathy, with long-term current use of insulin ([facility]) TAKE 1 CAPSULE BY MOUTH TWICE DAILY 60 capsule 5 Active Active Problems Problem Noted Date Diagnosed Date [...] AM EDT): - seen by Dr. Kimball, [facility], for diplopia. - Dx left [...] sooner prn Last eye exam: Nov 2022, [facility], Mild nonproliferative diabetic retinopathy without [...] sooner prn Last eye exam: Nov 2022, [facility], Mild nonproliferative diabetic retinopathy without [...] if any problem arises - Referred to [facility] Assessment & Plan (10/14/2022 5:49 PM [...] if any problem arises - Referred to [facility] Assessment & Plan (07/22/2022 5:30 PM [...] Encounters Date Type Department Care Team Description 07/20/2024 Telephone [facility] [address] [place] [address] Hanna Moyer MD chart prep 06/19/2024 Population Health Risk Score Community [facility] ([facility]) Department [address] [address] Provider, Population Health Generic 06/18/2024 Orders Only [facility] [address] [place] [address] Hanna Moyer MD 06/17/2024 Telephone [facility] [address] [place] [address] Nallely Alfredo, machine shop apprentice Orders 06/03/2024 Refill [facility] [address] [place] [address] Hanna Moyer MD Type 2 diabetes mellitus with diabetic polyneuropathy, with long-term current use of insulin ([facility]) 05/11/2024 Refill [facility] [address] [place] [address] Hanna Moyer MD Primary hypertension from Last 3 Months Immunizations Name Administration Dates Next Due Hep B, adult 03/30/2019,11/15/2016,10/13/2015 Influenza Injectable Quadriv alant Preservative Free IIV4 MDCK 01/07/2023 Influenza injectable quadriv alent preservative free 03/27/2016 Influenza, IIV3, injectable 02/18/2014, 2,01/02/2010 Influenza, Split (incl. dominique fied surface antigen) 01/15/2013,12/31/2011 Influenza, seasonal, injecta ble, preservative free 04/14/2024 Pfizer Covid-19 Vaccine 12+ 04/14/2024, 3 Pneumococcal Conjugate PCV 20 07/10/2022 Pneumococcal Polysaccharide [...] Description 07/30/2024 10:15 AM EDT Office Visit [facility] [address] [place] [address] Hanna Moyer MD [address] [place] [address] 09/25/2024 3:00 PM EDT Office Visit [facility] [address] [place] [address] Praveen Sanchez MD [address] [place] [address] 10/16/2024 9:00 AM EDT Office Visit [facility] OPTOMETRY [address] [place] [address] JigarMarissa ordonez, OD [address] [place] [address] Health Maintenance Due Date Last Done Comments Family Planning (PISQ) 1997 Diabetes: Hemoglobin A1C 07/13/2024 025, 11/19/2023, 08/28/2023, Additional history exists Eye Exam 09/03/2024 09/04/2023, 08/07, 09/04/2023, Additional history exists Depression Monitoring 10/12/2024 04/14/2024, 025 SDOH Screening 11/04/2024 11/05/2023 Diabetes: Foot Exam 11/17/2024 11/18/2023, 11/18/2023, 11/18/2023, Additional history exists Alcohol/Substance Use Screening 04/14/2025 04/14/2024 Depression Screening 04/14/2025 04/14/2024, 04/14/19 Tobacco Screening 04/20/2025 04/20/2024 Diabetes: Urine Protein Screening 06/18/2025 06/18/2024, 11/18/2023, 01/07/2023, Additional history exists Lipid Panel 06/18/2025 06/18/2024, 08/07, 01/07/2023, Additional history exists DTaP/Tdap/Td Vaccines (4 - Td or Tdap) [...] Procedure Name Priority Date/Time Associated Diagnosis Comments T-SPOT(R).TB Routine 06/18/2024 8:38 AM EDT MEASLES, MUMPS, AND RUBELLA (MMR) AB (IGG) PANEL, IMMUNE STATUS Routine 06/18/2024 8:38 AM EDT VARICELLA ZOSTER ANTIBODY, IGG Routine 06/18/2024 8:38 AM EDT COMPREHENSIVE METABOLIC PANEL Routine 06/18/2024 8:38 AM EDT Type 2 diabetes mellitus with hyperglycemia, with long-term current use of insulin (CMS/HCC) ALBUMIN, RANDOM URINE W/CREATININE Routine 06/18/2024 8:38 AM EDT Primary hypertension Type 2 diabetes mellitus with hyperglycemia, with long-term current use of insulin (CMS/HCC) LIPID PANEL WITH REFLEX TO DIRECT LDL Routine 06/18/2024 8:38 AM EDT Type 2 diabetes mellitus with hyperglycemia, with long-term current use of insulin ([facility]) Hypertriglyceridem ia THYROID PEROXIDASE ANTIBODIES Routine 06/18/2024 8:38 AM EDT Thyromegaly POCT GLYCOSYLATED HEMOGLOBIN (HGB A1C) Routine 04/14/2024 11:53 AM EST Type 2 diabetes mellitus with hyperglycemia, with long-term current use of insulin (CMS/HCC) HEPATITIS C AB W/REFL TO HCV RNA, QN, PCR Routine 01/07/2023 11:35 AM EDT Type 2 diabetes mellitus with diabetic polyneuropathy, with long-term current use of insulin ([facility]/HCC) HIV 1/2 ANTIGEN/ANTIBODY, FOURTH GENERATION W/RFL Routine 04/19/2021 9:19 AM EST from Last 3 Months or Most Recently Relevant to Health Maintenance Results * T-SPOT??.TB (06/18/2024 8:38 AM EDT) [facility] T Spot TB Negative Negative [facility] Comment:A negative test resu lt does not exclude the possibilityof exposure to or infection with Mycobacteriumtuberculosis (M. tuberculosis). Patients with recentexposure to TB infected individuals exhibiting anegative T-SPOT.TB result should be considered forretesting within 6 weeks or if other relevant clinicalsymptoms indicate. Results from T-SPOT.TB testing mustbe used in conjunction with each individual'sepidemiological history, current medical status,and results of other diagnostic evaluations.The T-SPOT.TB test is qualitative and results arereported as positive, borderline, or negative, giventhat the test controls perform as expected. In linewith the Centers for Disease Control and Prevention's2010 recommendation to report quantitative measurementsalongside the qualitative result, the laboratoryprovides spot counts for informational purposes only.The T-SPOT.TB test should not be interpreted as aquantitative test. TS PANEL A 0 [facility] TS PANEL B 0 [facility] Negative Control Passed [facility] Positive Control Passed [facility] Comment:For additional infor karthikeyan, please refer [email or web address].[email or web address] Prell/faq/EZE101(This link is being provided for informational/educational purposes only.)THIS TEST WAS PERFORMED AT:[id number] [place] [address]SXCXIQUBRENDEN BARRAGAN MD,PHD 06/18/2024 8:38 AM EDT 06/18/2024 11:15 AM EDT us Hanna Moyer MD LAB BLOOD ORDERABLES Final Resul t [facility] [address] [place] [phone] * Measles, Mumps, and Rubella (MMR) Antibodies??(IgG) Panel, Immune Status (06/18/2024 8:38 AM EDT) Mumps Virus IgG Antibody 235.00 AU/mL [facility] Comment:AU/mL Interpretatio n------- <9.00 Not consistent with immunity9.00-10.99 Equivocal>10.99 Consistent with immunityThe presence of mumps IgG antibody suggests immunizationor past or current infection with mumps virus. Rubella IgG Antibody 1.36 Index [facility] Comment:Index Interpretation ----- <0.90 Not consistent with immunity 0.90-0.99 Equivocal > or = 1.00 Consistent with immunityThe presence of rubella IgG antibody suggestsimmunization or past or current infection withrubella virus.THIS TEST WAS PERFORMED AT:[facility] [place] [id number] DODSON MD Rubeola IgG (Measles) >300.00 AU/mL [facility] Comment:AU/mL Interpretation ----- <13.50 Not consistent with inwsfsce62.50-16.49 Equivocal>16.49 Consistent with immunityThe presence of measles IgG suggests immunization orpast or current infection with measles virus.For additional information, please refer [email or web address].MyDemocracy/faq/DRG180(This link is being provided for informational/educational purposes only.) 06/18/2024 8:38 AM EDT 06/18/2024 11:15 AM EDT us Hanna Moyer MD LAB BLOOD ORDERABLES Final Resul t [facility] [address] [place] [phone] [phone] * (ABNORMAL) Lipid Panel with Reflex to Direct LDL (06/18/2024 8:38 AM EDT) Triglycerides 112 <150 mg/dL [facility] Comment:Desirable Triglyceri de: less than 150 mg/dLBorderline High Triglyceride 150-199 mg/dLHigh Triglyceride: 200-499 mg/dLVery High Triglyceride: greater than or equal to 5OO mg/dL Cholesterol 129 <200 mg/dL [facility] Comment:Desirable Cholestero l: less than 200 mg/dLBorderline High Cholesterol: 200-239 mg/dLHigh Cholesterol: greater than 239 mg/dL LDL Cholesterol Calculated 72 <100 mg/dL [facility] Comment:Desirable LDL: less than 100 mg/dLNear Optimal/Above Optimal LDL: 110- 129 mg/dLBorderline High LDL: 130-159 mg/dLHigh LDL: 160-189 mg/dLVery High LDL: greater than or equal to 190 mg/dL HDL Cholesterol 35(L) >40 mg/dL [facility] Comment:Desirable HDL: great er than 40 mg/dL Note: This HDL assay may give artificially low results in patients with liver disease. Blood 06/18/2024 8:38 AM EDT 06/18/2024 11:15 AM EDT us Hanna Moyer MD LAB BLOOD ORDERABLES Final Resul t Performing Organization Address [facility] Co de Phone Number [facility] [address] [place] [phone] * Albumin, Random Urine W/Creatinine (06/18/2024 8:38 AM EDT) Creatinine, Urine 102.30 mg/dL [facility] Microalbumin Urine 14.0 mg/L [facility] Microalbum Creatinine Ratio Ur 13.6 <30 ug/mg cr [facility] Comment:Albumin/Creatinine R atio Reference Ranges: Normal: < 30 ug/mg creatinine Microalbuminuria: 30 - 300 ug/mg creatinineClinical Albuminuria: > 300 ug/mg creatinine Urine 06/18/2024 8:38 AM EDT 06/18/2024 11:10 AM EDT us Hanna Moyer MD LAB URINE ORDERABLES Final Resul t Performing Organization Address [facility] Co de Phone Number [facility] [address] [place] [phone] * Thyroid Peroxidase Antibodies (06/18/2024 8:38 AM EDT) Thyroid Peroxidase Antibodies 1 <9 IU/mL [facility] Comment:THIS TEST WAS PERFOR MED AT:[facility] [place] [phone] DODSON MD Blood Venous blood specimen / Unknown 06/18/2024 8:38 AM EDT 06/18/2024 11:15 AM EDT Hanna Moyer MD LAB BLOOD ORDERABLES Final Resul t Performing Organization Address [facility] Co de Phone Number [facility] [address] [place] [address] [phone] * Varicella zoster antibody, IgG (06/18/2024 8:38 AM EDT) Varicella IgG Antibody 4.51 S/CO [facility] Comment:Signal to Cut-off S /CO Interpretation --------- <1.00 Negative - Antibody not detected > or = 1.00 Positive - Antibody detected A positive result indicates that the patient has antibody to VZV but does not differentiate between an active or past infection. The clinical diagnosis must be interpreted in conjunction with the clinical signs and symptoms of the patient. This assay reliably measures immunity due to previous infection but may not be sensitive enough to detect antibodies induced by vaccination. Thus, a negative result in a vaccinated individual does not necessarily indicate susceptibility to VZV infection. A more sensitive test for vaccination-induced immunity is Varicella Zoster Virus Antibody Immunity Screen, ACIF.THIS TEST WAS PERFORMED AT:[facility] [address] [phone] DODSON MD 06/18/2024 8:38 AM EDT 06/18/2024 11:15 AM EDT Hanna Moyer MD LAB BLOOD ORDERABLES Final Resul t Performing Organization Address [facility] Co de Phone Number [facility] [address] [place] [phone] [phone] * (ABNORMAL) Comprehensive Metabolic Panel (06/18/2024 8:38 AM EDT) Pathologist [facility] Sodium 138 135 - 145 mmol/L [facility] Potassium 3.6 3.3 - 5.1 mmol/L [facility] Chloride 106 96 - 108 mmol/L [facility] Carbon Dioxide 25 22 - 29 mmol/L [facility] Anion Gap 11(L) 12 - 20 [facility] Urea Nitrogen (BUN) 18(H) 9 - 16 mg/dL [facility] Creatinine, Serum 0.77 0.5 - 1.4 mg/dL [facility] Estimated Glomerular Filt Rate >60 [facility] Comment:Chronic Kidney Disea se: Estimated GFR < 60 mL/min/1.81u0Sbljzt Kidney Disease: Estimated GFR < 15 mL/min/1.73m2 Glucose 135(H) 60 - 115 mg/dL [facility] Calcium 9.2 8.4 - 10.2 mg/dL [facility] Bilirubin, Total 0.4 0.0 - 1.0 mg/dL [facility] Aspartate Amino Transferase 24 5 - 37 U/L [facility] Alanine Aminotransferase 25 0 - 40 U/L [facility] Total Protein 7.9 6.5 - 8.0 g/dL [facility] Albumin Level 4.0 3.5 - 5.0 g/dL [facility] Alkaline Phosphatase 78 39 - 117 U/L [facility] Blood Venous blood specimen / Unknown 06/18/2024 8:38 AM EDT 06/18/2024 11:15 AM EDT us Hanna Moyer MD LAB BLOOD ORDERABLES Final Resul t [facility] [address] [place] [phone] [phone] * (ABNORMAL) POCT glycosylated hemoglobin (Hgb A1c) (04/14/2024 11:53 AM EST) Hemoglobin A1C 9.6(A) 4.0 - 6.0 % QC Media Lot # [id number] Lot# Expiration Date Blood Capillary blood specimen / Unknown 04/14/2024 11:53 AM EST us Hanna Moyer MD POINT OF CARE TEST ENTER/EDIT OR DERABLES Final Result * Hepatitis C Antibody with Reflex to HCV, RNA, Quantitative, Real-Time PCR (01/07/2023 11:35 AM EDT) Hepatitis C Antibody Nonreactive Nonreactive [facility] Comment:Antibodies to HCV no t detected; does not exclude early acuteHCV infection. Blood Venous blood specimen / Unknown 01/07/2023 11:35 AM EDT 01/07/2023 1:12 PM EDT us Hanna Moyer MD LAB BLOOD ORDERABLES Final Resul t [facility] [address] [place] [phone] * HIV 1/2 ANTIGEN/ANTIBODY,FOURTH GENERATION W/RFL (04/19/2021 9:19 AM EST) HIV-1/2 ANTIGEN AND ANTIBODIES, 4TH GENERATION W/ REFLEX NON-REACT BRIGETTE NON-REACT BRIGETTE [facility] Comment: HIV-1 antigen and HIV-1/HIV-2 [...] ? For additional information please refer to http://education.Zachary Prell/faq/SKN852 (This link is being provided for informational/ educational purposes only.) ? The performance of this assay has not been clinically validated in patients less than 2 years old. ?? 04/19/2021 9:19 AM EST Hanna Moyer MD LAB BLOOD ORDERABLES Final Resul t [facility] [address] from Last 3 Months or Most Recently Relevant to Health Maintenance Insurance [employer] C3 Care Teams Assembly Worker Relationship Specialty Start Date End Date Hanna Moyer MD [address] [place] [address] PCP - General Family Medicine 10/08/11 Valentín Anguiano, PharmD [address] [place] [address] Pharmacist Internal Medicine 01/18/23
--- OUTSIDE RECORDS SUMMARY | 2024-07-23 15:36 | XMS_ITS | Encounter Summary ---
Author Organization [employer] Address [address] [facility] [address] [place] [address] Care Team Providers Care Legal File Clerk Name Role Phone Hanna Moyer MD Primary Care Provider [phone] Valentín Anguiano PharmD Unavailable [phone] Encounter Details Date Type Department Care Team (Late st Contact Info) Description 08/26/2023 Orders Only [facility] MEDICINE [address] [place], [place] [phone] Hanna Moyer MD [address] [place], [place] [phone] Primary hypertension (Primary Dx); Type 2 diabetes mellitus with hyperglycemia, with long-term current use of insulin ([facility]); Diplopia Social History Tobacco Use Types Packs/Day [...] 10:15 AM EDT Office Visit [facility] MEDICINE [address] [place] [address] Hanna Moyer MD [address] [place] [address] 09/25/2024 3:00 PM EDT Office Visit [facility] MEDICINE [address] [place] [address] Praveen Sanchez MD [address] [place] [address] 10/16/2024 9:00 AM EDT Office Visit [facility] OPTOMETRY [address] [place] [address] JigarMarissa ordonez, OD [address] [place] [address] Scheduled Orders Name Type Priority Associated Diagnoses Orde r Schedule Albumin, Random Urine W/Creatinine Lab Routine Type 2 diabetes mellitus with hyperglycemia, with long-term current use of insulin ([facility]) Expected: 08/26/2023 (Approximate), Expires: 08/25/2024 Lipid Panel with Reflex to Direct LDL Lab Routine Type 2 diabetes mellitus with hyperglycemia, with long-term current use of insulin ([facility]) Expected: 08/26/2023 (Approximate), Expires: 08/25/2024 documented as of this encounter Goals Goal Patient Goal Type Associated Problems Recent Progress Patient-Stated? Author Blood Pressure < 140/90 Blood Pressure 123/80(2024 11:50 AM EST) No Valentín Anguiano PharmD Hemoglobin A1c < 7 Result Component 9.6( 11:53 AM EST) No Valentín Anguiano PharmD documented as of this encounter Procedures Procedure Name Priority Date/Time Associated Diagnosis Comments VITAMIN B12/FOLATE, SERUM PANEL Routine 08/28/2023 10:55 AM EDT Type 2 diabetes mellitus with hyperglycemia, with long-term current use of insulin ([facility]) TSH W/REFLEX TO FT4 Routine 08/28/2023 1 0:55 AM EDT Primary hypertension Diplopia HEMOGLOBIN A1C Routine 08/28/2023 10:55 AM EDT Type 2 diabetes mellitus with hyperglycemia, with long-term current use of insulin ([facility]) documented in this encounter Results * TSH with Reflex to Free T4 (08/28/2023 10:55 AM EDT) TSH reflex Free T4 1.07 0.32 - 4.0 uIU/mL [facility] Blood 08/28/2023 10:5 5 AM EDT 08/28/2023 1:06 PM EDT us Hanna Moyer MD LAB BLOOD ORDERABLES Final Resul t [facility] [address] [place] [phone] [phone] * (ABNORMAL) Hemoglobin A1c (08/28/2023 10:55 AM EDT) Hemoglobin A1c 10.9(H) <6.0 % [facility] Comment:Hemoglobin A1C Refer ence Range Adults: 4.8 - 6.0 % Non diabetic: < 6.0 % Goal: < 7.0 %Additional Action Suggested: > 8.0 %Note: Hemoglobin A1c results are invalid for patients with abnormal amounts of HbF. Blood transfusions may impact the HbA1c concentration in the patient sample. Estimated Average Glucose 266 mg/dL [facility] Comment:eAG = Estimated ave rage glucose which is %A1C expressed asaverage glucose, using the formula of the O1A-[id number] Glucose study (ADAG), Diabetes Care, Vol.31,#8,Nov. 2007 Blood Venous blood specimen / Unknown 08/28/2023 10:55 AM EDT 08/28/2023 1:06 PM EDT Hanna Moyer MD LAB BLOOD ORDERABLES Final Resul t Performing Organization Address [facility] Co de Phone Number [facility] [address] [place] [phone] * Vitamin B12/Folate, Serum Panel (08/28/2023 10:55 AM EDT) Vitamin B12 318 200 - 900 pg/mL [facility] Comment:NORMAL 200-900 PG/ML INDETERMINATE 160-199 PG/ML DEFICIENT < 160 PG/ML Folate 13.3 > or = 4.0 ng/mL [facility] Comment:Reference Values:> o r = 4.0 ng/mL< 4.0 ng/mL suggests folate deficiency Methotrexate, aminopterin and folinic acid(leucovorin) are chemotherapeutic agents whose molecularstructures are similar to folate; therefore, the Architectfolate assay cannot be used for patients using these drugs. 08/28/2023 10:5 5 AM EDT 08/28/2023 1:06 PM EDT Hanna Moyer MD LAB BLOOD ORDERABLES Final Resul t Performing Organization Address [facility] Co de Phone Number [facility] [address] [place] [phone] documented in this encounter Visit Diagnoses Diagnosis Primary hypertension- Primary Unspecified essential hypertension Type 2 diabetes mellitus with hyperglycemia, with long-term current use of insulin ([facility]) Diplopia documented in this encounter Additional Health Concerns Assessment Noted Time PHQ-9 Depression Total Score: 0 01/08/20 10:24 AM EDT documented as of this encounter Care Teams Legal File Clerk Relationship Specialty Start Date End Date Hanna Moyer MD [address] [place] [address] PCP - General Family Medicine 10/08/11 Valentín Anguiano PharmD [address] [place] [address] Pharmacist Internal Medicine 01/18/23 documented as of this encounter
[2024-07-23 17:42] LABS: Creatinine Urine 75.68 mg/dL; Microalbum/Creatinine Ratio Ur 25.1 ug/mg cr (<30)
== END 2024-07-23 12:49 | disposition home or self-care (01) ==
LOC: HO.HHCL 12:48
PROVIDERS: Visit Provider Family Medicine
DX: E11.65 Type 2 diabetes mellitus with hyperglycemia (principal); Z79.4 Long term (current) use of insulin
CPT/HCPCS: 82043; 82570

== ENCOUNTER 2024-08-12 12:16 | Outpatient (REF) | payer MEDICAID, SELFPAY ==
--- NOTE | ~2024-08-12 | XR_ITS ---
EXAMINATION: XR SHOULDER, LEFT CLINICAL INFORMATION: left shoulder pain, positive impingement sign COMPARISON: None available. TECHNIQUE: AP external rotation, Grashey, scapular Y, and axillary views of the left shoulder. FINDINGS: No acute cortical disruption or malalignment. No lytic or blastic lesions. No metallic or radiopaque foreign body. No subcutaneous emphysema. XR/XR shoulder LT min 2V IMPRESSION: Normal x-ray left shoulder. Electronically signed by: Atul Hollis MD 08/12/2024 12:43 PM EDT
== END 2024-08-12 12:17 | disposition home or self-care (01) ==
LOC: HO.HHCX 12:16
PROVIDERS: Visit Provider Family Medicine
DX: M25.512 Pain in left shoulder (principal); G89.29 Other chronic pain
CPT/HCPCS: 73030

== ENCOUNTER → 2024-08-12 12:16 | Outpatient (BNV) | payer MEDICAID, SELFPAY | PROVIDERS: Visit Provider Radiology Diagnostic Radiology | DX: M25.512 Pain in left shoulder (principal) | CPT/HCPCS: 73030 ==

== ENCOUNTER → 2024-09-16 20:30 | Outpatient (REF) | payer OTHER, SELFPAY ==
--- OUTSIDE RECORDS SUMMARY | 2024-09-16 21:35 | XMS_ITS | Clinical Summary ---
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 Name Role Phone Hanna Moyer MD Primary Care Provider [phone] Valentín Anguiano PharmD Unavailable [phone] Allergies Active Allergy Reactions Criticality Noted Date Comments Exenatide 10/13/2015 Medications Blood Pressure Monitor kit Check blood pressure once daily and as needed 1 kit 07/11/19 23 Active Alcohol Swabs (Alcohol Prep) 70 % pads USE THREE TIMES DAILY AND NEEDED 100 each 11 10/12/19 23 Active Continuous Blood Gluc Habitat Biologist (FreeStyle Zulay 2 [place]) device Use as directed 1 each 1 01/14/20 23 Active simethicone (Mylicon) 125 MG chewable tablet CHEW 1 TABLET BY MOUTH 4 TIMES A DAY IN THE MORNING, AT NOON, IN THE EVENING, AND AT BEDTIME NEEDED FOR GAS 30 tablet 03/05/20 23 Active insulin pen needle (UltiCare Short Pen [place]) 31G X 8 mm miscIndications: Type 2 [...] hyperglycemia, with long-term current use of insulin ([facility]) USE DIRECTED TO TEST BLOOD SUGAR THREE TIMES DAILY 50 strip 11 12/10/19 24 Active atorvastatin (Lipitor) 10 MG tabletIndication s:Type 2 diabetes mellitus with hyperglycemia, with long-term current use of insulin ([facility]) TAKE 1 TABLET BY MOUTH EVERY DAY 90 tablet 3 12/18/19 24 Active B Complex-C (b complex-vitamin c) tablet Take 1 tablet by mouth Once per day. 10/29/19 24 Active empagliflozin (Jardiance) 25 MGIndications:Ty pe 2 diabetes mellitus with hyperglycemia, with long-term current use of insulin ([facility]) Take 1 tablet (25 mg) by mouth Once per day. 30 tablet 11 01/01/20 24 025 Active Continuous Glucose Sensor (FreeStyle Zulay 2 Sensor) miscIndications: Type 2 diabetes mellitus with hyperglycemia, with long-term current use of insulin ([facility]) Use as directed 2 each 11 01/15/20 24 Active lisinopril 20 MG tabletIndication s:Primary [...] with long-term current use of insulin ([facility]) TAKE 1 CAPSULE BY MOUTH TWICE DAILY 60 capsule 08/22/19 25 Active TRUEplus Lancets 33G miscIndications: Type 2 diabetes mellitus with hyperglycemia, with long-term current use of insulin ([facility]) TEST BLOOD SUGAR THREE TIMES DAILY 100 each 11 09/16/19 25 Active FreeStyle lancets 1 each by Other route 3 times daily. Check blood glucose 100 each 02/19/20 24 025 Discontinued gabapentin (Neurontin) 400 MG capsuleIndicatio ns:Type 2 diabetes mellitus with diabetic polyneuropathy, with long-term current use of insulin ([facility]) TAKE 1 CAPSULE BY MOUTH TWICE DAILY 60 capsule 02/ 025 Discontinued Active Problems Problem Noted Date [...] AM EDT): - seen by Dr. Kimball, [facility], for diplopia. - Dx [...] 2 diabetes mellitus 10/10/2022 Assessment & Plan (08/19/2024 12:08 PM EDT): - A1c 10.8% on 08/19/24 - A1C 9.6% on 04/13/24, no improvement from 9.4% on 11/18/23 - Continue basal insulin: Tresiba 56 units (Pt has not been taking Tresiba) - Continue bolus insulin: Humalog pen - [...] sooner prn Last eye exam: Nov 2022, [facility], Mild nonproliferative diabetic retinopathy without macular edema. Up coming appt on October 2024 Last foot exam: 11/18/23 Last microalbumin test: July 2024 Last lipid profile: 06/18/24 Last dental exam: overdue Assessment & Plan (04/20/2024 6:45 AM EST): [...] sooner prn Last eye exam: Nov 2022, [facility], Mild nonproliferative diabetic retinopathy [...] sooner prn Last eye exam: Nov 2022, [facility], Mild nonproliferative diabetic retinopathy [...] (obstructive sleep apnea) 07/22/2022 Assessment & Plan (08/19/2024 12:09 PM EDT): - Sleep study on 11/26/21 shows ALEC and periodic limb movement disorder - It recommended CPAP titration study, but pt has not had one yet. Will reorder sleep study - continue working towards healthy weight Assessment & Plan (04/14/2024 4:27 AM EST): [...] mellitus 07/10/2022 Hypertension 07/10/2022 Assessment & Plan (08/19/2024 8:59 AM EDT): - Goal BP < 140/90 [...] up in 3 mo Assessment & Plan (04/14/2024 4:27 AM EST): [...] if any problem arises - Referred to [facility] Assessment & Plan (10/14/2022 5:49 PM EDT): [...] if any problem arises - Referred to [facility] Assessment & Plan (07/22/2022 5:30 PM EDT): [...] arises Kidney stone 07/03/2016 Assessment & Plan (08/19/2024 8:59 AM EDT): - s/p ESWL on 02/25/2019. -Last Kidney Stone on 07/23/21, pt was given Tamsulosin, Prednisone and Oxycodone. -Encouraged to continue adequate hydration, 2L / day Assessment & Plan (11/18/2023 4:21 PM EDT): [...] disease management Hypertriglyceridemia 12/31/2011 Assessment & Plan (08/19/2024 1:09 PM EDT): - currently prescribed atorvastatin 10 mg at bedtime - Last lipid profile: 06/18/24 - Continue lifestyle modification. Assessment & Plan (04/14/2024 4:29 AM EST): [...] Encounters Date Type Department Care Team Description 09/14/2024 Refill [facility] [address] [place] [address] Lisa Guerrero MD Type 2 diabetes mellitus with hyperglycemia, with long-term current use of insulin ([facility]) 09/02/2024 Orders Only [facility] [address] [place] [address] Hanna Moyer MD Type 2 diabetes mellitus with hyperglycemia, with long-term current use of insulin (CMS/HCC) (Primary Dx); Primary hypertension 09/02/2024 Telephone [facility] [address] [place] [phone] Hanna Moyer MD 08/21/2024 Refill [facility] [address] [place] [address] Hanna Moyer MD Type 2 diabetes mellitus with diabetic polyneuropathy, with long-term current use of insulin (CMS/HCC) 08/19/2024 11:15 AM EDT Office Visit [facility] [address] [place] [phone] Hanna Moyer MD Hypertriglyceridemia (Primary Dx); Primary hypertension; Type 2 diabetes mellitus with hyperglycemia, with long-term current use of insulin (CMS/[facility]); Chronic left shoulder pain; ALEC (obstructive sleep apnea) 08/19/2024 Travel 08/18/2024 Telephone [facility] [address] [place] [phone] Hanna Moyer MD CHART PREP 08/11/2024 Orders Only [facility] [address] [place] [phone] Hanna Moyer MD Chronic left shoulder pain (Primary Dx) 07/30/2024 Telephone [facility] [address] [place] [phone] Hanna Moyer MD 07/29/2024 Telephone [facility] [address] [place] [phone] Hanna Moyer MD Insurance 07/23/2024 Orders Only [facility] [address] [place] [address] Hanna Moyer MD 07/20/2024 Telephone [facility] [address] [place] [address] Hanna Moyer MD chart prep 06/19/2024 Population Health Risk Score [facility] ([facility]) Department [address] [place] [phone] Provider, Population Health Generic 06/18/2024 Orders Only [facility] [address] [place] [address] Hanna Moyer MD 06/17/2024 Telephone [facility] [address] [place] [address] Nallely Alfredo, validation analyst Orders from Last 3 Months Immunizations Immunization Administration Dates Next Due Hep B, adult [...] Sign Reading Time Taken Comments Blood Pressure 150/100 08/19/2024 11:54 AM EDT Pulse 90 08/19/2024 11:20 AM EDT Temperature 36.1 ??C (96.9 ??F) 08/19/2024 11:20 AM E DT Respiratory Rate 20 08/19/2024 11:20 AM EDT Oxygen Saturation 94% 08/19/2024 11:20 AM EDT Inhaled Oxygen Concentration - - Weight 108 kg (238 lb 9.6 oz) 08/19/2024 11:20 A M EDT Height 157.5 cm (5' 2 ) 08/19/2024 11:20 AM EDT Body Mass Index 43.64 08/19/2024 11:20 AM EDT Plan of Treatment Upcoming Encounters Date Type Department Care Team (Late st Contact Info) Description 09/25/2024 3:00 PM EDT Office Visit [facility] [address] [place] [address] Praveen Sanchez MD [address] [place] [address] 10/16/2024 9:00 AM EDT Office Visit [facility] [address] [place], [place] [phone] Jigar, Marissa, OD [address] [place] [address] Health Maintenance Due Date Last Done Comments Family Planning (PISQ) 1997 Eye Exam 09/03/2024 09/04/2023, 08/07, 09/04/2023, Additional history exists Depression Monitoring 10/12/2024 04/14/2024, 025 SDOH Screening 11/04/2024 11/05/2023 Diabetes: Foot Exam 11/17/2024 11/18/2023, 11/18/2023, 11/18/2023, Additional history exists Diabetes: Hemoglobin A1C 11/19/2024 025, 04/14/2024, 11/19/2023, Additional history exists Alcohol/Substance Use Screening 04/14/2025 04/14/2024 Lipid Panel 06/18/2025 06/18/2024, 08/07, 01/07/2023, Additional history exists Diabetes: Urine Protein Screening 07/23/2025 07/23/2024, 06/18/2024, 11/18/2023, Additional history exists Disability Screening 08/19/2025 08/19/2024 Tobacco Screening 08/28/2025 08/28/2024 DTaP/Tdap/Td Vaccines (4 - Td or Tdap) [...] patient's age to complete this topic Meningococcal B Vaccine Aged Out No l onger eligible based on patient's age to complete [...] Author Blood Pressure < 140/90 Blood Pressure 150/100(08/19 11:54 AM EDT) No Valentín Anguiano, Sean Hemoglobin A1c < 7 Result Component 10.8(08/20/19 11:36 AM EDT) No Valentín Anguiano PharmD Procedures Procedure Name Priority Date/Time Associated Diagnosis Comments POCT GLYCATED HEMOGLOBIN, TOTAL Routine 08/19/2024 11:36 AM EDT Type 2 diabetes mellitus with hyperglycemia, with long-term current use of insulin ([facility]) POCT GLUCOSE Routine 08/19/2024 11:28 AM EDT Type 2 diabetes mellitus with hyperglycemia, with long-term current use of insulin (CMS/HCC) XR SHOULDER 2+ VIEWS LEFT Routine 08/12/2024 12:16 PM EDT Chronic left shoulder pain ALBUMIN, RANDOM URINE W/CREATININE Routine 07/23/2024 1:19 PM EDT T-SPOT(R).TB Routine 06/18/2024 8:38 AM EDT MEASLES, [...] hyperglycemia, with long-term current use of insulin (CMS/[facility]) Hypertriglyceridem ia THYROID PEROXIDASE ANTIBODIES Routine 06/18/2024 8:38 AM EDT Thyromegaly HEPATITIS C AB W/REFL TO HCV RNA, QN, PCR Routine 01/07/2023 11:35 AM EDT Type 2 diabetes mellitus with diabetic polyneuropathy, with long-term current use of insulin (CMS/HCC) HIV 1/2 ANTIGEN/ANTIBODY, FOURTH GENERATION W/RFL Routine 04/19/2021 9:19 AM EST from Last 3 Months or Most Recently Relevant to Health Maintenance Results * (ABNORMAL) POCT HGB A1C (08/19/2024 11:36 AM EDT) Hemoglobin A1C 10.8(A) 4.0 - 6.0 % QC Media Lot # [id number] Lot# Expiration Date [id number] Blood 08/19/2024 11:3 6 AM EDT Hanna Moyer MD POINT OF CARE TEST ENTER/EDIT OR DERABLES Final Result * POCT Glucose (08/19/2024 11:28 AM EDT) Pathologist [facility] Glucose Blood, POC 192 60 - 200 mg/dL QC Media Lot # [id number] Lot# Expiration Date 142,[id number] Blood Capillary blood specimen / Unknown 08/19/2024 11:28 AM EDT Hanna Moyer MD POINT OF CARE TEST ENTER/EDIT OR DERABLES Final Result * XR Shoulder 2+ Views Left (08/12/2024 12:16 PM EDT) Anatomical Region Laterality Modality Upper Extremities, Shoulder Left Radi ographic Imaging 08/12/2024 12:1 6 PM EDT Narrative 08/12/2024 12:45 PM EDT ?[facility] ?[address] ?[place] [address] ?XRay Report ? Signed ? Patient: Changlaura Moore,Zeb ?MR#: [id number] ?? [id number] ? : 1980 ?Acct:[id number] ? Age/Sex: 43 / M ?ADM Date: 05/07/25 ? Loc: HO.HHCX ? Attending Dr: Hanna Moyer MD ? Ordering Physician: Hanna Moyer MD ?? Date of Service: 08/12/24 ?? Procedure(s): XR shoulder LT min 2V ?? Accession Number(s): [id number] ? cc: Hanna Moyer MD ? EXAMINATION: ?? XR SHOULDER, LEFT ? CLINICAL INFORMATION: ?? left shoulder pain, positive impingement sign ? COMPARISON: ?? None available. ? TECHNIQUE: ?? AP external rotation, Grashey, scapular Y, and axillary views of the ?? left shoulder. ? FINDINGS: ?? No acute cortical disruption or malalignment. No lytic or blastic ?? lesions. No metallic or radiopaque foreign body. No subcutaneous ?? emphysema. ? XR/XR shoulder LT min 2V ?? IMPRESSION: ?? Normal x-ray left shoulder. ? Electronically signed by: ??Atul Hollis MD ??08/12/2024 12:43 PM ?? EDT RP ? Dictated By: ?Atul Menezes MD ? Signed By: ?<Electronically signed by Atul Alfredo MD in OV> ? 08/12/24 1243 ? DD/ 1216 ? TD/TT: 08/12/24 1236 ? Ski Maker: ? Procedure Note Lennie Harris - 08/12/[address] [address] XRay Report Signed Patient: Zeb TopeteMR#: [id number] : 1980Acct:[id number] Age/Sex: 43 / MADM Date: 08/12/24 Loc: HO.HHCX Attending Dr: Hanna Moyer MD Ordering Physician: Hanna Moyer MD Date of Service: 08/12/24 Procedure(s): XR shoulder LT min 2V Accession Number(s): [id number] cc: Hanna Moyer MD EXAMINATION: XR SHOULDER, LEFT CLINICAL INFORMATION: left shoulder pain, positive impingement sign COMPARISON: None available. TECHNIQUE: AP external rotation, Grashey, scapular Y, and axillary views of the left shoulder. FINDINGS: No acute cortical disruption or malalignment. No lytic or blastic lesions. No metallic or radiopaque foreign body. No subcutaneous emphysema. XR/XR shoulder LT min 2V IMPRESSION: Normal x-ray left shoulder. Electronically signed by: Atul Hollis MD 08/12/2024 12:43 PM EDT RP Dictated By: Atul Menezes MD Signed By: <Electronically signed by Atul Alfredo MDin OV> 08/12/24 1243 DD/ 1216 TD/TT: 08/12/24 1236 Ski Maker: Hanna Moyer MD IMG XR PROCEDURES Final Result * Albumin, Random Urine W/Creatinine (07/23/2024 1:19 PM EDT) Only the most recent of2 resultswithin the time period is included. Creatinine, Urine 75.68 mg/dL [facility] Microalbumin Urine 19.0 mg/L [facility] Microalbum Creatinine Ratio Ur 25.1 <30 ug/mg cr [facility] Comment:Albumin/Creatinine R atio Reference Ranges: Normal: < 30 ug/mg creatinine Microalbuminuria: 30 - 300 ug/mg creatinineClinical Albuminuria: > 300 ug/mg creatinine 07/23/2024 1:19 PM EDT 07/23/2024 4:13 PM EDT Hanna Moyer MD LAB URINE ORDERABLES Final Resul t [facility] [address] [place] [phone] * T-SPOT??.TB (06/18/2024 8:38 AM EDT) T Spot TB Negative Negative [facility] Comment:A negative test resu lt [...] as aquantitative test. TS PANEL A 0 [facility] TS PANEL B 0 [facility] Negative Control Passed [facility] Positive Control Passed [facility] Comment:For additional infor karthikeyan, please refer tohttp://education.TopFloor/faq/XOH335(This link is being provided for informational/educational purposes only.)THIS TEST WAS PERFORMED AT:[employer] [id number] [place] [phone] W. MASON,MD,PHD 06/18/2024 8:38 AM EDT 06/18/2024 11:15 AM EDT us Hanna Moyer MD LAB BLOOD ORDERABLES Final Resul t [facility] [address] [place] [phone] * Measles, Mumps, and Rubella (MMR) Antibodies??(IgG) Panel, Immune Status (06/18/2024 8:38 AM EDT) Mumps Virus IgG Antibody 235.00 AU/mL [facility] Comment:AU/mL Interpretation ------- <9.00 Not consistent with immunity9.00-10.99 Equivocal>10.99 Consistent with immunityThe presence of mumps IgG antibody suggests immunizationor past or current infection with mumps virus. Rubella IgG Antibody 1.36 Index [facility] Comment:Index Interpretation ----- <0.90 Not consistent with immunity 0.90-0.99 Equivocal > or = 1.00 Consistent with immunityThe presence of rubella IgG antibody suggestsimmunization or past or current infection withrubella virus.THIS TEST WAS PERFORMED AT:[employer] [place] [phone] DODSON MD Rubeola IgG (Measles) >300.00 AU/mL [facility] Comment:AU/mL Interpretation ----- <13.50 Not consistent with uprvxskj62.50-16.49 Equivocal>16.49 Consistent with immunityThe presence of measles IgG suggests immunization orpast or current infection with measles virus.For additional information, please refer tohttp://education.Double Encore/faq/GUP673(This link is being provided for informational/educational purposes only.) 06/18/2024 8:38 AM EDT 06/18/2024 11:15 AM EDT us Hanna Moyer MD LAB BLOOD ORDERABLES Final Resul t [facility] [address] [place] [phone] * (ABNORMAL) Lipid Panel with Reflex to Direct LDL (06/18/2024 8:38 AM EDT) Triglycerides 112 <150 mg/dL [facility] Comment:Desirable Triglyceri de: less than 150 mg/dLBorderline High Triglyceride 150-199 mg/dLHigh Triglyceride: 200-499 mg/dLVery High Triglyceride: greater than or equal to 5OO mg/dL Cholesterol 129 <200 mg/dL [facility] Comment:Desirable Cholestero l: less than 200 mg/dLBorderline High Cholesterol: 200-239 mg/dLHigh Cholesterol: greater than 239 mg/dL LDL Cholesterol Calculated 72 <100 mg/dL [facility] Comment:Desirable LDL: less than 100 mg/dLNear Optimal/Above Optimal LDL: 110- 129 mg/dLBorderline High LDL: 130-159 mg/dLHigh LDL: 160-189 mg/dLVery High LDL: greater than or equal to 190 mg/dL HDL Cholesterol 35(L) >40 mg/dL [facility] Comment:Desirable HDL: great er than 40 mg/dL Note: This HDL assay may give artificially low results in patients with liver disease. Blood 06/18/2024 8:38 AM EDT 06/18/2024 11:15 AM EDT Hanna Moyer MD LAB BLOOD ORDERABLES Final Resul t Performing Organization Address [facility] Co de Phone Number [facility] [address] [place] [phone] * Thyroid Peroxidase Antibodies (06/18/2024 8:38 AM EDT) Thyroid Peroxidase Antibodies 1 <9 IU/mL [facility] Comment:THIS TEST WAS PERFOR MED AT:[employer] [address] [phone] DODSON MD Blood Venous blood specimen / Unknown 06/18/2024 8:38 AM EDT 06/18/2024 11:15 AM EDT Hanna Moyer MD LAB BLOOD ORDERABLES Final Resul t Performing Organization Address [facility] de Phone Number [facility] [address] [place] [phone] * Varicella zoster antibody, IgG (06/18/2024 8:38 AM EDT) Varicella IgG Antibody 4.51 S/CO [facility] Comment:Signal to Cut-off S/ CO Interpretation --------- <1.00 Negative - Antibody not [...] Antibody Immunity Screen, ACIF.THIS TEST WAS PERFORMED AT:[employer] [place] [phone] DODSON MD 06/18/2024 8:38 AM EDT 06/18/2024 11:15 AM EDT us Hanna Moyer MD LAB BLOOD ORDERABLES Final Resul t [facility] [address] [place] [phone] * (ABNORMAL) Comprehensive Metabolic Panel (06/18/2024 8:38 AM EDT) Sodium 138 135 - 145 mmol/L [facility] Potassium 3.6 3.3 - 5.1 mmol/L [facility] Chloride 106 96 - 108 mmol/L [facility] Carbon Dioxide 25 22 - 29 mmol/L [facility] Anion Gap 11(L) 12 - 20 [facility] Urea Nitrogen (BUN) 18(H) 9 - 16 mg/dL [facility] Creatinine, Serum 0.77 0.5 - 1.4 mg/dL [facility] Estimated Glomerular Filt Rate >60 [facility] Comment:Chronic Kidney Disea se: Estimated GFR < 60 mL/min/1.56h6[place] Kidney Disease: Estimated GFR < 15 mL/min/1.73m2 Glucose 135(H) 60 - 115 mg/dL [facility] Calcium 9.2 8.4 - 10.2 mg/dL [facility] Bilirubin, Total 0.4 0.0 - 1.0 mg/dL [facility] Aspartate Amino Transferase 24 5 - 37 U/L [facility] Alanine Aminotransferase 25 0 - 40 U/L [facility] Total Protein 7.9 6.5 - 8.0 g/dL [facility] Albumin Level 4.0 3.5 - 5.0 g/dL [facility] Alkaline Phosphatase 78 39 - 117 U/L [facility] Blood Venous blood specimen / Unknown 06/18/2024 8:38 AM EDT 06/18/2024 11:15 AM EDT Hanna Moyer MD LAB BLOOD ORDERABLES Final Resul t Performing Organization Address City/[facility] Co de Phone Number [facility] [address] [place] [phone] * Hepatitis C Antibody with Reflex to HCV, RNA, Quantitative, Real-Time PCR (01/07/2023 11:35 AM EDT) Hepatitis C Antibody Nonreactive Nonreactive [facility] Comment:Antibodies to HCV no t detected; does not exclude early acuteHCV infection. Blood Venous blood specimen / Unknown 01/07/2023 11:35 AM EDT 01/07/2023 1:12 PM EDT Hanna Moyer MD LAB BLOOD ORDERABLES Final Resul t Performing Organization Address [facility] Co de Phone Number [facility] [address] [place] [phone] * HIV 1/2 ANTIGEN/ANTIBODY,FOURTH GENERATION W/RFL [...] ? For additional information please refer to http://education.Support Your App.Kleermail/faq/AOG028 (This link is being provided for informational/ educational purposes only.) ? The performance of this assay has not been clinically validated in patients less than 2 years old. ?? 04/19/2021 9:19 AM EST Hanna Moyer MD LAB BLOOD ORDERABLES Final Resul t [facility] [address] from Last 3 Months or Most Recently Relevant to Health Maintenance Insurance , [address] [place] [address] Care Teams Hair Machine Operator Relationship Specialty Start Date End Date Hanna Moyer MD [address] [place] [address] [place] [address] PCP - General Family Medicine 10/08/11 Valentín Anguiano, LeannD [address] [place] [address] Pharmacist Internal Medicine 01/18/23
== END ==
LOC: HO.SL 20:30
PROVIDERS: PCP Family Medicine; Visit Provider Family Medicine
DX: Z13.89 Encounter for screening for other disorder (principal)

== ENCOUNTER 2025-02-25 09:41 | Outpatient (AMB) | payer OTHER, SELFPAY ==
--- NOTE | 2025-02-25 09:42 | A.OFFVIS_ITS ---
Vital Signs 02/25/25 09:43 Height 5 ft 2 in Weight 214 lb 4 oz BMI 39.2 BP 140/84 H Blood Pressure Location Rt brachial Position Sitting Pulse 82 Pulse Source Pulse Oximeter Pulse Oximetry (%) 96 Oxygen Delivery Method Room Air Intake Visit Reasons: ENP-ALEC Intake Note: Patient presents [employer] ALEC. Hard time falling/staying sleep. Snoring/apnea/gasping. Goes to bed at 12-1am wakes up at 5-6am. Wakes up 2-3 times a night. Naps. No headaches. In lab 1-2years ago(shanda). Allergies exenatide Allergy (Unknown, Verified 02/25/25 09:47) Unknown HPI Comments Details: 44 year old male presetns for an evaluation of sleep apnea by his pcp, Rakesh Lopez with [facility]. 09/2024 PSG shows insufficient sleep, with 27% of sleep in N2. He smokes weed to help induce sleep, however unable to fall asleep until 2am then he is exhausted in the mornings at work. He has not tried any sleep aides and drinks 6pack of beer once a week and that helps him to sleep for >5hours. He snores loudly, gasps for air, grinds his teeth, denies morning headaches, acid reflux. He moves his feet alot in sleep, has numbness, tingling and burning from his r. lower back to the calve and thigh. He diagnosed with peripheral neuropathy and takes 800mg gabapentin daily. He loses his balance when he is taking a shower and notices when washing feet he is about to fall. He denies denies morning headaches, acid reflux, abnormal movements in sleep, and parasomnias. [facility] Medical History Obesity Hypertriglyceridemia Anemia Asthma Kidney stone Mild nonproliferative diabetic retinopathy of both eyes without macular edema Diabetic polyneuropathy Restless leg syndrome Acute neck pain Petechiae Thyromegaly Chronic right hip pain Mood disorder Rash Chronic left shoulder pain Diabetes mellitus, type 2 Surgical History History of ankle surgery Family History Father Cancer Mother Cancer Maternal Grandmother Diabetes mellitus Social History Alcohol intake: never Patient Tobacco Use Status: Never used Tobacco Physical Exam Vital Signs: Last Vital Signs Pulse 82 02/25/25 09:43 BP 140/84 H 02/25/25 09:43 Pulse Ox 96 02/25/25 09:43 Oxygen Delivery Method Room Air 02/25/25 09:43 BMI result Body Mass Index 39.2 Const General: cooperative and comfortable Nutritional Appearance: average body habitus Orientation/consciousness: patient oriented x3 HEENT Face and sinus: Yes face symmetric Teeth and gingiva: other (mallampti score is 3) Eyes Pupils: Equal, round and reactive pupils present Neck Neck: Yes full ROM Resp Effort & Inspection: normal respiratory effort and able to speak in complete sentences Neuro General: patient oriented x3 and moves all extremities Cranial nerves: Yes Equal, round and reactive pupils present, Yes Normal accommodation reflex present, Yes Normal facial strength present, Yes Ability to bilaterally rotate head present and Yes Ability to bilaterally elevate shoulders present Cognition (Neuro): normal cognition Gait exam (Neuro): Normal gait present Motor exam (neuro): 5/5 motor strength present throughout and Normal motor muscle tone present throughout Psych Appearance: grossly normal Thought process: Normal thought process present Assessment & Plan Assessment & Plan (1) ALEC (obstructive sleep apnea): Code(s): G47.33 - Obstructive sleep apnea (adult) (pediatric) Category: Medical (2) Excessive daytime sleepiness: Code(s): G47.19 - Other hypersomnia Category: Medical Plan HST r/o alec Labs to evaluate RLS - / peripheral neuropathy. f/u in 3 months Orders: Orders RT home sleep study Today G47.19 - Other hypersomnia Patient Instructions: Please complete the following fasting labs to rule out deficiencies. CBC/CMP/ B12/ Vit D/ TSH/ Homocysteine and MMA/ Ferritin. Sleep Hygiene provided: set a scheduled bedtime and wake time to help regulate the circadian rhythm and balance the release of pituitary hormones. Sleep in a dark room, temperatures below 68 degrees, and no devices n bed. Limit caffeinated products 6 hours prior to bed, and limit fluids 2-4 hours prior to bed. Gentle night yoga, diffusing essential oils, and playing soft music can be relaxing. Coding Level of Care Code New Pt Level 4 (06663) Diagnoses ALEC (obstructive sleep apnea) G47.33 Excessive daytime sleepiness G47.19
[2025-02-25 09:43] VITALS: BP 140/84; PULSE 82; O2SAT 96; BMI 39.2
--- OUTSIDE RECORDS SUMMARY | 2025-02-25 13:40 | XMS_ITS | Encounter Summary ---
Author Organization [employer] Address [address] [facility] [address] [place] [address] Care Team Providers Care Floating Labor Gang Supervisor Name Role Phone Hanna Moyer MD Primary Care Provider [phone] Valentín Anguiano PharmD Unavailable [phone] Reason for Referral * Consultation (Routine) - Closed Specialty Diagnoses / Procedures Referred By Contguillermina t Referred To Contact Physical Therapy Diagnoses Chronic left shoulder pain Hanna Moyer MD [address] [place] [address] Phone: tel: fax: [facility] [address] [place] [address] Phone: tel: fax: Referral ID Status Reason Start Date Expiration Date V isits Requested Visits Authorized [id number] Closed Specialty Services Required 10/01/2024 10/01/2025 1 1 Encounter Details Date Type Department Care Team (Late st Contact Info) Description 10/01/2024 Orders Only [facility] [address] [place], [place] [phone] Hanna Moyer MD [address] [place], [place] [phone] Chronic left shoulder pain (Primary Dx) Social History Tobacco Use Types Packs/Day Years [...] Care Team (Late st Contact Info) Description 04/16/2025 2:00 PM EST Medication Management [facility] [address] [place] [address] Valentín Anguiano, PharmD [address] [place] [address] 04/19/2025 10:00 AM EST Office Visit [facility] [address] [place] [address] Marissa Kimball, OD [address] [place] [address] Scheduled Referrals Name Type Priority Associated Diagnoses Orde r Schedule Referral to Physical Therapy Outpatient Referral Routine Chronic left shoulder pain Expected: 10/01/2024 (Approximate), Expires: 10/01/2025 documented as of this encounter Goals Goal Patient Goal Type Associated Problems Recent Progress Patient-Stated? Author Blood Pressure < 140/90 Blood Pressure 125/78(2024 1:53 PM EDT) No Valentín Anguiano PharmD Hemoglobin A1c < 7 Result Component 7(01/07/2025 9:38 AM EDT) No Valentín Anguiano PharmD documented as of this encounter Visit Diagnoses Diagnosis Chronic left shoulder pain- Primary Pain in joint, shoulder region documented in this encounter Additional Health Concerns Assessment Noted Time PHQ-9 Depression Total Score: 14 025 12:01 PM EST documented as of this encounter Care Teams Floating Labor Gang Supervisor Relationship Specialty Start Date End Date Hanna Moyer MD [address] [place] [address] PCP - General Family Medicine 10/08/11 Valentín Anguiano PharmD [address] [place] [address] Pharmacist Internal Medicine 01/18/23 documented as of this encounter
--- OUTSIDE RECORDS SUMMARY | 2025-02-25 13:40 | XMS_ITS | Encounter Summary ---
Author Organization [employer] Address [address] [facility] [address] [place] [address] Care Team Providers Care Temporary Office Assistant Name Role Phone Hanna Moyer MD Primary Care Provider [phone] Valentín Anguiano PharmD Unavailable [phone] Reason for Referral * Consultation (Routine) - Authorized Specialty Diagnoses / Procedures Referred By Linda johnson Referred To Contact Vascular Surgery Diagnoses Venous stasis dermatitis Hanna Moyer MD [address] [place] [address] Phone: tel: fax: [facility] Referral ID Status Reason Start Date Expiration Date Visits Requested Visits Authorized [id number] Authorized Specialty Services Required 12/28/2024 12/28/2025 1 1 Encounter Details Date Type Department Care Team (Late st Contact Info) Description 12/28/2024 Orders Only [facility] [address] [place] [address] Hanna Moyer MD [address] [place], [place] [phone] Venous stasis dermatitis (Primary Dx) Social History Tobacco Use Types [...] housing situation today? I have kamini daniels 11/16/[address] you li ve. Do you have problems with any of the following? None of the above 11/16/2024 Food Insecurity Answer Date Recorded Within the past 12 months, y ou worried that your food would run out before you got money to buy more: Never True 11/16/2024 Within the past 12 months,th e food you bought just didn't last and you didn't have enough money to get more: Never True 02/2025 Transportation Answer Date Recorded In the past 12 months, has l ack of transportation kept you from medical appts, meetings, work or from getting things needed for daily living? No 11/16/2024 Utilities Answer Date Recorded In the past 12 months, has t he electric, gas, oil or water company threatened to shut off services in your home? No 11/16/2024 Depression Answer Date Recorded Patient Health Questionnaire-2 Score 5 04/14/2024 Internet Access Answer Date Recorded Internet Access Q1 Yes 11/16/2024 Internet Access Q2 Not on file 11/16/2024 Sex and Gender Information Value Date Recorded Sex Assigned at Male 02/05/2022 10:14 AM EDT Legal Sex Male 10:14 AM EDT Gender Identity Male 02/05/2022 10:14 AM EDT Sexual Orientation Don't know 02/05/2022 10 :14 AM EDT documented as of this encounter Plan of Treatment Upcoming Encounters Date Type Department Care Team (Late st Contact Info) Description 04/16/2025 2:00 PM EST Medication Management [facility] [address] [place] [address] Valentín Anguiano, PharmD [address] [place] [address] 04/19/2025 10:00 AM EST Office Visit [facility] [address] [place] [address] Marissa Kimball, OD [address] [place] [address] Scheduled Referrals Name Type Priority Associated Diagnoses Orde r Schedule Referral to Vascular Surgery Outpatient Referral Routine Venous stasis dermatitis Expected: 12/28/2024 (Approximate), Expires: 12/28/2025 documented as of this encounter Goals Goal Patient Goal Type Associated Problems Recent Progress Patient-Stated? Author Blood Pressure < 140/90 Blood Pressure 125/78(2024 1:53 PM EDT) No Valentín Anguiano PharmD Hemoglobin A1c < 7 Result Component 7(01/07/2025 9:38 AM EDT) No Valentín Anguiano PharmD documented as of this encounter Visit Diagnoses Diagnosis Venous stasis dermatitis- Primary documented in this encounter Additional Health Concerns Assessment Noted Time PHQ-9 Depression Total Score: 14 025 12:01 PM EST documented as of this encounter Care Teams Temporary Office Assistant Relationship Specialty Start Date End Date Hanna Moyer MD [address] [place] [address] PCP - General Family Medicine 10/08/11 Valentín Anguiano PharmD [address] [place] [phone] Pharmacist Internal Medicine 01/18/23 documented as of this encounter
--- OUTSIDE RECORDS SUMMARY | 2025-02-25 13:41 | XMS_ITS | Clinical Summary ---
Author Organization [employer] Address [address] [facility] [address] [place] [address] Care Team Providers Care Director [employer] Name Role Phone Hanna Moyer MD Primary Care Provider [phone] Valentín Anguiano PharmD Unavailable [phone] Allergies Active Allergy Reactions Criticality Noted Date Comments Exenatide 10/13/2015 Medications Blood Pressure Monitor kit Check blood pressure once daily and as needed 1 kit 3 Active Continuous Blood Gluc Metrology Specialist (FreeStyle Zulay 2 Sargents) device Use as directed 1 each 1 3 Active simethicone (Mylicon) 125 MG chewable tablet CHEW 1 TABLET BY MOUTH 4 TIMES A DAY IN THE MORNING, AT NOON, IN THE EVENING, AND AT BEDTIME NEEDED FOR GAS 30 tablet 3 Active B Complex-C (b complex-vitamin c) tablet Take 1 tablet by mouth Once per day. 4 Active lisinopril 20 MG tabletIndication s:Primary hypertension TAKE 1 TABLET BY MOUTH EVERY MORNING 90 tablet 3 4 Active hydrocortisone 1 % cream Apply topically 2 times daily. 20 g 1 5 Active gabapentin (Neurontin) 400 MG capsuleIndicatio ns:Type 2 diabetes mellitus with diabetic polyneuropathy, with long-term current use of insulin (HCC) TAKE 1 CAPSULE BY MOUTH TWICE DAILY 60 capsule 5 Active TRUEplus Lancets 33G miscIndications: Type 2 diabetes mellitus with hyperglycemia, with long-term current use of insulin (HCC) TEST BLOOD SUGAR THREE TIMES DAILY 100 each 11 5 Active hydrOXYzine HCl (Atarax) 25 MG tablet Take 1 tablet by mouth before sleep study. May take additional tablet if 1 tablet is inadequate. 2 tablet 5 Active triamcinolone (Kenalog) 0.1 % creamIndications :Venous stasis dermatitis Apply topically if needed in the morning and at bedtime (pain and swelling). 80 g 1 5 Active glucose 4 g chewable tabletIndication s:Type 2 diabetes mellitus with hyperglycemia, with long-term current use of insulin ([facility]) Chew 4 tablets (16 g) if needed for low blood sugar. 30 tablet 5 026 Active Alcohol Swabs (Alcohol Prep) 70 % padsIndications: Type 2 diabetes mellitus with hyperglycemia, with long-term current use of insulin ([facility]) Use with insulin 4 times daily 100 each 5 Active insulin lispro (HumaLOG KWIKPEN) 100 UNIT/ML injectionIndicat ions:Type 2 diabetes mellitus with hyperglycemia, with long-term current use of insulin ([facility]) Inject 20 units under the skin three times daily before meals 15 mL 5 Active insulin pen needle (UltiCare Short Pen [place]) 31G X 8 mm miscIndications: Type 2 diabetes mellitus with hyperglycemia, with long-term current use of insulin ([facility]) USE FOUR TIMES DAILY 100 each 5 Active insulin glargine (Lantus SoloStar) 100 UNIT/ML penIndications:T ype 2 diabetes mellitus with hyperglycemia, with long-term current use of insulin ([facility]) Inject 48 units under the skin once daily 15 mL 5 5 Active atorvastatin (Lipitor) 10 MG tabletIndication s:Type 2 diabetes mellitus with hyperglycemia, with long-term current use of insulin ([facility]) TAKE 1 TABLET BY MOUTH EVERY DAY 90 tablet 5 Active amLODIPine (Norvasc) 5 MG tabletIndication s:Primary hypertension Take 1 tablet (5 mg) by mouth in the morning. 90 tablet 3 5 Active empagliflozin (Jardiance) 25 MGIndications:Ty pe 2 diabetes mellitus with hyperglycemia, with long-term current use of insulin ([facility]) Take 1 tablet (25 mg) by mouth Once per day. 30 tablet 11 5 026 Active glucose blood (FreeStyle Precision Kane Test) test stripIndications :Type 2 diabetes mellitus with hyperglycemia, with long-term current use of insulin ([facility]) USE DIRECTED TO TEST BLOOD SUGAR THREE TIMES DAILY as needed for hypoglycemia or sensor failure. 50 strip 11 5 Active Continuous Glucose Sensor (FreeStyle Zulay 2 Plus Sensor) miscIndications: Type 2 diabetes mellitus with hyperglycemia, with long-term current use of insulin (HCC) 1 each every 15 days. Scan sensor every 8 hours to check blood sugars as directed. Change sensor every 15 days. 2 each 5 5 Active Active Problems Problem Noted Date Diagnosed Date Depression 01/18/2025 Assessment & Plan (01/29/2025 10:24 AM EDT): - PHQ-9 score 9 on 01/18/2025 and ALMA-7 score 13 on 04/14/2024 - Patient declines [facility] referral, but is aware of its rerource Chronic left shoulder pain 04/20/2024 Rash 04/20/2024 [...] check lab, including peroxidase antibody Petechiae 11/18/2023 Assessment & Plan (01/29/2025 10:15 AM EDT): - seen in Derm clinic, and was diagnosed with venous stasis dermatitis. Recommended to be referred to vascular specialist. - Upcoming appointment with vascular specialist on 02/23/2025 Diplopia 09/26/2023 Assessment & Plan (11/18/2023 11:07 AM EDT): - seen by Dr. Kimball, [facility], for diplopia. - Dx left [...] Restless leg syndrome 10/14/2022 Assessment & Plan (01/20/2025 5:25 PM EDT): - consider trial of ropinirole - continue judicious use of gabapentin since he has diabetic neuropathy Assessment & Plan (11/18/2023 4:19 PM EDT): - consider trial of ropinirole - continue judicious use of gabapentin since he has diabetic neuropathy Assessment & Plan (10/14/2022 5:46 PM EDT): - consider trial of ropinirole - continue judicious use of gabapentin since he has diabetic neuropathy Type 2 diabetes mellitus 10/10/2022 Assessment & Plan (01/29/2025 10:20 AM EDT): - A1c 7.0% on 01/07/2025, improved from 10.8% on 08/19/24 - A1C 9.6% on 04/13/24, no improvement from 9.4% on 11/18/23 - Continue basal insulin: Lantus 48 units daily - Continue bolus insulin: Humalog pen 20 units with meals - Continue empagliflozin 25 mg daily - Treatment hx: previously on Metformin, but discontinued due to GI side effects. Pt has not used Lantus for more than 1 year. Tried GLP-1 agonist (Bydureon) but developed abdominal pain. Patient did not tolerate dulaglutide (Trulicity)'s side effect. Previously using the Tresiba for basal insulin, yet switched back to Lantus due to insurance - Continue working on lifestyle modifications Last eye exam: Nov 2022, [facility], Mild nonproliferative diabetic retinopathy without macular edema. Up coming appt on October 2024 Last foot exam: 11/18/23 Last microalbumin test: July 2024 Last lipid profile: 06/18/24 Last dental exam: overdue Assessment & Plan (08/19/2024 12:08 PM EDT): [...] sooner prn Last eye exam: Nov 2022, [facility], Mild nonproliferative diabetic retinopathy without [...] sooner prn Last eye exam: Nov 2022, [facility], Mild nonproliferative diabetic retinopathy without [...] sooner prn Last eye exam: Nov 2022, [facility], Mild nonproliferative diabetic retinopathy without [...] 2 diabetes mellitus 07/22/2022 Assessment & Plan (01/29/2025 10:25 AM EDT): -Pt had NCT/EMG on 09/20/21. Showed early sensory motor neuropathy. No radiculopathy. -Currently prescribed gabapentin -Optimize diabetes management Assessment & Plan (11/18/2023 4:14 PM EDT): [...] (obstructive sleep apnea) 07/22/2022 Assessment & Plan (01/29/2025 10:32 AM EDT): - Sleep study on 11/26/21 shows ALEC and periodic limb movement disorder - Sleep study in September 2024 was not diagnostic because he was unable to sleep - Refer to sleep medicine clinic Assessment & Plan (08/19/2024 12:09 PM EDT): [...] mellitus 07/10/2022 Hypertension 07/10/2022 Assessment & Plan (01/18/2025 9:43 AM EDT): - Goal BP < 130/80 per ACC/AHA guideline (Treatment threshold >= 130/80 ) - Co-managed with our pharmacist, Valentín Anguiano Pharm D. - Continue working on lifestyle modifications - Recommended self-monitoring BP. - Continue current medications: Lisinopril 20 mg daily and amlodipine 5 mg daily - Treat ALEC - Follow up in 3 mo Assessment & Plan (08/19/2024 8:59 AM EDT): [...] if any problem arises - Referred to [facility] Assessment & Plan (10/14/2022 5:49 PM EDT): [...] if any problem arises - Referred to [facility] Assessment & Plan (07/22/2022 5:30 PM EDT): - Goal BP < 140/90 per JNC-8 and < 130/80 per ACC/AHA guideline (Treatment threshold >= 130/80 ) - BP elevated today - Continue working on lifestyle modifications - Recommended self-monitoring BP. - Continue current medications: Lisinopril 10 mg daily - Treatment Hx: - Follow up in 3-6 mo, sooner if any problem arises History of kidney stones 07/03/2016 Assessment & Plan (01/29/2025 10:21 AM EDT): - s/p ESWL on 02/25/2019. -Last Kidney Stone on 07/23/21, pt was given Tamsulosin, Prednisone and Oxycodone. -Encouraged to continue adequate hydration, 2L / day Assessment & Plan (08/19/2024 8:59 AM EDT): [...] / day Asthma 02/04/2013 Assessment & Plan (01/20/2025 5:25 PM EDT): - albuterol HFA prn - continue remaining non-smoker Assessment & Plan (04/14/2024 4:27 AM EST): [...] Encounters Date Type Department Care Team Description 01/25/2025 2:00 PM EDT Office Visit [facility] [address] [address] Latonya Cheng FNP Cough in adult patient (Primary Dx); Acute upper respiratory infection 01/25/2025 Travel 01/18/2025 9:30 AM EDT Office Visit [facility] [place] [address] Hanna Moyer MD Routine general medical examination at a health care facility (Primary Dx); Primary hypertension; Type 2 diabetes mellitus with hyperglycemia, with long-term current use of insulin (HCC); Mild nonproliferative diabetic retinopathy of both eyes without macular edema associated with type 2 diabetes mellitus (HCC); Mild intermittent asthma without complication; Moderate episode of recurrent major depressive disorder (CMS/HCC) ([facility]); ALEC (obstructive sleep apnea); Restless leg syndrome; Psychophysiological insomnia; Petechiae; Class 2 severe obesity due to excess calories with serious comorbidity and body mass index (BMI) of 39.0 to 39.9 in adult; History of kidney stones; Mood disorder (CMS/HCC); Diabetic polyneuropathy associated with type 2 diabetes mellitus (HCC) 01/18/2025 Travel 01/15/2025 Telephone [facility] [place] [address] Hanna Moyer MD chartprep 01/11/2025 Patient Outreach [facility] [place] [address] Hanna Moyer MD Pre-visit Planning ([facility] Screening completed on 11/16/2024) 01/07/2025 Travel 01/07/2025 Refill [facility] [place] [address] Valentín Anguiano, LeannD Type 2 diabetes mellitus with hyperglycemia, with long-term current use of insulin ([facility]) 12/28/2024 Orders Only [facility] [place] [address] Hanna Moyer MD Venous stasis dermatitis (Primary Dx) 12/25/2024 9:15 AM EDT Office Visit [facility] [place] [address] Praveen Sanchez MD Venous stasis dermatitis (Primary Dx) 12/25/2024 Travel 12/22/2024 Refill [facility] [address] [place] [address] Valentín Anguiano, Sean Type 2 diabetes mellitus with hyperglycemia, with long-term current use of insulin ([facility]) (Primary Dx); Primary hypertension 12/11/2024 Telephone [facility] [address] [place] [phone] [place] 12/11/2024 Telephone [facility] [address] [place] [phone] [place] 12/11/2024 Refill [facility] [address] [place], [place] [phone] Hanna Moyer MD Type 2 diabetes mellitus with hyperglycemia, with long-term current use of insulin ([facility]) 12/04/2024 Patient Outreach [facility] [address] [place], [place] [phone] Hanna Moyer MD Transition Of Care (Tcm) (SDOH was already completed) from Last 3 Months Immunizations Immunization Administration Dates Next Due Hep B, adult 03/30/2019,11/15/2016,10/13/2015 Influenza Injectable Quadriv alant Preservative Free IIV4 MDCK 01/07/2023 Influenza injectable quadriv alent preservative free 03/27/2016 Influenza, IIV3, injectable 02/18/2014, 2,01/02/2010 Influenza, Split (incl. dominique fied surface antigen) 01/15/2013,12/31/2011 Influenza, seasonal, injecta ble, preservative free 01/07/2025,04/14/2024 Pfizer Covid-19 Vaccine 12+ 01/07/2025, 5,01/07/2023 Pneumococcal Conjugate PCV 20 07/10/2022 Pneumococcal Polysaccharide [...] Passive Smoke Exposure: Past Smokeless Tobacco: Never Tobacco Cessation:Counseling Given: Not Answered Alcohol Use Standard Drinks/Week Comments Never 0 (1 standard drink = 0.6 oz pur e alcohol) Depression Answer Date Recorded Patient Health Questionnaire-9 Score 9 01/18/2025 Patient Health Questionnaire-9 Score 9 01/18/2025 Last PHQ-9: Questionnaire Data Not on file 1 Housing Stability Answer Date Recorded What is [...] Answer Date Recorded Patient Health Questionnaire-2 Score 2 01/18/2025 Internet Access Answer Date Recorded Internet Access [...] Sign Reading Time Taken Comments Blood Pressure 125/78 01/25/2025 1:53 PM EDT Pulse 74 01/25/2025 1:53 PM EDT Temperature 36.7 C (98.1 F) 01/25/2025 1:53 PM EDT Respiratory Rate 18 01/25/2025 1:53 PM EDT Oxygen Saturation 97% 01/25/2025 1:53 PM EDT Inhaled Oxygen Concentration - - Weight 98 kg (216 lb) 01/25/2025 1:53 PM EDT Height 157.5 cm (5' 2 ) 01/18/2025 9:40 AM EDT Body Mass Index 39.51 01/18/2025 9:40 AM EDT Plan of Treatment Upcoming Encounters Date Type Department Care Team (Late st Contact Info) Description 04/16/2025 2:00 PM EST Medication Management [facility] [address] [place] [address] Valentín Anguiano, PharmD [address] [place] [address] 04/19/2025 10:00 AM EST Office Visit [facility] [address] [place] [address] Marissa Kimball, OD [address] [place] [address] Health Maintenance Due Date Last Done Comments Family Planning (PISQ) 1997 HPV Vaccines (1 - Male 3-dose series) 1997 Diabetes: Foot Exam 11/17/2024 11/18/2023, 11/18/2023, 11/18/2023, Additional history exists Diabetes: Hemoglobin A1C 04/09/2025 025, 08/19/2024, 04/14/2024, Additional history exists Alcohol/Substance Use Screening 04/14/2025 04/14/2024 Lipid Panel 06/18/2025 06/18/2024, 08/07, 01/07/2023, Additional history exists Depression Monitoring 07/19/2025 01/18/2025, 025 Diabetes: Urine Protein Screening 07/23/2025 07/23/2024, 06/18/2024, 06/18/2024, Additional history exists Eye Exam 10/16/2025 10/16/2024, 10/06, 10/16/2024, Additional history exists SDOH Screening 11/16/2025 11/16/2024 Disability Screening 01/25/2026 01/25/2025 Tobacco Screening 01/29/2026 01/29/2025 DTaP/Tdap/Td Vaccines (4 - Td or Tdap) 08/01/2031 07/31/2021, 11/01/2012, 01/02/2010 Zoster Vaccines (1 of 2) 2032 RSV Patients and Patients Aged 60 years or older (1 - 1-dose 75+ series) 2057 Hepatitis B Vaccines Completed 03/30/2019, 11/15/2016, 10/13/2015 HIV Screening Completed 04/19/2021 Pneumococcal Vaccine: Pediatrics (0 to 5 Years) and At-Risk Patients (6 to 49) Years Completed 07/10/2022, 06/21/2011 Hepatitis C Screening Completed 01/07/2023, 022 COVID-19 Vaccine Completed 01/07/2025, 10/2024, 01/07/2023, Additional history exists Influenza Vaccine Completed 01/07/2025, , 01/07/2023, Additional history exists HIB Vaccines Aged Out [...] Pressure 125/78(2024 1:53 PM EDT) No Valentín Anguiano, Sean Hemoglobin A1c < 7 Result Component 7(01/07/2025 9:38 AM EDT) No Valentín Anguiano PharmD Procedures Procedure Name Priority Date/Time Associated Diagnosis Comments POCT INFLUENZA B (ID NOW RAPID MOLECULAR) Routine 01/25/2025 2:06 PM EDT Cough in adult patient POCT INFLUENZA A (ID NOW RAPID MOLECULAR) Routine 01/25/2025 2:06 PM EDT Cough in adult patient POCT RAPID COVID ANTIGEN Routine 01/25/2025 2:05 PM EDT Cough in adult patient POCT GLYCATED HEMOGLOBIN, TOTAL Routine 01/07/2025 9:38 AM EDT Type 2 diabetes mellitus with hyperglycemia, with long-term current use of insulin ([facility]) ALBUMIN, RANDOM URINE W/CREATININE Routine 07/23/2024 1:19 PM EDT LIPID PANEL WITH REFLEX TO DIRECT LDL Routine 06/18/2024 8:38 AM EDT Type 2 diabetes mellitus with hyperglycemia, with long-term current use of insulin ([facility]) Hypertriglyceridemi a HEPATITIS C AB W/REFL TO HCV RNA, QN, PCR Routine 01/07/2023 11:35 AM EDT Type 2 diabetes mellitus with diabetic polyneuropathy, with long-term current use of insulin ([facility]) HIV 1/2 ANTIGEN/ANTIBODY, FOURTH GENERATION W/RFL Routine 04/19/2021 9:19 AM EST from Last 3 Months or Most Recently Relevant to Health Maintenance Results * Influenza B (ID NOW Rapid Molecular) (01/25/2025 2:06 PM EDT) Influenza B Negative Negative, Indeterminate [facility] Swab 01/25/2025 2:06 PM EDT Latonya ROSA POINT OF CARE TEST ENTER/EDIT ORDERABLES Final Result [facility] [address] [place] [phone] * Influenza A (ID NOW Rapid Molecular) (01/25/2025 2:06 PM EDT) Pathologist [facility] Influenza A Negative Negative, Indeterminate [facility] Swab 01/25/2025 2:06 PM EDT Latonya Opalo FACIALIST POINT OF CARE TEST ENTER/EDIT ORDERABLES Final Result [facility] [address] [place] [phone] * POCT Rapid COVID Ag (01/25/2025 2:05 PM EDT) [facility] Rapid COVID Ag Negative Swab 01/25/2025 2:05 PM EDT Latonya Opalo FACIALIST POINT OF CARE TEST ENTER/EDIT ORDERABLES Final Result * (ABNORMAL) POCT Hgb A1c (01/07/2025 9:38 AM EDT) [facility] Hemoglobin A1C 7.0(A) 4.0 - 5.7 % QC Media Lot # [id number] Lot# Expiration Date ,[id number] Blood 01/07/2025 9:38 AM EDT Hanna Moyer MD POINT OF CARE TEST ENTER/EDIT OR DERABLES Final Result * Albumin, Random Urine W/Creatinine (07/23/2024 1:19 PM EDT) [facility] Creatinine, Urine 75.68 mg/dL [facility] Microalbumin Urine 19.0 mg/L [facility] Microalbum Creatinine Ratio Ur 25.1 <30 ug/mg cr [facility] Comment:Albumin/Creatinine R atio Reference Ranges: Normal: < 30 ug/mg creatinine Microalbuminuria: 30 - 300 ug/mg creatinineClinical Albuminuria: > 300 ug/mg creatinine 07/23/2024 1:19 PM EDT 07/23/2024 4:13 PM EDT Hanna Moyer MD LAB URINE ORDERABLES Final Resul t Performing Organization Address [facility] Co de Phone Number [facility] [address] [place] [phone] * (ABNORMAL) Lipid Panel with Reflex to Direct LDL (06/18/2024 8:38 AM EDT) Triglycerides 112 <150 mg/dL [facility] Comment:Desirable Triglyceri de: less than 150 mg/dLBorderline High Triglyceride 150-199 mg/dLHigh Triglyceride: 200-499 mg/dLVery High Triglyceride: greater than or equal to 5OO mg/dL Cholesterol 129 <200 mg/dL [facility] Comment:Desirable Cholestero l: less than 200 mg/dLBorderline High Cholesterol: 200-239 mg/dLHigh Cholesterol: greater than 239 mg/dL LDL Cholesterol Calculated 72 <100 mg/dL [facility] Comment:Desirable LDL: less than 100 mg/dLNear Optimal/Above Optimal LDL: 110- 129 mg/dLBorderline High LDL: 130-159 mg/dLHigh LDL: 160-189 mg/dLVery High LDL: greater than or equal to 190 mg/dL HDL Cholesterol 35(L) >40 mg/dL [facility] Comment:Desirable HDL: great er than 40 mg/dL Note: This HDL assay may give artificially low results in patients with liver disease. Blood 06/18/2024 8:38 AM EDT 06/18/2024 11:15 AM EDT us Hanna Moyer MD LAB BLOOD ORDERABLES Final Resul t Performing Organization Address [facility]/ZIP Co de Phone Number [facility] [address] [place] [address] [phone] * Hepatitis C Antibody with Reflex to HCV, RNA, Quantitative, Real-Time PCR (01/07/2023 11:35 AM EDT) Hepatitis C Antibody Nonreactive Nonreactive [facility] Comment:Antibodies to HCV no t detected; does not exclude early acuteHCV infection. Blood Venous blood specimen / Unknown 01/07/2023 11:35 AM EDT 01/07/2023 1:12 PM EDT Hanna Moyer MD LAB BLOOD ORDERABLES Final Resul t Performing Organization Address [facility] Co de Phone Number [facility] [address] [place] [phone] * HIV 1/2 ANTIGEN/ANTIBODY,FOURTH GENERATION W/RFL (04/19/2021 9:19 AM EST) [facility] HIV-1/2 ANTIGEN AND ANTIBODIES, 4TH GENERATION W/ REFLEX NON-REACT BRIGETTE NON-REACT BRIGETTE [facility] Comment: HIV-1 antigen and HIV-1/HIV-2 antibodies were not detected. There is no laboratory evidence of HIV infection. PLEASE NOTE: This information has been disclosed to you from records whose confidentiality may be protected by state law. If your state requires such protection, then the state law prohibits you from making any further disclosure of the information without the specific written consent of the person to whom it pertains, or as otherwise permitted by law. A general authorization for the release of medical or other information is NOT sufficient for this purpose. For additional information please refer to http://[email or web address]/[email or web address] (This link is being provided for informational/ educational purposes only.) The performance of this assay has not been clinically validated in patients less than 2 years old. 04/19/2021 9:19 AM EST Hanna Moyer MD LAB BLOOD ORDERABLES Final Resul t [facility] [address] from Last 3 Months or Most Recently Relevant to Health Maintenance Insurance [facility] , [address] [place] [address] Care Teams Director [employer] Relationship Specialty Start Date End Date Hanna Moyer MD [address] [place] [address] PCP - General Family Medicine 10/08/11 Valentín Anguiano, LeannD [address] [place] [address] Pharmacist Internal Medicine 01/18/23
--- OUTSIDE RECORDS SUMMARY | 2025-02-25 13:41 | XMS_ITS | Encounter Summary ---
Author Organization [employer] Address [address] [facility] 7t [place] [address] Care Team Providers Care Retail Sales Associate Bilingual Name Role Phone Hanna Moyer MD Primary Care Provider [phone] Valentín Anguiano PharmD Unavailable [phone] Encounter Details Date Type Department Care Team (Late st Contact Info) Description 09/22/[address] [facility] [address] [place], [place] [phone] Hanna Moyer MD [address] [place], [place] [phone] Social History Tobacco Use Types Packs/Day Years [...] Description 04/16/2025 2:00 PM EST Medication Management [facility] [address] [place] [address] Valentín Anguiano PharmD [address] [place] [address] 04/19/2025 10:00 AM EST Office Visit [facility] [address] [place] [address] Jigar, Marissa, OD 230 [place] [address] documented as of this encounter Goals Goal Patient Goal Type Associated Problems Recent Progress Patient-Stated? Author Blood Pressure < 140/90 Blood Pressure 125/78(2024 1:53 PM EDT) No Valentín Anguiano, PharmGopal Hemoglobin A1c < 7 Result Component 7(01/07/2025 9:38 AM EDT) No Valentín Anguiano PharmD documented as of this encounter Visit Diagnoses Not on filedocumented in this encounter Additional Health Concerns Assessment Noted Time PHQ-9 Depression Total Score: 14 025 12:01 PM EST documented as of this encounter Care Teams Retail Sales Associate Bilingual Relationship Specialty Start Date End Date Hanna Moyer MD [address] [place] [address] PCP - General Family Medicine 10/08/11 Valentín Anguiano, LeannD [address] [place], [place] [address]carla [place] [address] Pharmacist Internal Medicine 01/18/23 documented as of this encounter
--- OUTSIDE RECORDS SUMMARY | 2025-02-25 13:41 | XMS_ITS | Encounter Summary ---
Author Organization [facility] Address [address] [facility] 7t [place] [address] Care Team Providers Care Blade Grader Operator Name Role Phone Hanna Moyer MD Primary Care Provider [phone] Valentín Anguiano PharmD Unavailable [phone] Reason for Referral * Consultation (Routine) - Closed Specialty Diagnoses / Procedures Referred By Contguillermina t Referred To Contact Pharmacy Diagnoses Type 2 diabetes mellitus with hyperglycemia, with long-term current use of insulin (HCC) Primary hypertension Hanna Moyer MD 230 [place] [address] Phone: tel: fax: Referral ID Status Reason Start Date Expiration Date V isits Requested Visits Authorized [id number] Closed Consult and Treat 01/17/2024 01/16/2025 6 6 Encounter Details Date Type Department Care Team (Late st Contact Info) Description 01/17/2024 Orders Only [facility] [address] [place] [address] [phone] Hanna Moyer MD [address] [place], [place] [phone] Type 2 diabetes mellitus with hyperglycemia, with [...] Description 04/16/2025 2:00 PM EST Medication Management [facility] 230 [place] [address] Valentín Anguiano, PharmD 230 [place] [address] 04/19/2025 10:00 AM EST Office Visit [facility] [address] [place] [address] Marissa Kimball, OD 230 [place] [address] Scheduled Referrals Name Type Priority Associated Diagnoses Orde r Schedule Referral to Pharmacy CDTM Outpatient Referral Routine Type 2 diabetes mellitus with hyperglycemia, with long-term current use of insulin ([facility]) Primary hypertension Ordered: 01/17/2024 documented [...] hyperglycemia, with long-term current use of insulin ([facility])- Primary Primary hypertension Unspecified essential hypertension documented in this encounter Additional Health Concerns Assessment Noted Time PHQ-9 Depression Total Score: 0 01/08/20 10:24 AM EDT documented as of this encounter Care Teams Blade Grader Operator Relationship Specialty Start Date End Date Hanna Moyer MD 230 [place] [address] PCP - General Family Medicine 10/08/11 Valentín Anguiano PharmD [address] [place] [address] Pharmacist Internal Medicine 01/18/23 documented as of this encounter
--- OUTSIDE RECORDS SUMMARY | 2025-02-25 13:41 | XMS_ITS | Encounter Summary ---
Author Organization [employer] Address [address] [facility] 7t [place] [address] Care Team Providers Care Correspondent Name Role Phone Hanna Moyer MD Primary Care Provider [phone] Valentín Anguiano PharmD Unavailable [phone] Reason for Visit * Reason Comments Med Refill Encounter Details Date Type Department Care Team (Late st Contact Info) Description 10/11/2023 Refill [facility] 230 [place], [place] [phone] Hanna Moyer MD [address] [place], [place] [phone] Type 2 diabetes mellitus with diabetic polyneuropathy, with long-term current use of insulin ([facility]) Social History Tobacco Use Types Packs/Day [...] Description 04/16/2025 2:00 PM EST Medication Management [facility] [address] [place] [address] Valentín Anguiano PharmD [address] [place] [address] 04/19/2025 10:00 AM EST Office Visit [facility] [address] [place] [address] Jigar, Marissa, OD 230 [place] [address] documented as of this encounter Goals Goal [...] with long-term current use of insulin (HCC) documented in this encounter Additional Health Concerns Assessment Noted Time PHQ-9 Depression Total Score: 0 01/08/20 23 10:24 AM EDT documented as of this encounter Care Teams Correspondent Relationship Specialty Start Date End Date Hanna Moyer MD [address] [place] [address] PCP - General Family Medicine 10/08/11 Valentín Anguiano, LeannD [address] [place] [phone] Pharmacist Internal Medicine 01/18/23 documented as of this encounter
--- OUTSIDE RECORDS SUMMARY | 2025-02-25 13:41 | XMS_ITS | Encounter Summary ---
Author Organization [employer] Address [address] [facility] [address] 7t [place] [address] Care Team Providers Care Horticulturalist Name Role Phone Hanna Moyer MD Primary Care Provider Valentín Anguiano PharmD Unavailable [phone] Encounter Details Date Type Department Care Team (Late st Contact Info) Description 08/26/2023 Orders Only [facility] 230 [place], [place] [phone] Hanna Moyer MD 230 [place], [place] [phone] Primary hypertension (Primary Dx); Type 2 diabetes mellitus with hyperglycemia, with long-term current use of insulin ([facility]); Diplopia Social History Tobacco Use Types Packs/Day [...] Description 04/16/2025 2:00 PM EST Medication Management [facility] 230 [place] [address] Valentín Anguiano, Sean [address] [place] [address] 04/19/2025 10:00 AM EST Office Visit [facility] [address] [place] [address] Jigar, Marissa, OD 230 [place] [address] Scheduled Orders Name Type Priority Associated Diagnoses Orde r Schedule Albumin, Random Urine W/Creatinine Lab Routine Type 2 diabetes mellitus with hyperglycemia, with long-term current use of insulin ([facility]) Expected: 08/26/2023 (Approximate), Expires: 08/25/2024 Lipid Panel with Reflex to Direct LDL Lab Routine Type 2 diabetes mellitus with hyperglycemia, with long-term current use of insulin ([facility]) Expected: 08/26/2023 (Approximate), Expires: 08/25/2024 documented as [...] hyperglycemia, with long-term current use of insulin ([facility]) TSH W/REFLEX TO FT4 Routine 08/28/2023 1 0:55 AM EDT Primary hypertension Diplopia HEMOGLOBIN A1C Routine 08/28/2023 10:55 AM EDT Type 2 diabetes mellitus with hyperglycemia, with long-term current use of insulin ([facility]) documented in this encounter Results * TSH with Reflex to Free T4 (08/28/2023 10:55 AM EDT) TSH reflex Free T4 1.07 0.32 - 4.0 uIU/mL [facility] Blood 08/28/2023 10:5 5 AM EDT 08/28/2023 1:06 PM EDT us Hanna Moyer MD LAB BLOOD ORDERABLES Final Resul t [facility] [address] [place] [phone] * (ABNORMAL) Hemoglobin A1c (08/28/2023 10:55 AM EDT) Hemoglobin A1c 10.9(H) <6.0 % [facility] Comment:Hemoglobin A1C Refer ence Range Adults: 4.8 - 6.0 % Non diabetic: < 6.0 % Goal: < 7.0 %Additional Action Suggested: > 8.0 %Note: Hemoglobin A1c results are invalid for patients with abnormal amounts of HbF. Blood transfusions may impact the HbA1c concentration in the patient sample. Estimated Average Glucose 266 mg/dL [facility] Comment:eAG = Estimated ave rage glucose which is %A1C expressed asaverage glucose, using the formula of the C4A-EcbfultNufinyj Glucose study (ADAG), Diabetes Care, Vol.31,#8,2007 Blood Venous blood specimen / Unknown 08/28/2023 10:55 AM EDT 08/28/2023 1:06 PM EDT Hanna Moyer MD LAB BLOOD ORDERABLES Final Resul t Performing Organization Address [facility] Co de Phone Number [facility] [address] [place] [phone] * Vitamin B12/Folate, Serum Panel (08/28/2023 10:55 AM EDT) Pathologist [facility] Vitamin B12 318 200 - 900 pg/mL [facility] Comment:NORMAL 200-900 PG/ML INDETERMINATE 160-199 PG/ML DEFICIENT < 160 PG/ML Folate 13.3 > or = 4.0 ng/mL [facility] Comment:Reference Values:> o r = 4.0 ng/mL< 4.0 ng/mL suggests folate deficiency Methotrexate, aminopterin and folinic acid(leucovorin) are chemotherapeutic agents whose molecularstructures are similar to folate; therefore, the Architectfolate assay cannot be used for patients using these drugs. 08/28/2023 10:5 5 AM EDT 08/28/2023 1:06 PM EDT Hanna Moyer MD LAB BLOOD ORDERABLES Final Resul t Performing Organization Address [facility] de Phone Number [facility] [address] [place] [phone] documented in this encounter Visit Diagnoses Diagnosis Primary hypertension- Primary Unspecified essential hypertension Type 2 diabetes mellitus with hyperglycemia, with long-term current use of insulin (HCC) Diplopia documented in this encounter Additional Health Concerns Assessment Noted Time PHQ-9 Depression Total Score: 0 01/08/20 23 10:24 AM EDT documented as of this encounter Care Teams Horticulturalist Relationship Specialty Start Date End Date Hanna Moyer MD [address] [place] [address] PCP - General Family Medicine 10/08/11 Valentín Anguiano, PharmD [address] [place] [address] Pharmacist Internal Medicine 01/18/23 documented as of this encounter
--- OUTSIDE RECORDS SUMMARY | 2025-02-25 13:42 | XMS_ITS | Encounter Summary ---
Author Organization [employer] [facility] Address [address] [facility] 7t [place] [address] Care Team Providers Care Rehabilitation Tech Name Role Phone Hanna Moyer MD Primary Care Provider Valentín Anguiano PharmD Unavailable [phone] Reason for Referral * Consultation (Routine) - Authorized Specialty Diagnoses / Procedures Referred By Contac t Referred To Contact Pharmacy Diagnoses Type 2 diabetes mellitus with hyperglycemia, with long-term current use of insulin (HCC) Primary hypertension Hanna Moyer MD [address] [place] [phone] Phone: tel: fax: Referral ID Status Reason Start Date Expiration Date Visits Requested Visits Authorized [id number] Authorized Consult and Treat 09/02/2024 09/02/2025 6 6 Encounter Details Date Type Department Care Team (Late st Contact Info) Description 09/02/2024 Orders Only [facility] [address] [place] [address] [phone] Hanna Moyer MD [address] [place] [address] [phone] Type 2 diabetes mellitus with hyperglycemia, with [...] Description 04/16/2025 2:00 PM EST Medication Management [facility] 230 [place] [address] Valentín Anguiano, PharmD 230 [place] [address] 04/19/2025 10:00 AM EST Office Visit [facility] [address] [place] [address] Marissa Kimball, OD 230 [place] [address] Scheduled Referrals Name Type Priority Associated Diagnoses Orde r Schedule Referral to Pharmacy CDTM Outpatient Referral Routine Type 2 diabetes mellitus with hyperglycemia, with long-term current use of insulin ([facility]) Primary hypertension Ordered: 09/02/2024 documented as of this encounter Goals Goal [...] hyperglycemia, with long-term current use of insulin ([facility])- Primary Primary hypertension Unspecified essential hypertension documented in this encounter Additional Health Concerns Assessment Noted Time PHQ-9 Depression Total Score: 14 025 12:01 PM EST documented as of this encounter Care Teams Rehabilitation Tech Relationship Specialty Start Date End Date Hanna Moyer MD 230 [place] [address] PCP - General Family Medicine 10/08/11 Valentín Anguiano PharmD 230 [place] [address] Pharmacist Internal Medicine 01/18/23 documented as of this encounter
--- OUTSIDE RECORDS SUMMARY | 2025-02-25 13:42 | XMS_ITS | Encounter Summary ---
Author Organization [employer] Address [address] [facility] 7t [place] [address] Care Team Providers Care Thermostatic Controls Supervisor Name Role Phone Hanna Moyer MD Primary Care Provider [phone] Valentín Anguiano PharmD Unavailable [phone] Reason for Referral * Consultation (Routine) - Closed Specialty Diagnoses / Procedures Referred By Linda johnson Referred To Contact Physical Therapy Diagnoses Chronic left shoulder pain Hanna Moyer MD [address] [place] [address] Phone: tel: fax: Referral ID Status Reason Start Date Expiration Date V isits Requested Visits Authorized [id number] Closed Specialty Services Required 08/11/2024 08/11/2025 1 1 Encounter Details Date Type Department Care Team (Late st Contact Info) Description 08/11/2024 Orders Only [facility] 230 [place], [place] [phone] Hanna Moyer MD 230 [place], [place] [phone] Chronic left shoulder pain (Primary Dx) Social [...] Description 04/16/2025 2:00 PM EST Medication Management [facility] [address] [place] [address] Valentín Anguiano, PharmD 230 [place] [address] 04/19/2025 10:00 AM EST Office Visit [facility] [address] [place] [address] Marissa Kimball, OD 230 [place] [address] Scheduled Referrals Name Type Priority Associated Diagnoses Orde r Schedule Referral to Physical Therapy Outpatient Referral Routine Chronic left shoulder pain Expected: 08/11/2024 (Approximate), Expires: 08/11/2025 documented as of this encounter Goals Goal Patient Goal Type Associated Problems Recent Progress Patient-Stated? Author Blood Pressure < 140/90 Blood Pressure 125/78(2024 1:53 PM EDT) No Valentín Anguiano PharmD Hemoglobin A1c < 7 Result Component 7(01/07/2025 9:38 AM EDT) No Valentín Anguiano PharmD documented as of this encounter Procedures Procedure Name Priority Date/Time Associated Diagnosis Comments XR SHOULDER 2+ VIEWS LEFT Routine 08/12/2024 12:16 PM EDT Chronic left shoulder pain documented in this encounter Results * XR Shoulder 2+ Views Left (08/12/2024 12:16 PM EDT) Anatomical Region Laterality Modality Upper Extremities, Shoulder Left Radi ographic Imaging 08/12/2024 12:1 6 PM EDT Narrative 08/12/2024 12:45 [place] [address] XRay Report Signed Patient: Zeb Topete MR#: [id number] : 1980 Acct:[id number] Age/Sex: 43 / M ADM Date: 08/12/24 Loc: HO.HHCX Attending Dr: Hanna Myoer MD Ordering Physician: Hanna Moyer MD Date of Service: 08/12/24 Procedure(s): XR shoulder LT min 2V Accession Number(s): [id number] cc: Hanna Moyer MD EXAMINATION: XR SHOULDER, [...] Signed By: <Electronically signed by Atul Alfredo MD in [place]> 08/12/24 1243 DD/ 1216 TD/TT: 08/12/24 1236 Machine Stemmer: Procedure Note Donotuseinterpreter, Image - 08/12/[address] [address] XRay Report Signed Patient: Zeb TopeteMR#: [id number] : 1980Acct:[id number] Age/Sex: 43 / MADM Date: 08/12/24 Loc: HO.HHCX Attending Dr: Hanna Moyer MD Ordering Physician: Hanna Moyer MD Date of Service: 08/12/24 Procedure(s): XR shoulder LT min 2V Accession Number(s): [id number] cc: Hanna Moyer MD EXAMINATION: XR SHOULDER, [...] 08/12/24 1243 DD/ 1216 TD/TT: 08/12/24 1236 Machine Stemmer: Hanna Moyer MD IMG XR PROCEDURES Final Result documented in this encounter Visit Diagnoses Diagnosis Chronic left shoulder pain- Primary Pain in joint, shoulder region documented in this encounter Additional Health Concerns Assessment Noted Time PHQ-9 Depression Total Score: 14 025 12:01 PM EST documented as of this encounter Care Teams Thermostatic Controls Supervisor Relationship Specialty Start Date End Date Hanna Moyer MD [address] [place] [address] PCP - General Family Medicine 10/08/11 Valentín Anguiano, Sean [address] [place] [address] Pharmacist Internal Medicine 01/18/23 documented as of this encounter
== END 2025-02-25 10:24 | disposition home or self-care (01) ==
LOC: HO.HSMS 09:42
PROVIDERS: PCP Family Medicine; Visit Provider Physician Assistant Medical
DX: G47.33 Obstructive sleep apnea (adult) (pediatric) (principal); G47.19 Other hypersomnia
CPT/HCPCS: 99204

== ENCOUNTER 2025-03-09 16:27 | Emergency (ER) | payer OTHER, SELFPAY ==
--- NOTE | ~2025-03-09 | XR_ITS ---
CLINICAL HISTORY: L sided chest pain Two views of the chest. COMPARISON: XR chest dated 03/22/23 at 12:39 EST FINDINGS: Normal heart and mediastinal contours. No consolidation. No pleural effusion or pneumothorax. No acute fracture. IMPRESSION: 1. No consolidation. This document has been electronically signed by: Marco Addison MD on 03/09/2025 17:22:10
--- OUTSIDE RECORDS SUMMARY | 2025-03-09 15:40 | XMS_ITS | Encounter Summary ---
Author Organization [employer] Address [address] [place] [address] Care Team Providers Care Block Cutter Name Role Phone Hanna Moyer MD Primary Care Provider [phone] Valentín Anguiano PharmD Unavailable [phone] Reason for Visit * Reason Comments Chest Pain Encounter Details Date Type Department Care Team (Late st Contact Info) Description 03/09/2025 3:40 PM EST Office Visit [facility] [address] [place], [place] [id number] Latonya Cheng FNP [address] [place], [place] [phone] Primary hypertension Social History Tobacco Use Types [...] AM EDT documented as of this encounter Last Filed Vital Signs Vital Sign Reading Time Taken Comments Blood Pressure 158/116 03/09/2025 4:22 PM EST Pulse 77 03/09/2025 4:22 PM EST Temperature 37.2 C (99 F) 03/09/2025 4:22 PM EST Respiratory Rate 16 03/09/2025 4:22 PM EST Oxygen Saturation 97% 03/09/2025 4:22 PM EST Inhaled Oxygen Concentration - - Weight - - Height - - Body Mass Index - - documented in this encounter Plan of Treatment Upcoming Encounters Date Type Department Care Team (Late st Contact Info) Description 04/16/2025 2:00 PM EST Medication Management [facility] MEDICINE [address] [place] [address] Valentín Anguiano, PharmD [address] [place] [address] 04/19/2025 10:00 AM EST Office Visit [facility] OPTOMETRY [address] [place] [address] Marissa Kimball, OD [address] [place] [address] documented as of this encounter Goals Goal Patient Goal Type Associated Problems Recent Progress Patient-Stated? Author Blood Pressure < 140/90 Blood Pressure 158/116(03/09 4:22 PM EST) No Anguiano, Valentín, PharmD Hemoglobin A1c < 7 Result Component 7(01/07/2025 9:38 AM EDT) Valentín Oneill PharmD Help patients manage their type 2 diabetes Care Plan Help patients manage their type 2 diabetes Hanna Feliz MD Weekly blood pressure task Care Plan Weekly blood pressure task Hanna Feliz MD Help patients manage their type 2 diabetes Care Plan Help patients manage their type 2 diabetes Hanna Feliz MD Patient has diabetic eye disease Care Plan Patient has diabetic eye disease Hanna Feliz MD Help patients manage their type 2 diabetes Care Plan Help patients manage their type 2 diabetes Hanna Feliz MD Patient has chronic kidney disease Care Plan Patient has chronic kidney disease Hanna Feliz MD Help patients manage their type 2 diabetes Care Plan Help patients manage their type 2 diabetes Hanna Feliz MD Patient has diabetic neuropathy Care Plan Patient has diabetic neuropathy No Hanna Moyer MD Weekly blood pressure task Care Plan Weekly blood pressure task Hanna Feliz MD Weekly blood pressure task Care Plan Weekly blood pressure task Hanna Feliz MD Weekly blood pressure task Care Plan Weekly blood pressure task Hanna Feliz MD Patient has diabetic eye disease Care Plan Patient has diabetic eye disease Hanna Feliz MD Patient has diabetic eye disease Care Plan Patient has diabetic eye disease Hanna Feliz MD Patient has diabetic eye disease Care Plan Patient has diabetic eye disease Hanna Feliz MD Patient has chronic kidney disease Care Plan Patient has chronic kidney disease Hanna Feliz MD Patient has chronic kidney disease Care Plan Patient has chronic kidney disease Hanna Feliz MD Patient has chronic kidney disease Care Plan Patient has chronic kidney disease Hanna Feliz MD Patient has diabetic neuropathy Care Plan Patient has diabetic neuropathy No Hanna Moyer MD Patient has diabetic neuropathy Care Plan Patient has diabetic neuropathy No Hanna Moyer MD Patient has diabetic neuropathy Care Plan Patient has diabetic neuropathy Hanna Feliz MD Weekly blood pressure task Care Plan Weekly blood pressure task No Latonya Cheng FNP Weekly blood pressure task Care Plan Weekly blood pressure task No Latonya Cheng FNP Weekly blood pressure task Care Plan Weekly blood pressure task No Okhipo, Latonya, WOOD SCIENCE PROFESSOR Weekly blood pressure task Care Plan Weekly blood pressure task No Okhipo, Latonya, WOOD SCIENCE PROFESSOR Patient has diabetic eye disease Care Plan Patient has diabetic eye disease No Okhipo, Latonya, WOOD SCIENCE PROFESSOR Patient has diabetic eye disease Care Plan Patient has diabetic eye disease No Okhipo, Latonya, WOOD SCIENCE PROFESSOR Patient has diabetic eye disease Care Plan Patient has diabetic eye disease No Okhipo, Latonya, WOOD SCIENCE PROFESSOR Patient has diabetic eye disease Care Plan Patient has diabetic eye disease No Okhipo, Latonya, WOOD SCIENCE PROFESSOR Patient has chronic kidney disease Care Plan Patient has chronic kidney disease No Okhipo, Latonya, WOOD SCIENCE PROFESSOR Patient has chronic kidney disease Care Plan Patient has chronic kidney disease No Okhipo, Latonya, WOOD SCIENCE PROFESSOR Patient has chronic kidney disease Care Plan Patient has chronic kidney disease No Okhipo, Latonya, WOOD SCIENCE PROFESSOR Patient has chronic kidney disease Care Plan Patient has chronic kidney disease No Okhipo, Latonya, WOOD SCIENCE PROFESSOR Patient has diabetic neuropathy Care Plan Patient has diabetic neuropathy No Okhipo, Latonya, WOOD SCIENCE PROFESSOR Patient has diabetic neuropathy Care Plan Patient has diabetic neuropathy No Okhipo, Latonya, WOOD SCIENCE PROFESSOR Patient has diabetic neuropathy Care Plan Patient has diabetic neuropathy No Okhipo, Latonya, WOOD SCIENCE PROFESSOR Patient has diabetic neuropathy Care Plan Patient has diabetic neuropathy No Okhipo, Latonya, WOOD SCIENCE PROFESSOR Weekly blood pressure task Care Plan Weekly blood pressure task No Carl Angel RN Weekly blood pressure task Care Plan Weekly blood pressure task No Carl Angel RN Weekly blood pressure task Care Plan Weekly blood pressure task No Carl Angel RN Weekly blood pressure task Care Plan Weekly blood pressure task No Carl Angel RN Patient has diabetic eye disease Care Plan Patient has diabetic eye disease No Carl Angel RN Patient has diabetic eye disease Care Plan Patient has diabetic eye disease No Carl Angel RN Patient has diabetic eye disease Care Plan Patient has diabetic eye disease No Carl Angel RN Patient has diabetic eye disease Care Plan Patient has diabetic eye disease No Carl Angel RN Patient has chronic kidney disease Care Plan Patient has chronic kidney disease No Carl Angel RN Patient has chronic kidney disease Care Plan Patient has chronic kidney disease No Carl Angel RN Patient has chronic kidney disease Care Plan Patient has chronic kidney disease No Carl Angel RN Patient has chronic kidney disease Care Plan Patient has chronic kidney disease No Carl Angel RN Patient has diabetic neuropathy Care Plan Patient has diabetic neuropathy No Carl Angel RN Patient has diabetic neuropathy Care Plan Patient has diabetic neuropathy No Carl Angel RN Patient has diabetic neuropathy Care Plan Patient has diabetic neuropathy No Carl Angel RN Patient has diabetic neuropathy Care Plan Patient has diabetic neuropathy No Carl Angel RN documented as of this encounter Visit Diagnoses Diagnosis Primary hypertension Unspecified essential hypertension documented in this encounter Additional Health Concerns Active Problems Noted Date Diagnosed Date Help patients manage their type 2 diabetes 03/03 Weekly blood pressure task 03/03/2025 Help patients manage their type 2 diabetes 03/03 Patient has diabetic eye disease 03/03/2025 Help patients manage their type 2 diabetes 03/03 Patient has chronic kidney disease 03/03/2025 Help patients manage their type 2 diabetes 03/03 Patient has diabetic neuropathy 03/03/2025 Weekly blood pressure task 03/03/2025 Weekly blood pressure task 03/03/2025 Weekly blood pressure task 03/03/2025 Patient has diabetic eye disease 03/03/2025 Patient has diabetic eye disease 03/03/2025 Patient has diabetic eye disease 03/03/2025 Patient has chronic kidney disease 03/03/2025 Patient has chronic kidney disease 03/03/2025 Patient has chronic kidney disease 03/03/2025 Patient has diabetic neuropathy 03/03/2025 Patient has diabetic neuropathy 03/03/2025 Patient has diabetic neuropathy 03/03/2025 Weekly blood pressure task 03/09/2025 Weekly blood pressure task 03/09/2025 Weekly blood pressure task 03/09/2025 Weekly blood pressure task 03/09/2025 Patient has diabetic eye disease 03/09/2025 Patient has diabetic eye disease 03/09/2025 Patient has diabetic eye disease 03/09/2025 Patient has diabetic eye disease 03/09/2025 Patient has chronic kidney disease 03/09/2025 Patient has chronic kidney disease 03/09/2025 Patient has chronic kidney disease 03/09/2025 Patient has chronic kidney disease 03/09/2025 Patient has diabetic neuropathy 03/09/2025 Patient has diabetic neuropathy 03/09/2025 Patient has diabetic neuropathy 03/09/2025 Patient has diabetic neuropathy 03/09/2025 Weekly blood pressure task 03/09/2025 Weekly blood pressure task 03/09/2025 Weekly blood pressure task 03/09/2025 Weekly blood pressure task 03/09/2025 Patient has diabetic eye disease 03/09/2025 Patient has diabetic eye disease 03/09/2025 Patient has diabetic eye disease 03/09/2025 Patient has diabetic eye disease 03/09/2025 Patient has chronic kidney disease 03/09/2025 Patient has chronic kidney disease 03/09/2025 Patient has chronic kidney disease 03/09/2025 Patient has chronic kidney disease 03/09/2025 Patient has diabetic neuropathy 03/09/2025 Patient has diabetic neuropathy 03/09/2025 Patient has diabetic neuropathy 03/09/2025 Patient has diabetic neuropathy 03/09/2025 Assessment Noted Time PHQ-9 Depression Total Score: 9 01/19/20 25 10:21 AM EDT documented as of this encounter Care Teams Block Cutter Relationship Specialty Start Date End Date Hanna Moyer MD [address] [place] [address] PCP - General Family Medicine 10/08/11 Valentín Anguiano PharmD [address] [place] [address] Pharmacist Internal Medicine 01/18/23 documented as of this encounter
--- NOTE | 2025-03-09 16:37 | ECG_ITS ---
Test Reason : CP Blood Pressure : */* mmHG Vent. Rate : 71 BPM Atrial Rate : 71 BPM P-R Int : 158 ms QRS Dur : 80 ms QT Int : 372 ms P-R-T Axes : 15 38 24 degrees QTcB Int : 404 ms Normal sinus rhythm Normal ECG When compared with ECG of 25-Aug-2023 14:28, No significant change was found Referred By: Generic ED Physician Electronically Signed By: IRMA HUERTA
[2025-03-09 16:40] VITALS: BP 134/66; PULSE 82; O2SAT 98
[2025-03-09 16:55] VITALS: BP 154/90; PULSE 73; RESP 20; TEMP 36.1; O2SAT 97; BMI 39.8
--- NOTE | 2025-03-09 16:57 | ED_ITS ---
HPI - Chest Pain General Chief Complaint: Chest Pain Stated Complaint: CP for 2 days from walk-in clinic Time Seen by Provider: 03/10/25 00:26 Source: patient Limitations: no limitations History of Present Illness ED Provider: Jovita Bonilla PA-C HPI narrative: 44-year-old male with a history of obesity, sleep apnea, and asthma who presents with chest pain x2 days. Patient states he has been having an ongoing dry cough for weeks. Over the past 2 days, the patient has developed central chest discomfort described as pleuritic. Pain worse with deep inspiration and with palpation of chest wall. Patient denies trauma, overuse injury or new heavy lifting. Denies fever. No recent travel, surgery. Related Data Home Medications ?Medication ?Instructions ?Recorded ?Confirmed gabapentin 400 mg capsule 400 mg PO BEDTIME 01/01/23 0 01/01/23 insulin glargine 100 unit/mL (3 10 unit subcut QPM 01/01/23 mL) subcutaneous pen (Lantus Solostar U-100 Insulin) insulin lispro 100 unit/mL 1 sliding scale dose subcut 01/01/23 01/01/23 subcutaneous half-unit pen USEASDIRECTD (Humalog Cristian KwikPen (U-100)) alcohol swabs (Alcohol Prep Pads) pad topical QID 02/06 06/30 atorvastatin 10 mg tablet 10 mg PO DAILY 02/18/25 blood sugar diagnostic (FreeStyle #10 ea 02/18/25 Precision Kane Strips) empagliflozin 25 mg tablet 25 mg PO DAILY 02/18/25 (Jardiance) flash glucose sensor (FreeStyle #1 ea 02/18/25 Zulay 2 Sensor kit) hydroxyzine HCl 25 mg tablet mg PO 02/18/25 lancets 33 gauge (TRUEplus Lancets) #100 ea 02/18/25 lisinopril 20 mg tablet 20 mg PO QAM 02/18/25 pen needle, diabetic 31 gauge x #1,200 ea 02/18/2508/21 (TechLITE Pen Needle) triamcinolone acetonide 0.1 % appl topical pain topical cream Previous Rx's ?Medication ?Instructions ?Recorded nitrofurantoin 100 mg PO Q12H 5 days #10 ca ps 04/05/21 monohydrate/macrocrystals 100 mg capsule (Macrobid) oxycodone 5 mg tablet 5 mg PO TID PRN pain #8 tabs 07/23/21 tamsulosin 0.4 mg capsule (Flomax) 0.4 mg PO DAILY #7 caps 07/23/21 tamsulosin 0.4 mg capsule 0.4 mg PO DAILY 7 days #7 ca ps 07/25/21 ondansetron 4 mg disintegrating 4 mg PO Q8H PRN nausea and 08/09/22 tablet vomiting #20 tabs amlodipine 5 mg tablet 5 mg PO DAILY #30 tabs 03/22 B-complex with vitamin C 1 cap PO DAILY 30 days #30 c aps 06/22/24 ketorolac 10 mg tablet 10 mg PO Q6H PRN pain #20 ta bs 03/10/25 Allergies Allergy/AdvReac Type Severity Reaction Status Date / Time exenatide Allergy Unknown Unknown Verified 03/09/25 16:59 Review of Systems 2 Review of Systems: Yes all other systems are reviewed and are negative Constitutional: Constitutional: Denies fatigue and Denies fever(s) Cardiovascular: Cardiovascular: Reports chest pain and Denies dyspnea Respiratory: Respiratory: Denies chest congestion, Reports cough, Denies dyspnea and Denies wheezing Gastrointestinal: Gastrointestinal: Denies abdominal pain, Denies nausea and Denies vomiting Endocrine: Endocrine: Denies fatigue Allergic/Immunologic: Allergic/Immunologic: Denies wheezing PMFSH Past Medical History Attestation statement: The following information was validated with the patient. Medical History Obesity Hypertriglyceridemia Anemia Asthma Kidney stone Mild nonproliferative diabetic retinopathy of both eyes without macular edema Diabetic polyneuropathy Restless leg syndrome Acute neck pain Petechiae Thyromegaly Chronic right hip pain Mood disorder Rash Chronic left shoulder pain Diabetes mellitus, type 2 Surgical History History of ankle surgery Family History Family History Father Cancer Mother Cancer Maternal Grandmother Diabetes mellitus Social History Social History Alcohol intake: never Patient Tobacco Use Status: Never used Tobacco Physical Exam 2 Vital Signs: Vital Signs: Last Vital Signs Temp 96.9 F 03/09/25 16:55 Pulse 73 03/09/25 16:55 Resp 20 03/09/25 16:55 BP 154/90 H 03/09/25 16:55 Pulse Ox 97 03/09/25 16:55 O2 Del Method Room Air 03/09/25 16:55 BMI result Body Mass Index 39.8 Const: Other: Alert Orientation/consciousness: patient oriented x3 Chest: Other: Pain elicited with palpation of central chest wall no deformity noted Resp: Other: Lungs clear to auscultation no wheezing Cardio: Other: Normal peripheral perfusion Skin: Other: Warm dry no rash Neuro: General: patient oriented x3, gait normal, no focal motor deficits and CN's II-XI intact bilaterally Psych: Other: Cooperative Course Course Course Narrative: This is a Rapid Medical Examination (RME) performed by Esteban Harris PA-C in triage. Full HPI, ROS, assessment and treatment plan per primary provider in the Main ED. Hx: 44 yo M hx ALEC here for eval of L sided chest pain x3 days, worse w/ coughing, deep breathing, touching the area, lying on his L side. no recent travel/long car rides. reports recent viral URI. Plan: labs, ekg, cxr, viral swabs Medical Decision Making Medical Decision Making MDM Narrative: 44-year-old male with a history of obesity, sleep apnea, and asthma who presents with chest pain x2 days. Patient states he has been having an ongoing dry cough for weeks. Over the past 2 days, the patient has developed central chest discomfort described as pleuritic. Pain worse with deep inspiration and with palpation of chest wall. Patient denies trauma, overuse injury or new heavy lifting. Denies fever. No recent travel, surgery. No relevant chronic issues History: Per patient I have considered the following differential diagnoses: ACS, PE, pneumonia, bronchitis, asthma exacerbation, chest wall strain, costochondritis Plan: ACS was considered, however the patient does not have risk factors for coronary artery disease beyond obesity, screening labs including cardiac enzymes and EKG obtained along with a chest x-ray. There was no pneumonia to account for his discomfort. Given ongoing cough and cold symptoms, he likely has costochondritis. He does not have a physical mechanism of injury for chest wall strain. Thought about PE, however he is PERC negative. I have independently reviewed the following tests: Labs: Slight leukocytosis, not anemic, no electrolyte abnormality noted, troponin less than 2.7 EKG: Normal sinus rhythm, rate of 71, no ischemic changes no ectopy QTC 404 Chest x-ray:FINDINGS: Normal heart and mediastinal contours. No consolidation. No pleural effusion or pneumothorax. No acute fracture. IMPRESSION: 1. No consolidation. Differential Diagnosis Differential Diagnoses: The differential diagnosis associated with the presentation includes See [facility] Admission/Observation Consideration of admission/observation: Escalation of care including admission/observation considered Not applicable Lab Data [facility] Lab Attestation statement: I reviewed the patient's lab results. 03/09/25 17:13 03/09/25 17:13 Labs: Lab Results 03/09/25 Range/Units 17:13 WBC 11.4 H (4.8-10.8) X10*3/uL RBC 4.66 (4.60-5.80) X10*6/uL Hgb 14.8 (14.0-18.0) g/dl Hct 43.8 (42.0-52.0) % MCV 94.0 (80.0-98.0) fL MCH 31.8 (27.0-33.0) pg MCHC 33.8 (31.0-36.0) g/dl RDW 13.1 (11.0-16.0) % Plt Count 280 (160-400) X10*3/uL MPV 11.2 (9.4-12.4) fL Immature Gran % (Auto) 0.8 H (0.0-0.4) % Neut % (Auto) 65.9 (45-73) % Lymph % (Auto) 24.3 (20-40) % [place] % (Auto) 7.4 (2-11) % Eos % (Auto) 1.1 (0-4) % Baso % (Auto) 0.5 (0-2) % Lymph # (Auto) 2.8 (1.2-4.9) X10*3/uL [place] # (Auto) 0.8 (0.1-1.2) X10*3/uL Eos # (Auto) 0.1 (0.0-0.4) X10*3/uL Baso # (Auto) 0.1 (0.0-0.2) X10*3/uL Abs Immat Gran (auto) 0.09 H (0.00-0.03) X10*3/uL Absolute Neuts (auto) 7.5 (2.0-8.3) x10*3/uL Absolute Nucleated RBC 0.000 (0.0-0.012) X10*3/uL Nucleated RBC % (auto) 0.0 (0.0-0.2) /100WBC Sodium 140 (135-145) mmol/L Potassium 4.1 (3.3-5.1) mmol/L Chloride 100 (96-108) mmol/L Carbon Dioxide 29 (22-29) mmol/L Anion Gap 15 (12-20) BUN 12 (9-16) mg/dL Creatinine 0.82 (0.5-1.4) mg/dL Estim Creat Clear Calc 119.8 Estimated GFR > 60 Random Glucose 74 (60-115) mg/dL Calcium 9.6 (8.4-10.2) mg/dL Magnesium 2.1 (1.6-2.6) mg/dL Total Bilirubin 0.8 (0.0-1.0) mg/dL AST 30 (5-37) U/L ALT 29 (0-40) U/L Alkaline Phosphatase 82 (39-117) U/L Troponin I High Sens < 2.7 (<3.5-35.0) ng/L Total Protein 7.9 (6.5-8.0) g/dL Albumin 4.8 (3.5-5.0) g/dL Influenza Type A (PCR) NEGATIVE (Negative) Influenza Type B (PCR) NEGATIVE (Negative) RSV RNA Qual (PCR) NEGATIVE (Negative) SARS-CoV-2 RNA (RT-PCR) NEGATIVE (Negative) Independent Interpretation I performed an independent interpretation of an: EKG Radiology Impression Discussion of test interpretation with radiology: I have reviewed the radiologist's reading. Discharge Plan Discharge Clinical Impression: Chest wall pain Patient Disposition: Home, Self-Care Instructions: Chest Wall Pain (ED) Additional Instructions: All of your screening labs including a cardiac enzymes were normal. There were no concerning changes on the EKG in the chest x-ray was clear. You pain is consistent with chest wall pain. See home care instructions. Take the ketorolac as directed take it with food. Follow up with your primary care provider as needed. Prescriptions: New ketorolac 10 mg tablet 10 mg PO Q6H PRN (Reason: pain) Qty: 20 0RF Rx Instructions: maximum total duration of 5 days from all oral, intranasal, or parenteral formulations, the patient received an intramuscular dose of Toradol here in the emergency room No Action tamsulosin 0.4 mg capsule 0.4 mg PO DAILY 7 Days Qty: 7 0RF B-complex with vitamin C Capsule 1 cap PO DAILY 30 Days Qty: 30 5RF nitrofurantoin monohyd/m-cryst [Macrobid] 100 mg capsule 100 mg PO Q12H 5 Days Qty: 10 0RF Rx Instructions: must administer with a meal/food tamsulosin [Flomax] 0.4 mg capsule 0.4 mg PO DAILY Qty: 7 0RF oxycodone 5 mg tablet 5 mg PO TID PRN (Reason: pain) Qty: 8 0RF ondansetron 4 mg tablet,disintegrating 4 mg PO Q8H PRN (Reason: nausea and vomiting) Qty: 20 0RF amlodipine 5 mg tablet 5 mg PO DAILY Qty: 30 0RF gabapentin 400 mg capsule 400 mg PO BEDTIME insulin glargine [Lantus Solostar U-100 Insulin] 100 unit/mL (3 mL) insulin pen 10 unit subcut QPM insulin lispro [Humalog Cristian KwikPen U-100] 100 unit/mL insulin pen, half- unit 1 sliding scale dose subcut USEASDIRECTD atorvastatin 10 mg tablet 10 mg PO DAILY (DME) FreeStyle Precision Kane Strips Strip See Rx Instructions .ROUTE TID Qty: 10 Rx Instructions: As directed triamcinolone acetonide 0.1 % cream topical hydroxyzine HCl 25 mg tablet PO alcohol swabs [Alcohol Prep Pads] Pads, Medicated topical QID (DME) pen needle, diabetic [TechLITE Pen Needle] 31 gauge x 5/16 needle See Rx Instructions .ROUTE QID Qty: 1200 Rx Instructions: As directed (DME) lancets [TRUEplus Lancets] 33 gauge misc See Rx Instructions .ROUTE TID Qty: 100 Rx Instructions: As directed Jardiance 25 mg tablet 25 mg PO DAILY (DME) FreeStyle Zulay 2 Sensor Kit See Rx Instructions .ROUTE Q2W Qty: 1 Rx Instructions: As directed lisinopril 20 mg tablet 20 mg PO QAM Stand Alone Forms: Work/School Release Print Language: Latvian
[2025-03-09 17:38] LABS: MANUAL DIFF FLAG NO
[2025-03-09 17:40] LABS: Hematocrit 43.8 % (42.0-52.0); Hemoglobin 14.8 g/dl (14.0-18.0); Imm Gran Abs Auto 0.09 X10*3/uL (0.00-0.03); Imm Gran Pct Auto 0.8 % (0.0-0.4); Lymphocytes Absolute Auto 2.8 X10*3/uL (1.2-4.9); Mean Corpuscular HGB Conc 33.8 g/dl (31.0-36.0); Mean Corpuscular Hemoglobin 31.8 pg (27.0-33.0); Mean Corpuscular Volume 94.0 fL (80.0-98.0); NRBC Abs Auto 0.000 X10*3/uL (0.0-0.012); NRBC Pct Auto 0.0 /100WBC (0.0-0.2); Platelet Count 280 X10*3/uL (160-400); Red Blood Count 4.66 X10*6/uL (4.60-5.80); White Blood Count 11.4 X10*3/uL (4.8-10.8)
[2025-03-09 17:54] LABS: Alanine Aminotransferase 29 U/L (0-40); Albumin Level 4.8 g/dL (3.5-5.0); Alkaline Phosphatase 82 U/L (39-117); Anion Gap 15 (12-20); Aspartate Amino Transferase 30 U/L (5-37); Blood Urea Nitrogen 12 mg/dL (9-16); Calcium 9.6 mg/dL (8.4-10.2); Carbon Dioxide 29 mmol/L (22-29); Chloride 100 mmol/L (96-108); Creatinine Clr Calc Pharmacy 119.8; Estimated Glomerular Filt Rate > 60; Magnesium 2.1 mg/dL (1.6-2.6); Potassium 4.1 mmol/L (3.3-5.1); Sodium 140 mmol/L (135-145); Total Protein 7.9 g/dL (6.5-8.0)
[2025-03-09 18:02] LABS: Troponin-I High Sensitivity < 2.7 ng/L (<3.5-35.0)
[2025-03-09 18:15] LABS: Resp Syncy Virus RNA Qual PCR NEGATIVE (Negative); SARS COV2 PCR INHOUSE NEGATIVE (Negative)
--- OUTSIDE RECORDS SUMMARY | 2025-03-10 01:04 | XMS_ITS | Encounter Summary ---
Author Organization [employer] Address [address] [facility] 7t [place] [address] Care Team Providers Care Machine Staker Name Role Phone Hanna Moyer MD Primary Care Provider [phone] Valentín Anguiano PharmD Unavailable [phone] Encounter Details Date Type Department Care Team (Latest Contact Info) Description 03/09/2025 Travel Social History Tobacco Use Types Packs/Day Years [...] Description 04/16/2025 2:00 PM EST Medication Management [facility] MEDICINE [address] [place] [address] Valentín Anguiano PharmD [address] [place] [address] 04/19/2025 10:00 AM EST Office Visit [facility] OPTOMETRY [address] [place] [address] Jigar, Marissa, OD 230 [place] [address] documented as of this encounter Goals Goal Patient Goal Type Associated Problems Recent Progress Patient-Stated? Author Blood Pressure < 140/90 Blood Pressure 158/116(03/09 4:22 PM EST) No Valentín Anguiano, PharmGopal Hemoglobin A1c < 7 Result Component 7(01/07/2025 9:38 AM EDT) No Valentín Anguiano PharmD Help patients manage their type 2 [...] Help patients manage their type 2 diabetes Hanan Feliz MD Patient has diabetic neuropathy Care Plan Patient has diabetic neuropathy No Hanna Moyer MD Weekly blood pressure task Care Plan Weekly blood pressure task Hanna Feliz MD Weekly blood pressure task Care Plan Weekly blood pressure task No Hanna Moyer MD Weekly blood pressure task Care Plan Weekly blood pressure task No Hanna Moyer MD Patient has diabetic eye disease Care Plan Patient has diabetic eye disease No Hanna Moyer MD Patient has diabetic eye disease Care Plan Patient has diabetic eye disease No Hanna Moyer MD Patient has diabetic eye disease Care Plan Patient has diabetic eye disease No Hanna Moyer MD Patient has chronic kidney disease Care Plan Patient has chronic kidney disease No Hanna Moyer MD Patient has chronic kidney disease Care Plan Patient has chronic kidney disease No Hanna Moyer MD Patient has chronic kidney disease Care Plan Patient has chronic kidney disease No Hanna Moyer MD Patient has diabetic neuropathy Care Plan Patient has diabetic neuropathy No Hanna Moyer MD Patient has diabetic neuropathy Care Plan Patient has diabetic neuropathy No Hanna Moyer MD Patient has diabetic neuropathy Care Plan Patient has diabetic neuropathy No Hanna Moyer MD Weekly blood pressure task Care Plan Weekly blood pressure task No Krystle Chengupe, SANDING MACHINE OPERATOR Weekly blood pressure task Care Plan Weekly blood pressure task No OkrolfoKrystleLatonya, SANDING MACHINE OPERATOR Weekly blood pressure task Care Plan Weekly blood pressure task No Krystle Chengupe, SANDING MACHINE OPERATOR Weekly blood pressure task Care Plan Weekly blood pressure task No Okrolfo Latonya, SANDING MACHINE OPERATOR Patient has diabetic eye disease Care Plan Patient has diabetic eye disease No Okhipo Latonya, SANDING MACHINE OPERATOR Patient has diabetic eye disease Care Plan Patient has diabetic eye disease No Okhipo Latonya, SANDING MACHINE OPERATOR Patient has diabetic eye disease Care Plan Patient has diabetic eye disease No Okhipo Latonya, SANDING MACHINE OPERATOR Patient has diabetic eye disease Care Plan Patient has diabetic eye disease No Okhipo Latonya, SANDING MACHINE OPERATOR Patient has chronic kidney disease Care Plan Patient has chronic kidney disease No Okhipo Latonya, SANDING MACHINE OPERATOR Patient has chronic kidney disease Care Plan Patient has chronic kidney disease No Okhipo Latonya, SANDING MACHINE OPERATOR Patient has chronic kidney disease Care Plan Patient has chronic kidney disease No Okhipo, Latonya, SANDING MACHINE OPERATOR Patient has chronic kidney disease Care Plan Patient has chronic kidney disease No Okhipo, Latonya, SANDING MACHINE OPERATOR Patient has diabetic neuropathy Care Plan Patient has diabetic neuropathy No Okhipo, Latonya, SANDING MACHINE OPERATOR Patient has diabetic neuropathy Care Plan Patient has diabetic neuropathy No Okhipo, Latonya, SANDING MACHINE OPERATOR Patient has diabetic neuropathy Care Plan Patient has diabetic neuropathy No Okhipo, Latonya, SANDING MACHINE OPERATOR Patient has diabetic neuropathy Care Plan Patient has diabetic neuropathy No Okhipo, Latonya, SANDING MACHINE OPERATOR Weekly blood pressure task Care Plan Weekly [...] filedocumented in this encounter Additional Health Concerns Active [...] documented as of this encounter Care Teams Machine Staker Relationship Specialty Start Date End Date Hanna Moyer MD [address] [place] [address] PCP - General Family Medicine 10/08/11 Valentín Anguiano, Sean [address] [place] [address] Pharmacist Internal Medicine 01/18/23 documented as of this encounter
--- OUTSIDE RECORDS SUMMARY | 2025-03-10 01:04 | XMS_ITS | Encounter Summary ---
Author Organization [employer] Address [address] [facility] 7t [place] [address] Care Team Providers Care Certified Tumor Registrar Name Role Phone Hanna Moyer MD Primary Care Provider [phone] Valentín Anguiano PharmD Unavailable [phone] Encounter Details Date Type Department Care Team (Late st Contact Info) Description 08/26/2023 Orders Only [facility]ICINE [address] [place], [place] [phone] Hanna Moyer MD [address] [place], [place] [phone] Primary hypertension (Primary Dx); Type 2 diabetes mellitus with hyperglycemia, with long-term current use of insulin ([facility]); Diplopia Social History Tobacco Use Types Packs/Day [...] Description 04/16/2025 2:00 PM EST Medication Management [facility] [address] [place] [address] Valentín Anguiano, Sean [address] [place] [address] 04/19/2025 10:00 AM EST Office Visit [facility] OPTOMETRY [address] [place] [address] Jigar, Marissa, OD [address] [place] [address] Scheduled Orders Name Type Priority Associated Diagnoses Orde r Schedule Albumin, Random Urine W/Creatinine Lab Routine Type 2 diabetes mellitus with hyperglycemia, with long-term current use of insulin ([facility]) Expected: 08/26/2023 (Approximate), Expires: 08/25/2024 Lipid Panel with Reflex to Direct LDL Lab Routine Type 2 diabetes mellitus with hyperglycemia, with long-term current use of insulin ([facility]) Expected: 08/26/2023 (Approximate), Expires: 08/25/2024 documented as [...] hyperglycemia, with long-term current use of insulin ([facility]) TSH W/REFLEX TO FT4 Routine 08/28/2023 1 0:55 AM EDT Primary hypertension Diplopia HEMOGLOBIN A1C Routine 08/28/2023 10:55 AM EDT Type 2 diabetes mellitus with hyperglycemia, with long-term current use of insulin ([facility]) documented in this encounter Results * TSH with Reflex to Free T4 (08/28/2023 10:55 AM EDT) TSH reflex Free T4 1.07 0.32 - 4.0 uIU/mL [facility] Blood 08/28/2023 10:5 5 AM EDT 08/28/2023 1:06 PM EDT us Hanna Moyer MD LAB BLOOD ORDERABLES Final Resul t [facility] [address] [place] [phone] * (ABNORMAL) Hemoglobin A1c (08/28/2023 10:55 AM EDT) Hemoglobin A1c 10.9(H) <6.0 % [facility] Comment:Hemoglobin A1C Refer ence Range Adults: 4.8 - 6.0 % Non diabetic: < 6.0 % Goal: < 7.0 %Additional Action Suggested: > 8.0 %Note: Hemoglobin A1c results are invalid for patients with abnormal amounts of HbF. Blood transfusions may impact the HbA1c concentration in the patient sample. Estimated Average Glucose 266 mg/dL [facility] Comment:eAG = Estimated ave rage glucose which is %A1C expressed asaverage glucose, using the formula of the A4K-MvqpzhkQstfgrn Glucose study (ADAG), Diabetes Care, Vol.31,#8,2007 Blood Venous blood specimen / Unknown 08/28/2023 10:55 AM EDT 08/28/2023 1:06 PM EDT Hanna Moyer MD LAB BLOOD ORDERABLES Final Resul t Performing Organization Address [facility] Co de Phone Number [facility] [address] [place] [phone] * Vitamin B12/Folate, Serum Panel (08/28/2023 10:55 AM EDT) Pathologist [facility] Vitamin B12 318 200 - 900 pg/mL [facility] Comment:NORMAL 200-900 PG/ML INDETERMINATE 160-199 PG/ML DEFICIENT < 160 PG/ML Folate 13.3 > or = 4.0 ng/mL [facility] Comment:Reference Values:> o r = [...] t Performing Organization Address [facility] de Phone Number [facility] [address] [place] [phone] documented in this encounter Visit Diagnoses Diagnosis Primary hypertension- Primary Unspecified essential hypertension Type 2 diabetes mellitus with hyperglycemia, with long-term current use of insulin (HCC) Diplopia documented in this encounter Additional Health Concerns Assessment Noted Time PHQ-9 Depression Total Score: 0 01/08/20 23 10:24 AM EDT documented as of this encounter Care Teams Certified Tumor Registrar Relationship Specialty Start Date End Date Hanna Moyer MD [address] [place] [address] PCP - General Family Medicine 10/08/11 Valentín Anguiano, PharmD [address] [place] [address] Pharmacist Internal Medicine 01/18/23 documented as of this encounter
--- OUTSIDE RECORDS SUMMARY | 2025-03-10 01:04 | XMS_ITS | Encounter Summary ---
Author Organization [employer] Address 75 [facility] 7t [place] [address] Care Team Providers Care Lusterer Name Role Phone Hanna Moyer MD Primary Care Provider [phone] Valentín Anguiano PharmD Unavailable Encounter Details Date Type Department Care Team (Late st Contact Info) Description 09/22/2024 Orders Only [facility] MEDICINE [address] [place], [place] [phone] Hanna Moyer MD [address] [place], [place] [phone] Social History Tobacco Use Types Packs/Day Years [...] Description 04/16/2025 2:00 PM EST Medication Management [facility] [address] [place] [address] Valentín Anguiano PharmD 230 [place] [address] 04/19/2025 10:00 AM EST Office Visit [facility] OPTOMETRY [address] [place] [address] Jigar, Marissa, OD [address] [place] [address] documented as of this encounter Goals Goal [...] documented as of this encounter Care Teams Lusterer Relationship Specialty Start Date End Date Hanna Moyer MD [address] [place] [address] PCP - General Family Medicine 10/08/11 Valentín Anguiano, PharmD [address] [place], [place] [address]Al[place] [address] Pharmacist Internal Medicine 01/18/23 documented as of this encounter
--- OUTSIDE RECORDS SUMMARY | 2025-03-10 01:04 | XMS_ITS | Encounter Summary ---
Author Organization [employer] Address 75 [facility] 7t [place] [address] Care Team Providers Care Assisted Living Manager Name Role Phone Hanna Moyer MD Primary Care Provider [phone] Valentín Anguiano PharmD Unavailable [phone] Reason for Visit * Reason Comments Med Refill Encounter Details Date Type Department Care Team (Late st Contact Info) Description 10/11/2023 Refill [facility] MEDICINE 230 [place], [place] [phone] Hanna Moyer MD [address] [place], [place] [phone] Type 2 diabetes mellitus with diabetic polyneuropathy, with long-term current use of insulin ([facility]) Social History Tobacco Use Types [...] Description 04/16/2025 2:00 PM EST Medication Management [facility] MED[facility] [address] [place] [address] Valentín Anguiano PharmD [address] [place] [address] 04/19/2025 10:00 AM EST Office Visit [facility] OPTOMETRY [address] [place] [address] Jigar, Marissa, OD [address] [place] [address] documented as of this encounter Goals Goal Patient Goal Type Associated Problems Recent Progress Patient-Stated? Author Blood Pressure < 140/90 Blood Pressure 158/116(03/09 4:22 PM EST) No Valentín Anguiano PharmD Hemoglobin A1c [...] documented as of this encounter Care Teams Assisted Living Manager Relationship Specialty Start Date End Date Hanna Moyer MD [address] [place] [address] PCP - General Family Medicine 10/08/11 Valentín Anguiano, PharmD [address] [place] [phone] Pharmacist Internal Medicine 01/18/23 documented as of this encounter
--- OUTSIDE RECORDS SUMMARY | 2025-03-10 01:04 | XMS_ITS | Encounter Summary ---
Author Organization [employer] [facility] Address [address] [facility] 7t [place] [address] Care Team Providers Care Cold Reduction Roller Name Role Phone Hanna Moyer MD Primary Care Provider [phone] Valentín Anguiano PharmD Unavailable [phone] Reason for Referral * Consultation (Routine) - Authorized Specialty Diagnoses / Procedures Referred By Contac t Referred To Contact Pharmacy Diagnoses Type 2 diabetes mellitus with hyperglycemia, with long-term current use of insulin (HCC) Primary hypertension Hanna Moyer MD [address] [place] [phone] Phone: tel: fax: Referral ID Status Reason Start Date Expiration Date Visits Requested Visits Authorized [id number] Authorized Consult and Treat 09/02/2024 09/02/2025 6 6 Encounter Details Date Type Department Care Team (Late st Contact Info) Description 09/02/2024 Orders Only [facility] MEDICINE [address] [place] [address] [phone] Hanna Moyer MD [address] [place] [address] [phone] Type 2 diabetes mellitus with hyperglycemia, with [...] Description 04/16/2025 2:00 PM EST Medication Management [facility] MEDICINE [address] [place] [address] Valentín Anguiano, PharmD [address] [place] [address] 04/19/2025 10:00 AM EST Office Visit [facility] OPTOMETRY [address] [place] [address] Marissa Kimball, OD [address] [place] [address] Scheduled Referrals Name Type Priority Associated Diagnoses Orde r Schedule Referral to Pharmacy CDTM Outpatient Referral Routine Type 2 diabetes mellitus with hyperglycemia, with long-term current use of insulin ([facility]) Primary hypertension Ordered: 09/02/2024 documented as of [...] hyperglycemia, with long-term current use of insulin ([facility])- Primary Primary hypertension Unspecified essential hypertension documented in this encounter Additional Health Concerns Assessment Noted Time PHQ-9 Depression Total Score: 14 025 12:01 PM EST documented as of this encounter Care Teams Cold Reduction Roller Relationship Specialty Start Date End Date Hanna Moyer MD [address] [place] [address] PCP - General Family Medicine 10/08/11 Valentín Anguiano PharmD [address] [place] [address] Pharmacist Internal Medicine 01/18/23 documented as of this encounter
--- OUTSIDE RECORDS SUMMARY | 2025-03-10 01:04 | XMS_ITS | Encounter Summary ---
Author Organization [employer] Address [address] [facility] 7t [place] [address] Care Team Providers Care Subgrade Roller Operator Name Role Phone Hanna Moyer MD Primary Care Provider [phone] Valentín Anguiano PharmD Unavailable [phone] Reason for Referral * Consultation (Routine) - Authorized Specialty Diagnoses / Procedures Referred By Linda johnson Referred To Contact Vascular Surgery Diagnoses Venous stasis dermatitis Hanna Moyer MD [address] [place] [address] Phone: tel: fax: [facility] Referral ID Status Reason Start Date Expiration Date Visits Requested Visits Authorized [id number] Authorized Specialty Services Required 12/28/2024 12/28/2025 1 1 Encounter Details Date Type Department Care Team (Late st Contact Info) Description 12/28/2024 Orders Only [facility] MEDICINE [address] [place] [address] Hanna Moyer MD [address] [place], [place] [phone] Venous stasis dermatitis (Primary Dx) Social History [...] 04/16/2025 2:00 PM EST Medication Management [facility] MED[facility] [address] [place] [address] Valentín Anguiano, PharmD [address] [place] [address] 04/19/2025 10:00 AM EST Office Visit [facility] OPTOMETRY [address] [place] [address] Marissa Kimball, OD [address] [place] [address] Scheduled Referrals Name Type Priority Associated Diagnoses [...] documented as of this encounter Care Teams Subgrade Roller Operator Relationship Specialty Start Date End Date Hanna Moyer MD [address] [place] [address] PCP - General Family Medicine 10/08/11 Valentín Anguiano PharmD [address] [place] [phone] Pharmacist Internal Medicine 01/18/23 documented as of this encounter
--- OUTSIDE RECORDS SUMMARY | 2025-03-10 01:04 | XMS_ITS | Encounter Summary ---
Author Organization [employer] Address 75 [facility] 7t [place] [address] Care Team Providers Care Body Make Up Artist Name Role Phone Hanna Moyer MD Primary Care Provider [phone] Valentín Anguiano PharmD Unavailable [phone] Encounter Details Date Type Department Care Team (Late st Contact Info) Description 03/03/2025 Orders Only [facility] MEDICINE [address] [place], [place] [phone] Hanna Moyer MD [address] [place], [place] [phone] Leg cramp (Primary Dx); Restless leg Social History Tobacco Use Types Packs/Day Years [...] Description 04/16/2025 2:00 PM EST Medication Management [facility] MEDICINE [address] [place] [address] Valentín Anguiano, PharmD [address] [place] [address] 04/19/2025 10:00 AM EST Office Visit [facility] OPTOMETRY [address] [place] [address] Jigar, Marissa, OD [address] [place] [address] Scheduled Orders Name Type Priority Associated Diagnoses Orde r Schedule Magnesium Lab Routine Leg cramp Restless leg Expected: 03/03/2025 (Approximate), Expires: 03/03/2026 Comprehensive Metabolic Panel Lab Routine Leg cramp Restless leg Expected: 03/03/2025 (Approximate), Expires: 03/03/2026 Ferritin Lab Routine Restless leg Expected: 03/03/2025 (Approximate), Expires: 03/03/2026 Iron And Total Iron Binding Capacity Lab Routine Restless leg Expected: 03/03/2025, Expires: 03/03/2026 documented as of this encounter Goals Goal Patient Goal Type Associated Problems Recent Progress Patient-Stated? Author Blood Pressure < 140/90 Blood Pressure 158/116(03/09 4:22 PM EST) Valentín Oneill PharmD Hemoglobin A1c < 7 Result Component [...] Patient has diabetic neuropathy Hanna Feliz MD Patient has diabetic neuropathy Care Plan Patient has diabetic neuropathy Hanna Feliz MD Patient has diabetic neuropathy Care Plan Patient has diabetic neuropathy Hanna Feliz MD documented as of this encounter Visit Diagnoses Diagnosis Leg cramp- Primary Cramp of limb Restless leg Restless legs syndrome (RLS) documented in this encounter Additional Health Concerns [...] neuropathy 03/03/2025 Patient has diabetic neuropathy 03/03/2025 Assessment Noted Time PHQ-9 Depression Total Score: 9 01/19/20 25 10:21 AM EDT documented as of this encounter Care Teams Body Make Up Artist Relationship Specialty Start Date End Date Hanna Moyer MD [address] [place] [address] PCP - General Family Medicine 10/08/11 Valentín Anguiano PharmD [address] [place] [address] Pharmacist Internal Medicine 01/18/23 documented as of this encounter
--- OUTSIDE RECORDS SUMMARY | 2025-03-10 01:04 | XMS_ITS | Encounter Summary ---
Author Organization [employer] Address [address] [facility] [address] [place] [address] Care Team Providers Care Signalman Name Role Phone Hanna Moyer MD Primary Care Provider [phone] Valentín Anguiano PharmD Unavailable [phone] Reason for Visit * Reason Onset Date Comments Nurse Triage 03/09/2025 Encounter Details Date Type Department Care Team ([facility] st Contact Info) Description 03/09/2025 Telephone [facility] [address] [place], [place] [phone] Hanna Moyer MD [address] [place] [address] Nurse Triage Social History Tobacco Use Types Packs/Day Years [...] encounter Miscellaneous Notes * Telephone Encounter - Carl Angel RN - 03/09/2025 4:24 PM EST Assessment: Patient presents to [facility] c/o left upper chest pain with diaphoresis x 2 days. Symptoms have been present for days. Symptoms are constant. Symptoms worsen with lying flat. Patient is taking (treatment/meds) hypertension meds. Recent ED visit or hospitalization: No. VS as follows (if applicable): Temp 99.0 orally HR 77 regular rate and rhythm Resp 16 none BP 158/116 left Arm; Device: Automatic Cuff Size: large O2 sat 97 % on room air Pain level: 5, Location: left upper chest Lung sounds (if applicable) Clear to auscultation bilaterally, Location: throughout Allergies[1] Current Medications[2] Patient Active Problem List Diagnosis Date Noted Depression 01/18/2025 Chronic left shoulder pain 04/20/2024 Rash 04/20/2024 Mood disorder (CMS/HCC) 04/20/2024 Chronic right hip pain 11/18/2023 Thyromegaly 11/18/2023 Petechiae 11/18/2023 Diplopia 09/26/2023 Neck pain 02/17/2023 Restless leg syndrome 10/14/2022 Type 2 diabetes mellitus (HCC) 10/10/2022 Diabetic polyneuropathy associated with type 2 diabetes mellitus (HCC) 07/22/2022 History of tobacco use 07/22/2022 Poor dentition 07/22/2022 ALEC (obstructive sleep apnea) 07/22/2022 Mild nonproliferative diabetic retinopathy of both eyes without macular edema associated with type 2 diabetes mellitus (HCC) 07/10/2022 Hypertension 07/10/2022 History of kidney stones 07/03/2016 Asthma 02/04/2013 Anemia 12/31/2011 Hypertriglyceridemia 12/31/2011 Obesity 12/31/2011 In Office Testing EKG obtained Blood Glucose 88 Plan of care: Report to Ephraim ROSA Provider evaluation: Yes Tx 324 ASA po Patient to return to waiting room to await Provider evaluation in the order of arrival Call for transport to ED, Call to expect placed to [[facility] 1540 EMS transported at 1615 Carl Angel RN [1] Allergies Allergen Reactions Exenatide [2] Current Outpatient Medications Medication Sig Dispense Refill Alcohol Swabs (Alcohol Prep) 70 % pads Use with insulin 4 times daily 100 each 11 amLODIPine (Norvasc) 5 MG tablet Take 1 tablet (5 mg) by mouth in the morning. 90 tablet 3 atorvastatin (Lipitor) 10 MG tablet TAKE 1 TABLET BY MOUTH EVERY DAY 90 tablet 3 B Complex-C (b complex-vitamin c) tablet Take 1 tablet by mouth Once per day. Blood Pressure Monitor kit Check blood pressure once daily and as needed 1 kit 0 Continuous Blood Gluc Coagulant Dipper (FreeStyle Zulay 2 Ferron) device Use as directed 1 each 1 Continuous Glucose Sensor (FreeStyle Zulay 2 Plus Sensor) [facility] 1 each every 15 days. Scan sensor every 8 hours to check blood sugars as directed. Change sensor every 15 days. 2 each 5 empagliflozin (Jardiance) 25 MG Take 1 tablet (25 mg) by mouth Once per day. 30 tablet 11 gabapentin (Neurontin) 400 MG capsule TAKE 1 CAPSULE BY MOUTH TWICE DAILY 60 capsule 0 glucose 4 g chewable tablet Chew 4 tablets (16 g) if needed for low blood sugar. 30 tablet 11 glucose blood (FreeStyle Precision Kane Test) test strip USE DIRECTED TO TEST BLOOD SUGAR THREE TIMES DAILY as needed for hypoglycemia or sensor failure. 50 strip 11 hydrocortisone 1 % cream Apply topically 2 times daily. 20 g 1 hydrOXYzine HCl (Atarax) 25 MG tablet Take 1 tablet by mouth before sleep study. May take additional tablet if 1 tablet is inadequate. 2 tablet 0 insulin glargine (Lantus SoloStar) 100 UNIT/ML pen Inject 48 units under the skin once daily 15 mL 5 insulin lispro (HumaLOG KWIKPEN) 100 UNIT/ML injection Inject 20 units under the skin three times daily before meals 15 mL 11 insulin pen needle (UltiCare Short Pen [place]) 31G X 8 mm misc USE FOUR TIMES DAILY 100 each 11 lisinopril 20 MG tablet TAKE 1 TABLET BY MOUTH EVERY MORNING 90 tablet 3 simethicone (Mylicon) 125 MG chewable tablet CHEW 1 TABLET BY MOUTH 4 TIMES A DAY IN THE MORNING, AT NOON, IN THE EVENING, AND AT BEDTIME NEEDED FOR GAS 30 tablet 0 triamcinolone (Kenalog) 0.1 % cream Apply topically if needed in the morning and at bedtime (pain and swelling). 80 g 1 TRUEplus Lancets 33G misc TEST BLOOD SUGAR THREE TIMES DAILY 100 each 11 Current Facility-Administered Medications Medication Dose Route Frequency Provider Last Rate Last Admin aspirin chewable tablet 324 mg 324 mg Oral Once SHELLEY Lackey documented in this encounter Plan of Treatment Upcoming Encounters Date Type Department Care Team (Late st Contact Info) Description 04/16/2025 2:00 PM EST Medication Management [facility] [address] [place] [address] Valentín Anguiano PharmD [address] [place] [address] 04/19/2025 10:00 AM EST Office Visit [facility] [address] [place] [address] Marissa Kimball, OD [address] [place] [address] documented as of this encounter Goals Goal [...] blood pressure task No Hanna Moyer MD Help patients manage their type 2 diabetes Care Plan Help patients manage their type 2 diabetes Hanna Feliz MD Patient has diabetic eye disease Care Plan Patient has diabetic eye disease No Hanna Moyer MD Help patients manage their type 2 diabetes Care Plan Help patients manage their type 2 diabetes Hanna Feliz MD Patient has chronic kidney disease Care Plan Patient has chronic kidney disease No Hanna Moyer MD Help patients manage their type 2 diabetes Care Plan Help patients manage their type 2 diabetes No Hanna Moyer MD Patient has diabetic [...] Weekly blood pressure task No Krystle Chengupe, LITERARY AGENT Weekly blood pressure task Care Plan Weekly blood pressure task No Krystle Chengupe, LITERARY AGENT Weekly blood pressure task Care Plan Weekly blood pressure task No Krystle Chengupe, LITERARY AGENT Weekly blood pressure task Care Plan Weekly blood pressure task No Okhipo, Latonya, LITERARY AGENT Patient has diabetic eye disease Care Plan Patient has diabetic eye disease No Okhipo, Latonya, LITERARY AGENT Patient has diabetic eye disease Care Plan Patient has diabetic eye disease No Okhipo, Latonya, LITERARY AGENT Patient has diabetic eye disease Care Plan Patient has diabetic eye disease No Okhipo, Latonya, LITERARY AGENT Patient has diabetic eye disease Care Plan Patient has diabetic eye disease No Okhipo, Latonya, LITERARY AGENT Patient has chronic kidney disease Care Plan Patient has chronic kidney disease No Okhipo, Latonya, LITERARY AGENT Patient has chronic kidney disease Care Plan Patient has chronic kidney disease No Okhipo, Latonya, LITERARY AGENT Patient has chronic kidney disease Care Plan Patient has chronic kidney disease No Okhipo, Latonya, LITERARY AGENT Patient has chronic kidney disease Care Plan Patient has chronic kidney disease No Okhipo, Latonya, LITERARY AGENT Patient has diabetic neuropathy Care Plan Patient has diabetic neuropathy No Okhipo, Latonya, LITERARY AGENT Patient has diabetic neuropathy Care Plan Patient has diabetic neuropathy No Okhipo, Latonya, LITERARY AGENT Patient has diabetic neuropathy Care Plan Patient has diabetic neuropathy No Okhipo, Latonya, LITERARY AGENT Patient has diabetic neuropathy Care Plan Patient has diabetic neuropathy No Okhipo, Latonya, LITERARY AGENT Weekly blood pressure task Care Plan Weekly [...] documented as of this encounter Care Teams Signalman Relationship Specialty Start Date End Date Hanna Moyer MD [address] [place] [address] PCP - General Family Medicine 10/08/11 Valentín Anguiano, Sean [address] [place] [address] Pharmacist Internal Medicine 01/18/23 documented as of this encounter
--- OUTSIDE RECORDS SUMMARY | 2025-03-10 01:04 | XMS_ITS | Encounter Summary ---
Author Organization [employer] Address [address] [facility] [address] [place] [address] Care Team Providers Care Remote Control Mirror Installer Name Role Phone Hanna Moyer MD Primary Care Provider [phone] Valentín Anguiano PharmD Unavailable [phone] Reason for Referral * Consultation (Routine) - Closed Specialty Diagnoses / Procedures Referred By Contguillermina t Referred To Contact Physical Therapy Diagnoses Chronic left shoulder pain Hanna Moyer MD [address] [place] [address] Phone: tel: fax: [facility] [address] [place] [address] Phone: tel: fax: Referral ID Status Reason Start Date Expiration Date V isits Requested Visits Authorized [id number] Closed Specialty Services Required 10/01/2024 10/01/2025 1 1 Encounter Details Date Type Department Care Team (Late st Contact Info) Description 10/01/2024 Orders Only [facility] [address] [place], [place] [phone] Hanna Moyer MD [address] [place], [place] [phone] Chronic left shoulder pain (Primary Dx) Social [...] is your housing situation today? I have kaimni daniels 11/05/[address] you [...] Description 04/16/2025 2:00 PM EST Medication Management [facility] [address] [place] [address] Valentín Anguiano, PharmD [address] [place] [address] 04/19/2025 10:00 AM EST Office Visit [facility] [address] [place] [address] Marissa Kimball, OD [address] [place] [address] Scheduled Referrals Name Type Priority Associated Diagnoses [...] documented as of this encounter Care Teams Remote Control Mirror Installer Relationship Specialty Start Date End Date Hanna Moyer MD [address] [place] [address] PCP - General Family Medicine 10/08/11 Valentín Anguiano PharmD [address] [place] [address] Pharmacist Internal Medicine 01/18/23 documented as of this encounter
--- OUTSIDE RECORDS SUMMARY | 2025-03-10 01:04 | XMS_ITS | Clinical Summary ---
Author Organization [employer] Address [address] [facility] 7t [place] [address] Care Team Providers Care Bus Info Consultant Name Role Phone Hanna Moyer MD Primary Care Provider [phone] Valentín Anguiano PharmD Unavailable [phone] Allergies Active Allergy Reactions Criticality Noted Date Comments Exenatide 10/13/2015 Medications Blood Pressure Monitor kit Check blood pressure once daily and as needed 1 kit 3 Active Continuous Blood Gluc Mechanical Shop Laborer (FreeStyle Zulay 2 [place]) device Use as directed 1 each 1 [...] hyperglycemia, with long-term current use of insulin ([facility]) Chew 4 tablets (16 g) if needed for low blood sugar. 30 tablet 5 026 Active Alcohol Swabs (Alcohol Prep) 70 % padsIndications: Type 2 diabetes mellitus with hyperglycemia, with long-term current use of insulin ([facility]) Use with insulin 4 times daily 100 each 5 Active insulin lispro (HumaLOG KWIKPEN) 100 UNIT/ML injectionIndicat ions:Type 2 diabetes mellitus with hyperglycemia, with long-term current use of insulin ([facility]) Inject 20 units under the skin three times daily before meals 15 mL 5 Active insulin pen needle (UltiCare Short Pen [place]) 31G X 8 mm miscIndications: Type 2 diabetes mellitus with hyperglycemia, with long-term current use of insulin ([facility]) USE FOUR TIMES DAILY 100 each 5 Active insulin glargine (Lantus SoloStar) 100 UNIT/ML penIndications:T ype 2 diabetes mellitus with hyperglycemia, with long-term current use of insulin ([facility]) Inject 48 units under the skin once daily 15 mL 5 5 Active atorvastatin (Lipitor) 10 MG tabletIndication s:Type 2 diabetes mellitus with hyperglycemia, with long-term current use of insulin ([facility]) TAKE 1 TABLET BY MOUTH EVERY DAY 90 tablet 5 Active amLODIPine (Norvasc) 5 MG tabletIndication s:Primary hypertension Take 1 tablet (5 mg) by mouth in the morning. 90 tablet 3 5 Active empagliflozin (Jardiance) 25 MGIndications:Ty pe 2 diabetes mellitus with hyperglycemia, with long-term current use of insulin ([facility]) Take 1 tablet (25 mg) by mouth Once per day. 30 tablet 11 5 026 Active glucose blood (FreeStyle Precision Kane Test) test stripIndications :Type 2 diabetes mellitus with hyperglycemia, with long-term current use of insulin ([facility]) USE DIRECTED TO TEST BLOOD SUGAR THREE [...] 15 days. 2 each 5 5 Active Hospital, Clinic, or Other Facility Administered Medication Ordered Dose Route Frequency Start Date End Date Status aspirin chewable tablet 324 mgIndications:Primary hypertension 324 mg PO Once 03/09/2025 Active Active Problems Problem Noted Date Diagnosed [...] AM EDT): - seen by Dr. Kimball, [facility], for diplopia. - Dx left [...] lifestyle modifications Last eye exam: Nov 2022, [facility], Mild nonproliferative diabetic retinopathy without [...] sooner prn Last eye exam: Nov 2022, [facility], Mild nonproliferative diabetic retinopathy without [...] sooner prn Last eye exam: Nov 2022, [facility], Mild nonproliferative diabetic retinopathy without [...] sooner prn Last eye exam: Nov 2022, [facility], Mild nonproliferative diabetic retinopathy without [...] if any problem arises - Referred to [facility] Assessment & Plan (07/22/2022 5:30 PM EDT): [...] Encounters Date Type Department Care Team Description 03/09/2025 3:40 PM EST Office Visit [facility] [address] [place] [phone] Latonya Cheng FNP Primary hypertension 03/09/2025 Telephone [facility] [address] [place] [address] Hanna Moyer MD Nurse Triage 03/09/2025 Travel 03/03/2025 Orders Only [address] [address] Hanna Moyer MD Leg cramp (Primary Dx); Restless leg 01/25/2025 2:00 PM EDT Office Visit [facility] [address] [place] [address] Latonya Cheng FNP Cough in adult patient (Primary Dx); Acute upper respiratory infection 01/25/2025 Travel 01/18/2025 9:30 AM EDT Office Visit [address] [address] Hanna Moyer MD Routine general medical examination at a health care facility (Primary Dx); Primary hypertension; Type 2 diabetes mellitus with hyperglycemia, with long-term current use of insulin (HCC); Mild nonproliferative diabetic retinopathy of both eyes without macular edema associated with type 2 diabetes mellitus (HCC); Mild intermittent asthma without complication; Moderate episode of recurrent major depressive disorder (CMS/HCC) (HCC); ALEC (obstructive sleep apnea); Restless leg syndrome; Psychophysiological insomnia; Petechiae; Class 2 severe obesity due to excess calories with serious comorbidity and body mass index (BMI) of 39.0 to 39.9 in adult; History of kidney stones; Mood disorder (CMS/HCC); Diabetic polyneuropathy associated with type 2 diabetes mellitus (HCC) 01/18/2025 Travel 01/15/[address] [phone] Hanna Moyer MD chartprep 01/11/2025 Patient Outreach [address] [phone] Hanna Moyer MD Pre-visit Planning (SDOH Screening completed on 11/16/2024) 01/07/2025 Travel 01/07/2025 Refill [facility] [address] [place] [address] Valentín Anguiano, PharmD Type 2 diabetes mellitus with hyperglycemia, with long-term current use of insulin (HCC) 12/28/2024 Orders Only [facility] [address] [place] [address] Hanna Moyer MD Venous stasis dermatitis (Primary Dx) 12/25/2024 9:15 AM EDT Office Visit [facility] [address] [place] [address] Praveen Sanchez MD Venous stasis dermatitis (Primary Dx) 12/25/2024 Travel 12/22/2024 Refill [facility] [address] [place] [address] Valentín Anguiano, Sean Type 2 diabetes mellitus with hyperglycemia, with long-term current use of insulin ([facility]) (Primary Dx); Primary hypertension 12/11/2024 Telephone [facility] [address] [place] [address] [place] 12/11/2024 Telephone [facility] [address] [place] [address] [place] 12/11/2024 Refill [facility] [address] [place] [address] Hanna Moyer MD Type 2 diabetes mellitus with hyperglycemia, with long-term current use of insulin ([facility]) from Last 3 Months Immunizations Immunization Administration Dates Next Due Hep B, adult 03/30/2019,11/15/2016,10/13/2015 Influenza Injectable Quadriv alant Preservative Free IIV4 MDCK 01/07/2023 Influenza injectable quadriv alent preservative free 03/27/2016 Influenza, IIV3, injectable 02/18/2014, 2,01/02/2010 Influenza, Split (incl. dominique fied surface antigen) 01/15/2013,12/31/2011 Influenza, seasonal, injecta ble, preservative free 01/07/2025,04/14/2024 Pfizer Covid-19 Vaccine 12+ 01/07/2025,,01/07/2023 Pneumococcal Conjugate PCV 20 07/10/2022 Pneumococcal Polysaccharide [...] EST Inhaled Oxygen Concentration - - Weight 98 kg (216 lb) 01/25/2025 1:53 PM EDT Height 157.5 cm (5' 2 ) 01/18/2025 9:40 AM EDT Body Mass Index 39.51 01/18/2025 9:40 AM EDT Plan of Treatment Upcoming Encounters Date Type Department Care Team (Late st Contact Info) Description 04/16/2025 2:00 PM EST Medication Management [facility] [address] [place] [address] Valentín Anguiano, PharmD [address] [place] [address] 04/19/2025 10:00 AM EST Office Visit [facility] [address] [place] [address] Marissa Kimball, OD [address] [place] [address] Health Maintenance Due Date Last Done Comments [...] Weekly blood pressure task No Okhipo, Latonya, FLOOR NURSE Weekly blood pressure task Care Plan Weekly blood pressure task No Okhipo, Latonya, FLOOR NURSE Weekly blood pressure task Care Plan Weekly blood pressure task No Okhipo, Latonya, FLOOR NURSE Weekly blood pressure task Care Plan Weekly blood pressure task No Okhipo, Latonya, FLOOR NURSE Patient has diabetic eye disease Care Plan Patient has diabetic eye disease No Okhipo, Latonya, FLOOR NURSE Patient has diabetic eye disease Care Plan Patient has diabetic eye disease No Okhipo, Latonya, FLOOR NURSE Patient has diabetic eye disease Care Plan Patient has diabetic eye disease No Okhipo, Latonya, FLOOR NURSE Patient has diabetic eye disease Care Plan Patient has diabetic eye disease No Okhipo, Latonya, FLOOR NURSE Patient has chronic kidney disease Care Plan Patient has chronic kidney disease No Okhipo, Latonya, FLOOR NURSE Patient has chronic kidney disease Care Plan Patient has chronic kidney disease No Okhipo, Latonya, FLOOR NURSE Patient has chronic kidney disease Care Plan Patient has chronic kidney disease No Okhipo, Latonya, FLOOR NURSE Patient has chronic kidney disease Care Plan Patient has chronic kidney disease No Okhipo, Latonya, FLOOR NURSE Patient has diabetic neuropathy Care Plan Patient has diabetic neuropathy No Okhipo, Latonya, FLOOR NURSE Patient has diabetic neuropathy Care Plan Patient has diabetic neuropathy No Okhipo, Latonya, FLOOR NURSE Patient has diabetic neuropathy Care Plan Patient has diabetic neuropathy No Okhipo, Latonya, FLOOR NURSE Patient has diabetic neuropathy Care Plan Patient has diabetic neuropathy No Okhipo, Latonya, FLOOR NURSE Weekly blood pressure task Care Plan Weekly [...] has diabetic neuropathy No Carl Angel RN Procedures Procedure Name Priority Date/Time Associated Diagnosis [...] hyperglycemia, with long-term current use of insulin ([facility]) ALBUMIN, RANDOM URINE W/CREATININE Routine 07/23/2024 1:19 PM EDT LIPID PANEL WITH REFLEX TO DIRECT LDL Routine 06/18/2024 8:38 AM EDT Type 2 diabetes mellitus with hyperglycemia, with long-term current use of insulin ([facility]) Hypertriglyceridemi a HEPATITIS C AB W/REFL TO HCV RNA, QN, PCR Routine 01/07/2023 11:35 AM EDT Type 2 diabetes mellitus with diabetic polyneuropathy, with long-term current use of insulin ([facility]) HIV 1/2 ANTIGEN/ANTIBODY, FOURTH GENERATION W/RFL Routine 04/19/2021 9:19 AM EST from Last 3 Months or Most Recently Relevant to Health Maintenance Results * Influenza B (ID NOW Rapid Molecular) (01/25/2025 2:06 PM EDT) Influenza B Negative Negative, Indeterminate [facility] Swab 01/25/2025 2:06 PM EDT Latonya The Personal Beehipo FLOOR NURSE POINT OF CARE TEST ENTER/EDIT ORDERABLES Final Result Performing Organization Address City/[facility]/ZIP Co de Phone Number [facility] [address] [place] [phone] * Influenza A (ID NOW Rapid Molecular) (01/25/2025 2:06 PM EDT) [facility] Influenza A Negative Negative, Indeterminate [facility] Swab 01/25/2025 2:06 PM EDT Latonya The Personal Beehipo FLOOR NURSE POINT OF CARE TEST ENTER/EDIT ORDERABLES Final Result Performing Organization Address City/[facility]/ZIP Co de Phone Number [facility] [address] [place] [phone] * POCT Rapid COVID Ag (01/25/2025 2:05 PM EDT) Pathologist [facility] Rapid COVID Ag Negative Swab 01/25/2025 2:05 PM EDT us Latonya Okhipo FLOOR NURSE POINT OF CARE TEST ENTER/EDIT ORDERABLES Final Result * (ABNORMAL) POCT Hgb A1c (01/07/2025 9:38 AM EDT) Pathologist [facility] Hemoglobin A1C 7.0(A) 4.0 - 5.7 % QC Media Lot # [id number] Lot# Expiration Date ,[id number] Blood 01/07/2025 9:38 AM EDT us Hanna Moyer MD POINT OF CARE TEST ENTER/EDIT OR DERABLES Final Result * Albumin, Random Urine W/Creatinine (07/23/2024 1:19 PM EDT) Creatinine, Urine 75.68 mg/dL [facility] Microalbumin Urine 19.0 mg/L [facility] Microalbum Creatinine Ratio Ur 25.1 <30 ug/mg cr [facility] Comment:Albumin/Creatinine R atio Reference Ranges: Normal: < 30 ug/mg creatinine Microalbuminuria: 30 - 300 ug/mg creatinineClinical Albuminuria: > 300 ug/mg creatinine 07/23/2024 1:19 PM EDT 07/23/2024 4:13 PM EDT us Hanna Moyer MD LAB URINE ORDERABLES Final Resul t Performing Organization Address City/State/[facility] Co de Phone Number [facility] [address] [place] [address] [phone] * (ABNORMAL) Lipid Panel with Reflex to Direct LDL (06/18/2024 8:38 AM EDT) Triglycerides 112 <150 mg/dL [facility] Comment:Desirable Triglyceri de: less than 150 mg/dLBorderline High Triglyceride 150-199 mg/dLHigh Triglyceride: 200-499 mg/dLVery High Triglyceride: greater than or equal to 5OO mg/dL Cholesterol 129 <200 mg/dL [facility] Comment:Desirable Cholestero l: less than 200 mg/dLBorderline High Cholesterol: 200-239 mg/dLHigh Cholesterol: greater than 239 mg/dL LDL Cholesterol Calculated 72 <100 mg/dL [facility] Comment:Desirable LDL: less than 100 mg/dLNear Optimal/Above Optimal LDL: 110- 129 mg/dLBorderline High LDL: 130-159 mg/dLHigh LDL: 160-189 mg/dLVery High LDL: greater than or equal to 190 mg/dL HDL Cholesterol 35(L) >40 mg/dL [facility] Comment:Desirable HDL: great er than 40 mg/dL Note: This HDL assay may give artificially low results in patients with liver disease. Blood 06/18/2024 8:38 AM EDT 06/18/2024 11:15 AM EDT Hanna Moyer MD LAB BLOOD ORDERABLES Final Resul t Performing Organization Address City/[facility]/ZIP Co de Phone Number [facility] [address] [place] [phone] * Hepatitis C Antibody with Reflex to HCV, RNA, Quantitative, Real-Time PCR (01/07/2023 11:35 AM EDT) Hepatitis C Antibody Nonreactive Nonreactive [facility] Comment:Antibodies to HCV no t detected; does not exclude early acuteHCV infection. Blood Venous blood specimen / Unknown 01/07/2023 11:35 AM EDT 01/07/2023 1:12 PM EDT Hanna Moyer MD LAB BLOOD ORDERABLES Final Resul t Performing Organization Address City/[facility]/ZIP Co de Phone Number [facility] [address] [place] [phone] * HIV 1/2 ANTIGEN/ANTIBODY,FOURTH GENERATION W/RFL (04/19/2021 9:19 AM EST) HIV-1/2 ANTIGEN AND ANTIBODIES, 4TH GENERATION W/ REFLEX NON-REACT BRIGETTE NON-REACT BRIGETTE [facility] Comment: HIV-1 antigen and HIV-1/HIV-2 [...] purpose. For additional information please refer to http://education.Dotstudioz/faq/QHJ946 (This link is being provided for informational/ educational purposes only.) The performance of this assay has not been clinically validated in patients less than 2 years old. 04/19/2021 9:19 AM EST us Hanna Moyer MD LAB BLOOD ORDERABLES Final Resul t [facility] [address] from Last 3 Months or Most Recently Relevant to Health Maintenance Additional Health Concerns Active Problems Noted Date [...] neuropathy 03/09/2025 Patient has diabetic neuropathy 03/09/2025 Insurance , [address] [place] [address] Care Teams Bus Info Consultant Relationship Specialty Start Date End Date Hanna Moyer MD [address] [place] [address] PCP - General Family Medicine 10/08/11 Valentín Anguiano, PharmD [address] [place] [address] Pharmacist Internal Medicine 01/18/23
--- OUTSIDE RECORDS SUMMARY | 2025-03-10 01:04 | XMS_ITS | Encounter Summary ---
Author Organization [employer] Address [address] [facility] 7t [place] [address] Care Team Providers Care Family Mediator Name Role Phone Hanna Moyer MD Primary Care Provider Valentín Anguiano PharmD Unavailable [phone] Reason for Referral * Consultation (Routine) - Closed Specialty Diagnoses / Procedures Referred By Linda johnson Referred To Contact Physical Therapy Diagnoses Chronic left shoulder pain Hanna Moyer MD [address] [place] [address] Phone: tel: fax: Referral ID Status Reason Start Date Expiration Date V isits Requested Visits Authorized [id number] Closed Specialty Services Required 08/11/2024 08/11/2025 1 1 Encounter Details Date Type Department Care Team (Late st Contact Info) Description 08/11/2024 Orders Only [facility] [address] [place], [place] [phone] Hanna Moyer MD [address] [place], [place] [phone] Chronic left shoulder pain (Primary Dx) Social [...] Description 04/16/2025 2:00 PM EST Medication Management [facility] [address] [place] [address] Valentín Anguiano, PharmD [address] [place] [address] 04/19/2025 10:00 AM EST Office Visit [facility] [address] [place] [address] Marissa Kimball, OD [address] [place] [address] Scheduled Referrals Name Type Priority Associated Diagnoses [...] PM EDT Narrative 08/12/2024 12:45 [place] [address] XRay Report Signed Patient: Zeb Topete MR#: [id number] : 1980 Acct:[id number] Age/Sex: 43 / M ADM Date: 08/12/24 Loc: HO.HHCX Attending Dr: Hanna Moyer MD Ordering Physician: Hanna Moyer MD Date of Service: 08/12/24 Procedure(s): XR shoulder LT min 2V Accession Number(s): [id number] cc: Hanna Moyer MD EXAMINATION: XR SHOULDER, [...] 08/12/24 1243 DD/ 1216 TD/TT: 08/12/24 1236 Oceanographer Assistant: Procedure Note Donotuseinterpreter, Image - 08/12/[address] [address] XRay Report Signed Patient: Zeb TopeteMR#: [id number] : 1980Acct:[id number] Age/Sex: 43 / MADM Date: 08/12/24 Loc: HO.HHCX Attending Dr: Hanna Moyer MD Ordering Physician: Hanna Moyer MD Date of Service: 08/12/24 Procedure(s): XR shoulder LT min 2V Accession Number(s): [id number] cc: Hanna Moyer MD EXAMINATION: XR SHOULDER, [...] 08/12/24 1243 DD/ 1216 TD/TT: 08/12/24 1236 Oceanographer Assistant: Hanna Moyer MD IMG XR PROCEDURES Final Result documented in this encounter Visit Diagnoses Diagnosis Chronic left shoulder pain- Primary Pain in joint, shoulder region documented in this encounter Additional Health Concerns Assessment Noted Time PHQ-9 Depression Total Score: 14 025 12:01 PM EST documented as of this encounter Care Teams Family Mediator Relationship Specialty Start Date End Date Hanna Moyer MD [address] [place] [address] PCP - General Family Medicine 10/08/11 Valentín Anguiano, Sean [address] [place] [address] Pharmacist Internal Medicine 01/18/23 documented as of this encounter
--- OUTSIDE RECORDS SUMMARY | 2025-03-10 01:04 | XMS_ITS | Encounter Summary ---
Author Organization [facility] Address [address] [facility] 7t [place] [address] Care Team Providers Care Vending Machine Attendant Name Role Phone Hanna Moyer MD Primary Care Provider [phone] Valentín Anguiano PharmD Unavailable [phone] Reason for Referral * Consultation (Routine) - Closed Specialty Diagnoses / Procedures Referred By Contguillermina t Referred To Contact Pharmacy Diagnoses Type 2 diabetes mellitus with hyperglycemia, with long-term current use of insulin (HCC) Primary hypertension Hanna Moyer MD [address] [place] [address] Phone: tel: fax: Referral ID Status Reason Start Date Expiration Date V isits Requested Visits Authorized [id number] Closed Consult and Treat 01/17/2024 01/16/2025 6 6 Encounter Details Date Type Department Care Team (Late st Contact Info) Description 01/17/2024 Orders Only [facility] [address] [place] [phone] Hanna Moyer MD [address] [place], [place] [phone] Type 2 diabetes mellitus with hyperglycemia, with [...] 04/16/2025 2:00 PM EST Medication Management [facility] [address] [place] [address] Valentín Anguiano, PharmD [address] [place] [address] 04/19/2025 10:00 AM EST Office Visit [facility] [address] [place] [address] Marissa Kimball, OD [address] [place] [address] Scheduled Referrals Name Type Priority Associated Diagnoses Orde r Schedule Referral to Pharmacy CDTM Outpatient Referral Routine Type 2 diabetes mellitus with hyperglycemia, with long-term current use of insulin ([facility]) Primary hypertension Ordered: 01/17/2024 documented [...] hyperglycemia, with long-term current use of insulin ([facility])- Primary Primary hypertension Unspecified essential hypertension documented in this encounter Additional Health Concerns Assessment Noted Time PHQ-9 Depression Total Score: 0 01/08/20 23 10:24 AM EDT documented as of this encounter Care Teams Vending Machine Attendant Relationship Specialty Start Date End Date Hanna Moyer MD [address] [place] [address] PCP - General Family Medicine 10/08/11 Valentín Anguiano PharmD [address] [place] [address] Pharmacist Internal Medicine 01/18/23 documented as of this encounter
[2025-03-10 01:20] VITALS: BP 128/76; PULSE 76; RESP 18; TEMP 36.4; O2SAT 97
[2025-03-10 01:21] VITALS: BP 128/76; PULSE 76; RESP 18; TEMP 36.4; O2SAT 97
== END 2025-03-10 01:24 | disposition home or self-care (01) ==
PROVIDERS: Physician Assistant Medical; Emergency Provider Emergency Medicine; PCP Family Medicine
DX: R07.89 Other chest pain (principal); R05.9 Cough, unspecified; Z03.818 Encounter for observation for suspected exposure to other biological agents ruled out; E11.9 Type 2 diabetes mellitus without complications; J45.909 Unspecified asthma, uncomplicated
CPT/HCPCS: 36415; 71046; 80053; 83735; 84484; 85025; 87637; 93005; 96372; 99284; J1885

== ENCOUNTER → 2025-03-09 16:37 | Outpatient (BNV) | payer OTHER, SELFPAY | PROVIDERS: Emergency Provider Emergency Medicine; PCP Family Medicine; Visit Provider Internal Medicine | DX: R07.9 Chest pain, unspecified (principal) | CPT/HCPCS: 93010 ==

== ENCOUNTER → 2025-03-09 16:57 | Outpatient (BNV) | payer OTHER, SELFPAY | PROVIDERS: Visit Provider Radiology Diagnostic Radiology | DX: R07.89 Other chest pain (principal) | CPT/HCPCS: 71046 ==

== ENCOUNTER → 2025-03-29 08:32 | Outpatient (REF) | payer OTHER, SELFPAY ==
--- OUTSIDE RECORDS SUMMARY | 2025-03-29 08:48 | XMS_ITS | Encounter Summary ---
Author Organization [employer] Address [address] [facility] 7t [place] [address] Care Team Providers Care Rn Chronic Name Role Phone Hanna Moyer MD Primary Care Provider [phone] Valentín Anguiano PharmD Unavailable [phone] Reason for Referral * Consultation (Routine) - Authorized Specialty Diagnoses / Procedures Referred By Linda johnson Referred To Contact Vascular Surgery Diagnoses Venous stasis dermatitis Hanna Moyer MD [address] [place] [address] Phone: tel: fax: [facility] Referral ID Status Reason Start Date Expiration Date Visits Requested Visits Authorized [id number] Authorized Specialty Services Required 12/28/2024 12/28/2025 1 1 Encounter Details Date Type Department Care Team (Late st Contact Info) Description 12/28/2024 Orders Only [facility] [address] [place] [address] Hanna Moyer MD [address] [place], [place] [phone] Venous stasis dermatitis (Primary Dx) Social History [...] Description 04/16/2025 2:00 PM EST Medication Management [facility] [address] [place] [address] Valentín Anguiano, PharmD [address] [place] [address] 04/19/2025 10:00 AM EST Office Visit [facility] [address] [place] [address] Marissa Kimball, OD [address] [place] [address] Scheduled Referrals Name Type Priority Associated Diagnoses [...] as of this encounter Care Teams Rn Chronic Relationship Specialty Start Date End Date Hanna Moyer MD [address] [place] [address] PCP - General Family Medicine 10/08/11 Valentín Anguiano PharmD [address] [place] [phone] Pharmacist Internal Medicine 01/18/23 documented as of this encounter
--- OUTSIDE RECORDS SUMMARY | 2025-03-29 08:48 | XMS_ITS | Encounter Summary ---
Author Organization [employer] Address [address] [facility] 7t [place] [address] Care Team Providers Care Assistant Field Hockey Coach Name Role Phone Hanna Moyer MD Primary Care Provider [phone] Valentín Anguiano PharmD Unavailable [phone] Encounter Details Date Type Department Care Team (Late st Contact Info) Description 09/22/2024 Orders Only [facility] [address] [place], [place] [phone] Hanna Moyer MD [address] [place], [place] [phone] Social History Tobacco Use Types Packs/Day Years [...] Description 04/16/2025 2:00 PM EST Medication Management [facility] [address] [place] [address] Valentín Anguiano PharmD [address] [place] [address] 04/19/2025 10:00 AM EST Office Visit [facility] [address] [place] [address] Jigar, Marissa, OD [address] [place] [address] documented as of this encounter Goals Goal [...] documented as of this encounter Care Teams Assistant Field Hockey Coach Relationship Specialty Start Date End Date Hanna Moyer MD [address] [place] [address] PCP - General Family Medicine 10/08/11 Valentín Anguiano, PharmD [address] [place], [place] [address] [address] Pharmacist Internal Medicine 01/18/23 documented as of this encounter
--- OUTSIDE RECORDS SUMMARY | 2025-03-29 08:48 | XMS_ITS | Encounter Summary ---
Author Organization [employer] [facility] Address [address] [facility] 7t [place] [address] Care Team Providers Care Physical Anthropologist Name Role Phone Hanna Moyer MD Primary Care Provider [phone] Valentín Anguiano PharmD Unavailable [phone] Reason for Referral * Consultation (Routine) - Closed Specialty Diagnoses / Procedures Referred By Contguillermina t Referred To Contact Pharmacy Diagnoses Type 2 diabetes mellitus with hyperglycemia, with long-term current use of insulin (HCC) Primary hypertension Hanna Moyer MD [address] [place] [address] Phone: tel: fax: Referral ID Status Reason Start Date Expiration Date V isits Requested Visits Authorized [id number] Closed Consult and Treat 01/17/2024 01/16/2025 6 6 Encounter Details Date Type Department Care Team (Late st Contact Info) Description 01/17/2024 Orders Only [facility] MEDICINE [address] [place] [address] [phone] Hanna Moyer MD [address] [place], [place] [phone] Type 2 diabetes mellitus with hyperglycemia, with [...] Description 04/16/2025 2:00 PM EST Medication Management [facility] MEDICINE [address] [place] [address] Valentín Anguiano, PharmD [address] [place] [address] 04/19/2025 10:00 AM EST Office Visit [facility] OPTOMETRY [address] [place] [address] Marissa Kimball, OD [address] [place] [address] Scheduled Referrals Name Type Priority Associated Diagnoses Orde r Schedule Referral to Pharmacy CDTM Outpatient Referral Routine Type 2 diabetes mellitus with hyperglycemia, with long-term current use of insulin ([facility]) Primary hypertension Ordered: 01/17/2024 documented as of [...] hyperglycemia, with long-term current use of insulin ([facility])- Primary Primary hypertension Unspecified essential hypertension documented in this encounter Additional Health Concerns Assessment Noted Time PHQ-9 Depression Total Score: 0 01/08/20 23 10:24 AM EDT documented as of this encounter Care Teams Physical Anthropologist Relationship Specialty Start Date End Date Hanna Moyer MD [address] [place] [address] PCP - General Family Medicine 10/08/11 Valentín Anguiano PharmD [address] [place] [address] Pharmacist Internal Medicine 01/18/23 documented as of this encounter
--- OUTSIDE RECORDS SUMMARY | 2025-03-29 08:48 | XMS_ITS | Encounter Summary ---
Author Organization [employer] Address [address] [facility] 7t [place] [address] Care Team Providers Care Production Troubleshooter Name Role Phone Hanna Moyer MD Primary Care Provider [phone] Valentín Anguiano PharmD Unavailable [phone] Reason for Referral * Consultation (Routine) - Closed Specialty Diagnoses / Procedures Referred By Contguillermina t Referred To Contact Physical Therapy Diagnoses Chronic left shoulder pain Hanna Moyer MD [address] [place] [address] Phone: tel: fax: [facility] Physical [facility] [address] [place] [address] Phone: tel: fax: Referral ID Status Reason Start Date Expiration Date V isits Requested Visits Authorized [id number] Closed Specialty Services Required 10/01/2024 10/01/2025 1 1 Encounter Details Date Type Department Care Team (Late st Contact Info) Description 10/01/2024 Orders Only [facility] MEDICINE [address] [place], [place] [phone] Hanna Moyer MD [address] [place], [place] [phone] Chronic left shoulder pain (Primary Dx) Social [...] [facility] MEDICINE [address] [place] [address] Valentín Anguiano, PharmD [address] [place] [address] 04/19/2025 10:00 AM EST Office Visit [facility] OPTOMETRY [address] [place] [address] Marissa Kimball, OD [address] [place] [address] Scheduled Referrals Name Type Priority Associated Diagnoses [...] documented as of this encounter Care Teams Production Troubleshooter Relationship Specialty Start Date End Date Hanna Moyer MD [address] [place] [address] PCP - General Family Medicine 10/08/11 Valentín Anguiano PharmD [address] [place] [address] Pharmacist Internal Medicine 01/18/23 documented as of this encounter
--- OUTSIDE RECORDS SUMMARY | 2025-03-29 08:48 | XMS_ITS | Encounter Summary ---
Author Organization [employer] Address [address] [place] [address] Care Team Providers Care Grief Counsellor Name Role Phone Hanna Moyer MD Primary Care Provider [phone] Valentín Anguiano PharmD Unavailable [phone] Encounter Details Date Type Department Care Team (Late st Contact Info) Description 08/26/2023 Orders Only [facility] MEDICINE [address] [place], [place] [phone] Hanna Moyer MD [address] [place], [place] [phone] Primary hypertension (Primary Dx); Type 2 diabetes mellitus with hyperglycemia, with long-term current use of insulin ([facility]); Diplopia Social History Tobacco [...] [facility] [address] [place] [address] Valentín Anguiano, Sean [address] [place] [address] 04/19/2025 10:00 AM EST Office Visit [facility] OPTOMETRY [address] [place] [address] Jigar, Marissa, OD [address] [place] [address] Scheduled Orders Name Type Priority Associated Diagnoses Orde r Schedule Albumin, Random Urine W/Creatinine Lab Routine Type 2 diabetes mellitus with hyperglycemia, with long-term current use of insulin ([facility]) Expected: 08/26/2023 (Approximate), Expires: 08/25/2024 Lipid Panel with Reflex to Direct LDL Lab Routine Type 2 diabetes mellitus with hyperglycemia, with long-term current use of insulin ([facility]) Expected: 08/26/2023 (Approximate), Expires: [...] hyperglycemia, with long-term current use of insulin ([facility]) TSH W/REFLEX TO FT4 Routine 08/28/2023 1 0:55 AM EDT Primary hypertension Diplopia HEMOGLOBIN A1C Routine 08/28/2023 10:55 AM EDT Type 2 diabetes mellitus with hyperglycemia, with long-term current use of insulin ([facility]) documented in this encounter Results * TSH with Reflex to Free T4 (08/28/2023 10:55 AM EDT) TSH reflex Free T4 1.07 0.32 - 4.0 uIU/mL [facility] Blood 08/28/2023 10:5 5 AM EDT 08/28/2023 1:06 PM EDT us Hanna Moyer MD LAB BLOOD ORDERABLES Final Resul t [facility] [address] [place] [phone] * (ABNORMAL) Hemoglobin A1c (08/28/2023 10:55 AM EDT) Hemoglobin A1c 10.9(H) <6.0 % [facility] Comment:Hemoglobin A1C Refer ence Range Adults: 4.8 - 6.0 % Non diabetic: < 6.0 % Goal: < 7.0 %Additional Action Suggested: > 8.0 %Note: Hemoglobin A1c results are invalid for patients with abnormal amounts of HbF. Blood transfusions may impact the HbA1c concentration in the patient sample. Estimated Average Glucose 266 mg/dL [facility] Comment:eAG = Estimated ave rage glucose which is %A1C expressed asaverage glucose, using the formula of the O9C-PdprkogHfhrvyz Glucose study (ADAG), Diabetes Care, Vol.31,#8,2007 Blood Venous blood specimen / Unknown 08/28/2023 10:55 AM EDT 08/28/2023 1:06 PM EDT Hanna Moyer MD LAB BLOOD ORDERABLES Final Resul t Performing Organization Address [facility] Co de Phone Number [facility] [address] [place] [phone] * Vitamin B12/Folate, Serum Panel (08/28/2023 10:55 AM EDT) Vitamin B12 318 200 - 900 pg/mL [facility] Comment:NORMAL 200-900 PG/M L INDETERMINATE 160-199 PG/ML DEFICIENT < 160 PG/ML Folate 13.3 > or = 4.0 ng/mL [facility] Comment:Reference Values:> o r = 4.0 ng/mL< 4.0 ng/mL suggests folate deficiency Methotrexate, aminopterin and folinic acid(leucovorin) are chemotherapeutic agents whose molecularstructures are similar to folate; therefore, the Architectfolate assay cannot be used for patients using these drugs. 08/28/2023 10:5 5 AM EDT 08/28/2023 1:06 PM EDT Hanna Moyer MD LAB BLOOD ORDERABLES Final Resul t Performing Organization Address [facility] de Phone Number [facility] [address] [place] [phone] documented in this encounter Visit Diagnoses Diagnosis Primary hypertension- Primary Unspecified essential hypertension Type 2 diabetes mellitus with hyperglycemia, with long-term current use of insulin (HCC) Diplopia documented in this encounter Additional Health Concerns Assessment Noted Time PHQ-9 Depression Total Score: 0 01/08/20 23 10:24 AM EDT documented as of this encounter Care Teams Grief Counsellor Relationship Specialty Start Date End Date Hanna Moyer MD [address] [place] [address] PCP - General Family Medicine 10/08/11 Valentín Anguiano, PharmD [address] [place] [address] Pharmacist Internal Medicine 01/18/23 documented as of this encounter
--- OUTSIDE RECORDS SUMMARY | 2025-03-29 08:48 | XMS_ITS | Encounter Summary ---
Author Organization [employer] Address [address] [facility] 7t [place] [address] Care Team Providers Care Zipper Cutter Name Role Phone Hanna Moyer MD Primary Care Provider [phone] Valentín Anguiano PharmD Unavailable [phone] Reason for Visit * Reason Comments Med Refill Encounter Details Date Type Department Care Team (Late st Contact Info) Description 10/11/2023 Refill [facility] MEDIC[facility] [address] [place], [place] [phone] Hanna Moyer MD [address] [place], [place] [phone] Type 2 diabetes mellitus with diabetic polyneuropathy, with long-term current use of insulin ([facility]) Social History Tobacco Use Types Packs/Day Years [...] Description 04/16/2025 2:00 PM EST Medication Management [facility] MEDIC[facility] [address] [place] [address] Valentín Anguiano PharmD [address] [place] [address] 04/19/2025 10:00 AM EST Office Visit [facility] OPTOMETRY [address] [place] [address] Jigar, Marissa, OD [address] [place] [address] documented as of this encounter Goals Goal [...] documented as of this encounter Care Teams Zipper Cutter Relationship Specialty Start Date End Date Hanna Moyer MD [address] [place] [address] PCP - General Family Medicine 10/08/11 Valentín Anguiano, PharmD [address] [place] [phone] Pharmacist Internal Medicine 01/18/23 documented as of this encounter
--- OUTSIDE RECORDS SUMMARY | 2025-03-29 08:48 | XMS_ITS | Encounter Summary ---
Author Organization [employer] Address [address] [facility] 7[address] [place] [address] Care Team Providers Care Data Developer Name Role Phone Hanna Moyer MD Primary Care Provider [phone] Valentín Anguiano PharmD Unavailable [phone] Encounter Details Date Type Department Care Team (Late st Contact Info) Description 03/03/2025 Orders Only [facility] MEDICINE [address] [place], [place] [phone] Hanna Moyer MD [address] [place], [place] [phone] Leg cramp (Primary Dx); Restless leg Social [...] Description 04/16/2025 2:00 PM EST Medication Management [facility] MED[facility] [address] [place] [address] Valentín Anguiano, PharmD [address] [place] [address] 04/19/2025 10:00 AM EST Office Visit [facility] OPTOMETRY [address] [place] [address] Jigar, Marissa, OD [address] [place] [address] Scheduled Orders Name Type Priority Associated Diagnoses [...] documented as of this encounter Care Teams Data Developer Relationship Specialty Start Date End Date Hanna Moyer MD [address] [place] [address] PCP - General Family Medicine 10/08/11 Valentín Anguiano PharmD [address] [place] [address] Pharmacist Internal Medicine 01/18/23 documented as of this encounter
--- OUTSIDE RECORDS SUMMARY | 2025-03-29 08:48 | XMS_ITS | Clinical Summary ---
Author Organization [employer] Address [address] [facility] 7t [place] [address] Care Team Providers Care Mophead Sewer Name Role Phone Hanna Moyer MD Primary Care Provider [phone] Valentín Anguiano PharmD Unavailable [phone] Allergies Active Allergy Reactions Criticality Noted Date Comments Exenatide 10/13/2015 Medications Blood Pressure Monitor kit Check blood pressure once daily and as needed 1 kit 3 Active Continuous Blood Gluc Aircraft Electrical Systems Specialist (FreeStyle Zulay 2 [place]) device Use as directed 1 each 1 [...] SUGAR THREE TIMES DAILY 100 each 11 03/15/2025 3:43 PM EST 5 Active hydrOXYzine HCl (Atarax) 25 MG [...] long-term current use of insulin ([facility]) Chew 4 tablets (16 g) if needed for low blood sugar. 30 tablet 11 5 026 Active Alcohol Swabs (Alcohol Prep) 70 % padsIndications: Type 2 diabetes mellitus with hyperglycemia, with long-term current use of insulin ([facility]) Use with insulin 4 times daily 100 each 03/15/2025 3:43 PM EST 5 Active insulin lispro (HumaLOG KWIKPEN) 100 UNIT/ML injectionIndicat ions:Type 2 diabetes mellitus with hyperglycemia, with long-term current use of insulin ([facility]) Inject 20 units under the skin three times daily before meals 15 mL 5 Active insulin pen needle (UltiCare Short Pen [place]) 31G X 8 mm miscIndications: Type 2 diabetes mellitus with hyperglycemia, with long-term current use of insulin ([facility]) USE FOUR TIMES DAILY 100 each 03/15/2025 3:43 PM EST 5 Active insulin glargine (Lantus SoloStar) 100 UNIT/ML penIndications:T ype 2 diabetes mellitus with hyperglycemia, with long-term current use of insulin ([facility]) Inject 48 units under the skin once daily 15 mL 03/15/2025 3:43 PM EST 5 Active atorvastatin (Lipitor) 10 MG tabletIndication s:Type 2 diabetes mellitus with hyperglycemia, with long-term current use of insulin ([facility]) TAKE 1 TABLET BY MOUTH EVERY DAY 90 tablet 3 5 Active amLODIPine (Norvasc) 5 MG tabletIndication s:Primary hypertension Take 1 tablet (5 mg) by mouth in the morning. 90 tablet 3 5 Active empagliflozin (Jardiance) 25 MGIndications:Ty pe 2 diabetes mellitus with hyperglycemia, with long-term current use of insulin ([facility]) Take 1 tablet (25 mg) by mouth Once per day. 30 tablet 11 03/15/2025 3:43 PM EST 5 026 Active glucose blood (FreeStyle Precision [place] Test) test stripIndications :Type 2 diabetes mellitus with hyperglycemia, with long-term current use of insulin (HCC) USE DIRECTED TO TEST BLOOD SUGAR THREE TIMES DAILY as needed for hypoglycemia or sensor failure. 50 strip 11 03/15/2025 3:43 PM EST 5 Active Continuous Glucose Sensor (FreeStyle Zulay [...] mgIndications:Primary hypertension 324 mg PO Once 03/09/2025 03/09/2025 Ended Active Problems Problem Noted Date Diagnosed Date Chest pain on breathing 03/12/2025 Depression 01/18/2025 Assessment & Plan (01/29/2025 10:24 [...] AM EDT): - seen by Dr. Kimball, [facility], for diplopia. - Dx left [...] lifestyle modifications Last eye exam: Nov 2022, [facility], Mild nonproliferative diabetic retinopathy without [...] sooner prn Last eye exam: Nov 2022, [facility], Mild nonproliferative diabetic retinopathy without [...] sooner prn Last eye exam: Nov 2022, [facility], Mild nonproliferative diabetic retinopathy without [...] sooner prn Last eye exam: Nov 2022, [facility], Mild nonproliferative diabetic retinopathy without [...] if any problem arises - Referred to TM Assessment & Plan (10/14/2022 5:49 PM EDT): [...] Description 03/09/2025 3:40 PM EST Office Visit [facility] [address] [place] [address] Latonya Cheng, DRAG OUT MAN Chest pain on breathing (Primary Dx); Primary hypertension 03/09/2025 Telephone [facility] [address] [place] [address] Hanna Moyer MD Nurse Triage 03/09/2025 Travel 03/03/2025 Orders Only [facility] MEDICINE [address] [place] [address] Hanna Moyer MD Leg cramp (Primary Dx); Restless leg 01/25/2025 2:00 PM EDT Office Visit [facility] [address] [place] [address] Latonya Cheng FNP Cough in adult patient (Primary Dx); Acute upper respiratory infection 01/25/2025 Travel 01/18/2025 9:30 AM EDT Office Visit [facility] MEDICINE [address] [place] [address] Hanna Moyer MD Routine general medical examination at a health care facility (Primary Dx); Primary hypertension; Type 2 diabetes mellitus with hyperglycemia, with long-term current use of insulin ([facility]); Mild nonproliferative diabetic retinopathy of both eyes without macular edema associated with type 2 diabetes mellitus (HCC); Mild intermittent asthma without complication; Moderate episode of recurrent major depressive disorder (CMS/HCC) ([facility]); ALEC (obstructive sleep apnea); Restless leg syndrome; Psychophysiological insomnia; Petechiae; Class 2 severe obesity due to excess calories with serious comorbidity and body mass index (BMI) of 39.0 to 39.9 in adult; History of kidney stones; Mood disorder (CMS/HCC); Diabetic polyneuropathy associated with type 2 diabetes mellitus (HCC) 01/18/2025 Travel 01/15/2025 Telephone [facility] MEDICINE [address] [place] [phone] Hanna Moyer MD chartprep 01/11/2025 Patient Outreach [address] [address] Hanna Moyer MD Pre-visit Planning (SDOH Screening completed on 11/16/2024) 01/07/2025 Travel 01/07/[address] [address] Valentín Anguiano, PharmD Type 2 diabetes mellitus with hyperglycemia, with long-term current use of insulin (HCC) 12/28/2024 Orders Only [address] [address] Hanna Moyer MD Venous stasis dermatitis (Primary Dx) from Last 3 Months Immunizations Immunization Administration [...] Description 04/16/2025 2:00 PM EST Medication Management [facility] [address] [place] [address] Valentín Anguiano, PharmD [address] [place] [address] 04/19/2025 10:00 AM EST Office Visit [facility] OPTOMETRY [address] [place], [place] [phone] Marissa Kimball, OD [address] [place] [address] Health Maintenance Due Date Last Done Comments [...] Component 7(01/07/2025 9:38 AM EDT) No Valentín Anguiano, PharmGopal Help patients manage their type 2 diabetes [...] diabetes No Hanna Moyer MD Patient has chronic [...] Care Plan Weekly blood pressure task No Margarita Chenge, DRAG OUT MAN Weekly blood pressure task Care Plan Weekly blood pressure task No Margarita Chenge, DRAG OUT MAN Weekly blood pressure task Care Plan Weekly blood pressure task No Krystle Chengupe, DRAG OUT MAN Patient has diabetic eye disease Care Plan Patient has diabetic eye disease No Krystle Chengupe, DRAG OUT MAN Patient has diabetic eye disease Care Plan Patient has diabetic eye disease No Krystle Chengupe, DRAG OUT MAN Patient has diabetic eye disease Care Plan Patient has diabetic eye disease No Margarita Chenge, DRAG OUT MAN Patient has diabetic eye disease Care Plan Patient has diabetic eye disease No Okhipo, Latonya, DRAG OUT MAN Patient has chronic kidney disease Care Plan Patient has chronic kidney disease No Okhipo, Latonya, DRAG OUT MAN Patient has chronic kidney disease Care Plan Patient has chronic kidney disease No Okhipo, Latonya, DRAG OUT MAN Patient has chronic kidney disease Care Plan Patient has chronic kidney disease No Okhipo, Latonya, DRAG OUT MAN Patient has chronic kidney disease Care Plan Patient has chronic kidney disease No Okhipo, Latonya, DRAG OUT MAN Patient has diabetic neuropathy Care Plan Patient has diabetic neuropathy No Okhipo, Latonya, DRAG OUT MAN Patient has diabetic neuropathy Care Plan Patient has diabetic neuropathy No Okhipo, Latonya, DRAG OUT MAN Patient has diabetic neuropathy Care Plan Patient has diabetic neuropathy No Okhipo, Latonya, DRAG OUT MAN Patient has diabetic neuropathy Care Plan Patient has diabetic neuropathy No Okhipo, Latonya, DRAG OUT MAN Weekly blood pressure task Care Plan Weekly [...] Plan Patient has diabetic eye disease No Cral Angel RN Patient has diabetic eye disease [...] has diabetic neuropathy No Carl Angel RN Weekly blood pressure task Care Plan Weekly blood pressure task No Gopi, Snow Weekly blood pressure task Care Plan Weekly blood pressure task No Gopi, Snow Weekly blood pressure task Care Plan Weekly blood pressure task No Gopi, Snow Weekly blood pressure task Care Plan Weekly blood pressure task No Gopi, Snow Patient has diabetic eye disease Care Plan Patient has diabetic eye disease No Gopi, Snow Patient has diabetic eye disease Care Plan Patient has diabetic eye disease No Gopi, Snow Patient has diabetic eye disease Care Plan Patient has diabetic eye disease No Gopi, Snow Patient has diabetic eye disease Care Plan Patient has diabetic eye disease No Gopi, Snow Patient has chronic kidney disease Care Plan Patient has chronic kidney disease No Gopi, Snow Patient has chronic kidney disease Care Plan Patient has chronic kidney disease No Gopi, Snow Patient has chronic kidney disease Care Plan Patient has chronic kidney disease No Gopi, Snow Patient has chronic kidney disease Care Plan Patient has chronic kidney disease No Gopi, Snow Patient has diabetic neuropathy Care Plan Patient has diabetic neuropathy No Gopi, Snow Patient has diabetic neuropathy Care Plan Patient has diabetic neuropathy No Gopi, Snow Patient has diabetic neuropathy Care Plan Patient has diabetic neuropathy No Gopi, Snow Patient has diabetic neuropathy Care Plan Patient has diabetic neuropathy No Gopi, Snow Procedures Procedure Name Priority Date/Time Associated Diagnosis [...] with long-term current use of insulin (HCC) ALBUMIN, RANDOM URINE W/CREATININE Routine 07/23/2024 1:19 PM EDT LIPID PANEL WITH REFLEX TO DIRECT LDL Routine 06/18/2024 8:38 AM EDT Type 2 diabetes mellitus with hyperglycemia, with long-term current use of insulin (CMS/HCC) Hypertriglyceridemi a HEPATITIS C AB W/REFL TO [...] PM EDT) Influenza B Negative Negative, Indeterminate [facility] Swab 01/25/2025 2:06 PM EDT Latonya Okhipo DRAG OUT MAN POINT OF CARE TEST ENTER/EDIT ORDERABLES Final Result Performing Organization Address [facility]/ZIP Co de Phone Number [facility] [address] [place] [phone] * Influenza A (ID NOW Rapid Molecular) (01/25/2025 2:06 PM EDT) Influenza A Negative Negative, Indeterminate [facility] Swab 01/25/2025 2:06 PM EDT us Latonya Okhipo DRAG OUT MAN POINT OF CARE TEST ENTER/EDIT ORDERABLES Final Result Performing Organization Address [facility]/ZIP Co de Phone Number [facility] [address] [place] [phone] * POCT Rapid COVID Ag (01/25/2025 2:05 PM EDT) Rapid COVID Ag Negative Swab 01/25/2025 2:05 PM EDT Latonya Cheng DRAG OUT MAN POINT OF CARE TEST ENTER/EDIT ORDERABLES Final Result * (ABNORMAL) POCT Hgb A1c (01/07/2025 9:38 AM EDT) Hemoglobin A1C 7.0(A) 4.0 - 5.7 % QC Media Lot # [id number] Lot# Expiration Date [id number] Blood 01/07/2025 9:38 AM EDT Hanna Moyer MD POINT OF CARE TEST ENTER/EDIT OR DERABLES Final Result * Albumin, Random Urine W/Creatinine (07/23/2024 1:19 PM EDT) Creatinine, Urine 75.68 mg/dL [facility] Microalbumin Urine 19.0 mg/L [facility] Microalbum Creatinine Ratio Ur 25.1 <30 ug/mg cr [facility] Comment:Albumin/Creatinine R atio Reference Ranges: Normal: < 30 ug/mg creatinine Microalbuminuria: 30 - 300 ug/mg creatinineClinical Albuminuria: > 300 ug/mg creatinine 07/23/2024 1:19 PM EDT 07/23/2024 4:13 PM EDT Hanna Moyer MD LAB URINE ORDERABLES Final Resul t [facility] [address] [place] [phone] * (ABNORMAL) Lipid Panel with Reflex to Direct LDL (06/18/2024 8:38 AM EDT) Triglycerides 112 <150 mg/dL [facility] Comment:Desirable Triglyceri de: less than 150 mg/dLBorderline High Triglyceride 150-199 mg/dLHigh Triglyceride: 200-499 mg/dLVery High Triglyceride: greater than or equal to 5OO mg/dL Cholesterol 129 <200 mg/dL [facility] Comment:Desirable Cholestero l: less than 200 mg/dLBorderline High Cholesterol: 200-239 mg/dLHigh Cholesterol: greater than 239 mg/dL LDL Cholesterol Calculated 72 <100 mg/dL [facility] Comment:Desirable LDL: less than 100 mg/dLNear Optimal/Above Optimal LDL: 110- 129 mg/dLBorderline High LDL: 130-159 mg/dLHigh LDL: 160-189 mg/dLVery High LDL: greater than or equal to 190 mg/dL HDL Cholesterol 35(L) >40 mg/dL [facility] Comment:Desirable HDL: great er than 40 mg/dL Note: This HDL assay may give artificially low results in patients with liver disease. Blood 06/18/2024 8:38 AM EDT 06/18/2024 11:15 AM EDT us Hanna Moyer MD LAB BLOOD ORDERABLES Final Resul t Performing Organization Address [facility] Co de Phone Number [facility] [address] [place] [phone] * Hepatitis C Antibody with Reflex to HCV, RNA, Quantitative, Real-Time PCR (01/07/2023 11:35 AM EDT) Hepatitis C Antibody Nonreactive Nonreactive [facility] Comment:Antibodies to HCV no t detected; does not exclude early acuteHCV infection. Blood Venous blood specimen / Unknown 01/07/2023 11:35 AM EDT 01/07/2023 1:12 PM EDT Hanna Moyer MD LAB BLOOD ORDERABLES Final Resul t Performing Organization Address City/[facility]/ZIP Co de Phone Number [facility] [address] [place] [phone] * HIV 1/2 ANTIGEN/ANTIBODY,FOURTH GENERATION W/RFL (04/19/2021 9:19 AM EST) HIV-1/2 ANTIGEN AND ANTIBODIES, 4TH GENERATION W/ REFLEX NON-REACT BRIGETTE NON-REACT BRIGETTE [facility] Comment: HIV-1 antigen and HIV-1/HIV-2 [...] purpose. For additional information please refer to http://education.[employer]/faq/HYW063 (This link is being provided for informational/ educational purposes only.) The performance of this assay has not been clinically validated in patients less than 2 years old. 04/19/2021 9:19 AM EST us Hanna Moyer MD LAB BLOOD ORDERABLES Final Resul t [facility] [address] from Last 3 Months or Most [...] diabetic neuropathy 03/09/2025 Weekly blood pressure task 03/12/2025 Weekly blood pressure task 03/12/2025 Weekly blood pressure task 03/12/2025 Weekly blood pressure task 03/12/2025 Patient has diabetic eye disease 03/12/2025 Patient has diabetic eye disease 03/12/2025 Patient has diabetic eye disease 03/12/2025 Patient has diabetic eye disease 03/12/2025 Patient has chronic kidney disease 03/12/2025 Patient has chronic kidney disease 03/12/2025 Patient has chronic kidney disease 03/12/2025 Patient has chronic kidney disease 03/12/2025 Patient has diabetic neuropathy 03/12/2025 Patient has diabetic neuropathy 03/12/2025 Patient has diabetic neuropathy 03/12/2025 Patient has diabetic neuropathy 03/12/2025 Insurance , [address] [place] [address] Care Teams Mophead Sewer Relationship Specialty Start Date End Date Hanna Moyer MD [address] [place] [address] PCP - General Family Medicine 10/08/11 Valentín Anguiano, PharmD [address] [place] [address] Pharmacist Internal Medicine 01/18/23
--- OUTSIDE RECORDS SUMMARY | 2025-03-29 08:48 | XMS_ITS | Encounter Summary ---
Author Organization [facility] [facility] Address [address] [facility] 7t [place] [address] Care Team Providers Care Motor Builder Winder Name Role Phone Hanna Moyer MD Primary Care Provider [phone] Valentín Anguiano PharmD Unavailable [phone] Reason for Referral * Consultation (Routine) - Authorized Specialty Diagnoses / Procedures Referred By Contac t Referred To Contact Pharmacy Diagnoses Type 2 diabetes mellitus with hyperglycemia, with long-term current use of insulin (HCC) Primary hypertension Hanna Moyer MD [address] [place] [phone] Phone: tel: fax: Referral ID Status Reason Start Date Expiration Date Visits Requested Visits Authorized [id number] Authorized Consult and Treat 09/02/2024 09/02/2025 6 6 Encounter Details Date Type Department Care Team (Late st Contact Info) Description 09/02/2024 Orders Only [facility] MEDICINE [address] [place] [phone] Hanna Moyer MD [address] [place] [address] [phone] Type 2 diabetes mellitus with hyperglycemia, with [...] Description 04/16/2025 2:00 PM EST Medication Management [facility] MEDICINE [address] [place] [address] Valentín Anguiano, PharmD [address] [place] [address] 04/19/2025 10:00 AM EST Office Visit [facility] OPTOMETRY [address] [place] [address] Marissa Kimball, OD [address] [place] [address] Scheduled Referrals Name Type Priority Associated Diagnoses Orde r Schedule Referral to Pharmacy CDTM Outpatient Referral Routine Type 2 diabetes mellitus with hyperglycemia, with long-term current use of insulin ([facility]) Primary hypertension Ordered: 09/02/2024 documented as of [...] hyperglycemia, with long-term current use of insulin ([facility])- Primary Primary hypertension Unspecified essential hypertension documented in this encounter Additional Health Concerns Assessment Noted Time PHQ-9 Depression Total Score: 14 025 12:01 PM EST documented as of this encounter Care Teams Motor Builder Winder Relationship Specialty Start Date End Date Hanna Moyer MD [address] [place] [address] PCP - General Family Medicine 10/08/11 Valentín Anguiano PharmD [address] [place] [address] Pharmacist Internal Medicine 01/18/23 documented as of this encounter
--- OUTSIDE RECORDS SUMMARY | 2025-03-29 08:49 | XMS_ITS | Encounter Summary ---
Author Organization [employer] Address [address] [facility] 7t [place] [address] Care Team Providers Care Lime Hide Inspector Name Role Phone Hanna Moyer MD Primary Care Provider [phone] Valentín Anguiano PharmD Unavailable [phone] Reason for Referral * Consultation (Routine) - Closed Specialty Diagnoses / Procedures Referred By Linda johnson Referred To Contact Physical Therapy Diagnoses Chronic left shoulder pain Hanna Moyer MD [address] [place] [address] Phone: tel: fax: Referral ID Status Reason Start Date Expiration Date V isits Requested Visits Authorized [id number] Closed Specialty Services Required 08/11/2024 08/11/2025 1 1 Encounter Details Date Type Department Care Team (Late st Contact Info) Description 08/11/2024 Orders Only [facility] MEDICINE [address] [place], [place] [phone] Hanna Moyer MD [address] [place], [place] [phone] Chronic left shoulder pain (Primary Dx) Social [...] Description 04/16/2025 2:00 PM EST Medication Management [facility] [address] [place] [address] Valentín Anguiano, PharmD [address] [place] [address] 04/19/2025 10:00 AM EST Office Visit [facility] OPTOMETRY [address] [place] [address] Marissa Kimball, OD [address] [place] [address] Scheduled Referrals Name Type Priority Associated Diagnoses [...] PM EDT Narrative 08/12/2024 12:45 [place] [address] XRay Report Signed Patient: Zeb Topete MR#: [id number] : 1980 Acct:[id number] Age/Sex: 43 / M ADM Date: 08/12/24 Loc: HO.HHCX Attending Dr: Hanna Moyer MD Ordering Physician: Hanna Moyer MD Date of Service: 08/12/24 Procedure(s): XR shoulder LT min 2V Accession Number(s): [id number] cc: Hanna Moyer MD EXAMINATION: XR SHOULDER, [...] 08/12/24 1243 DD/ 1216 TD/TT: 08/12/24 1236 Veteran Appeals Reviewer: Procedure Note Donotuseinterpreter, Image - 08/12/[address] [address] XRay Report Signed Patient: Zeb TopeteMR#: [id number] : 1980Acct:[id number] Age/Sex: 43 / MADM Date: 08/12/24 Loc: HO.HHCX Attending Dr: Hanna Moyer MD Ordering Physician: Hanna Moyer MD Date of Service: 08/12/24 Procedure(s): XR shoulder LT min 2V Accession Number(s): [id number] cc: Hanna Moyer MD EXAMINATION: XR SHOULDER, [...] 08/12/24 1243 DD/ 1216 TD/TT: 08/12/24 1236 Veteran Appeals Reviewer: Hanna Moyer MD IMG XR PROCEDURES Final Result documented in this encounter Visit Diagnoses Diagnosis Chronic left shoulder pain- Primary Pain in joint, shoulder region documented in this encounter Additional Health Concerns Assessment Noted Time PHQ-9 Depression Total Score: 14 025 12:01 PM EST documented as of this encounter Care Teams Lime Hide Inspector Relationship Specialty Start Date End Date Hanna Moyer MD [address] [place] [address] PCP - General Family Medicine 10/08/11 Valentín Anguiano, Sean [address] [place] [address] Pharmacist Internal Medicine 01/18/23 documented as of this encounter
== END ==
LOC: HO.SL 08:32
PROVIDERS: PCP Family Medicine; Visit Provider Physician Assistant Medical
DX: G47.19 Other hypersomnia (principal)
CPT/HCPCS: 95806

== ENCOUNTER → 2025-04-04 08:41 | Outpatient (BNV) | payer OTHER, SELFPAY | PROVIDERS: PCP Family Medicine; Visit Provider Psychiatry & Neurology Neurology | DX: G47.33 Obstructive sleep apnea (adult) (pediatric) (principal) | CPT/HCPCS: 95806 ==